=== PATIENT | male | born 1940 | race American Indian/Alaskan Native ===

== ENCOUNTER 2016-04-27 12:15 | Inpatient (IN) | payer MEDICARE ==
[2016-04-27] MEDS ORDERED: MAGNESIUM SULFATE 2GM/50ML 50 ML IV ONE (13:04)
[2016-04-27] MEDS ORDERED: LASIX IV ONE (13:07)
[2016-04-27] MEDS ORDERED: DUONEB 0.5 MG-3 MG/3 ML SOLN IH ONE (13:08)
--- NOTE | 2016-04-27 13:10 | Emergency Department Report ---
HPI - General Chief Complaint: Dyspnea/Respdistress Time Seen by Provider: 04/27/16 12:49 - HPI HPI: The patient is a 72-year-old male with a significant history of COPD and lung cancer, presents for evaluation of dyspnea. The patient reports dyspnea for greater than the past one day, constant, severe, exacerbated with physical activity, worsening this morning. The patient reports associated wheezing as well. The patient denies fever, chest pain, cough, syncope, hemoptysis, unilateral leg swelling, back pain, abdominal pain, vomiting. ED Past Medical Hx - Past Medical History Hx Hypertension: Yes Hx Diabetes: Yes Hx GERD: Yes Hx Arthritis: Yes Hx Psychiatric Treatment: Yes (personality disorder, insomnia, restlessness & agitation) Hx Asthma: Yes Hx COPD: Yes Additional medical history: a-fib, cataract - Surgical History Hx Open Heart Surgery: Yes Additional Surgical History: JONAH - Social History Smoking Status: Former Smoker Substance Use Type: None - Medications Home Medications: Home Medications Medication Instructions Recorded Confirmed Last Taken Type Albuterol Sulfate [Proair 90 mcg IH Q12HR PRN 03/23/16 04/27/16 1 Day Ago History Respiclick] Amiodarone [Cordarone 200 MG TAB] 200 mg PO BID 03/23/16 04/27/16 1 Day Ago History Aspirin [Aspirin BABY CHEW TAB] 81 mg PO QDAY 03/23/16 04/27/16 1 Day Ago History Atorvastatin Calcium [Lipitor] 80 mg PO QHS 03/23/16 04/27/16 1 Day Ago History Bimatoprost [Lumigan 0.01%] 1 drop OP QPM 03/23/16 04/27/16 1 Day Ago History Carvedilol [Coreg] 6.25 mg PO BID 03/23/16 04/27/16 1 Day Ago History Clopidogrel [Plavix] 75 mg PO QDAY 03/23/16 04/27/16 1 Day Ago History Famotidine [Pepcid] 10 mg PO BID 03/23/16 04/27/16 1 Day Ago History Glimepiride [Amaryl] 1 mg PO QAM 03/23/16 04/27/16 1 Day Ago History Insulin Regular, Human [HumuLIN R] See Protocol SQ ACHS 03/23/16 04/27/16 1 Day Ago History Ipratropium/Albuterol Sulfate 1 ampul IH Q4HR 03/23/16 04/27/16 1 Day Ago History [Duoneb 0.5 mg-3 mg/3 ml Soln] Latanoprost 0.005% [Xalatan 0.005%] 1 drop OP QPM 03/23/16 04/27/16 1 Day Ago History Lisinopril [Zestril TAB] 40 mg PO QDAY 03/23/16 04/27/16 1 Day Ago History Metformin HCl [Glucophage Xr] 500 mg PO BID 03/23/16 04/27/16 1 Day Ago History Mirtazapine 7.5 mg PO QHS 03/23/16 04/27/16 1 Day Ago History Montelukast [Singulair] 10 mg PO QPM 03/23/16 04/27/16 1 Day Ago History Risperidone Microspheres 25 mg IM QMONTH 03/23/16 04/27/16 1 Day Ago History [RisperDAL Consta] Zolpidem [Ambien] 5 mg PO QHS PRN 03/23/16 04/27/16 1 Day Ago History traMADol [Ultram 50 MG tab] 50 mg PO Q4HR PRN 03/23/16 04/27/16 1 Day Ago History Diltiazem Cd [Cardizem CD] 240 mg PO QDAY #30 capsule 03/27/16 04/27/16 Unknown Rx LORazepam [Ativan] 1 mg PO TID PRN 04/27/16 04/27/16 Unknown History Nitroglycerin [Nitrostat] 0.4 mg SL Q5M PRN 04/27/16 04/27/16 Unknown History ED Review of Systems ROS: Stated complaint: MELIZA Other details as noted in HPI Constitutional: denies: fever ENT: denies: throat or neck pain Respiratory: reports shortness of breath Cardiovascular: denies: chest pain Endocrine: denies unexplained weight loss or gain Gastrointestinal: denies: abdominal pain, nausea Genitourinary: denies: dysuria Musculoskeletal: denies: leg swelling Skin: denies: rash Neurological: denies: headache Hematological/Lymphatic: denies: easy bleeding or easy bruising Psych: denies sadness or hopelessness Physical Exam - Physical Exam Vital Signs: Vital Signs 04/27/16 12:38 O2 Sat by Pulse 90 Oximetry Physical Exam: General: well-nourished, well-developed, no acute distress Head: Normocephalic, atraumatic Eyes: normal sclera ENT: Mucous membranes are pale and dry Neck: trachea midline, neck supple, No neck stiffness, no cervical adenopathy Respiratory: Significantly diminished breath sounds and wheezing present throughout lung jalloh bilaterally, positive costal retractions, patient in respiratory distress Cardio: S1 and S2 present, no murmurs, rubs, gallops, capillary refill is delayed Abdomen: Normoactive bowel sounds, soft abdomen, no rigidity, no guarding or rebound tenderness Chest WALL/Back: No tenderness to palpation of the chest wall, no CVA tenderness with percussion Musc: No pitting edema Skin: No rash Neuro: no facial drooping, normal speech Psych: Normal affect ED Course Vital Signs 04/27/16 12:38 O2 Sat by Pulse 90 Oximetry ED Medical Decision Making - Lab Data Result diagrams: 04/27/16 13:06 04/27/16 13:06 - Medical Decision Making The patient was seen and examined by myself. The patient is placed on a satellite project site monitor and continuous pulse ox. On initial evaluation, the patient was found to be in no distress. Evaluation orders were placed. The patient is given a DuoNeb breathing treatment. The patient is given IV site of a jaw and IV magnesium for treatment of acute COPD exacerbation. On reassessment the patient remains in respiratory distress and is placed on BiPAP. Chest x-ray demonstrates interstitial infiltrate. Bedside assessments were performed to evaluate patient responsiveness to positive ventilation. Lab results reveal elevated potassium of 6.5, elevated PCO2 of 75, low pH 7.15, and leukocytosis, WBC 14. The patient is given a by mouth, insulin, sodium bicarbonate, Kayexalate for treatment of hyperkalemia. The on-call hospitalist service was contacted. They agreed to admit the patient for further treatment and close monitoring. The ED admit order was placed. The patient was admitted in guarded condition. Critical Care Time: Yes Critical care time in (mins) excluding proc time.: 35 Critical care attestation.: Due to the critical nature of this patients presentation, which necessitated multiple bedside assessments, manipulation and supportive measures to prevent further life threatening deterioration, I would like to bill for a total of 35 minutes of critical care time. This was exclusive of any separately billable procedures. Critical Care Time: 35 ED Disposition Clinical Impression: COPD exacerbation, Acute hyperkalemia, Acute respiratory failure with hypoxia and hypercapnia, Acute respiratory acidosis Disposition: OP ADMITTED IP TO THIS HOSP Is pt being admited?: Yes Does the pt Need Aspirin: Yes Condition: Critical Instructions: Chronic Obstructive Pulmonary Disease (ED) Referrals: TATIANA AGUILAR DO [Primary Care Provider] - 3-5 Days Time of Disposition: 13:10
[2016-04-27] MEDS ORDERED: BABY ASPIRIN PO ONE (13:11)
[2016-04-27] MEDS ORDERED: ATIVAN ONE (13:19)
[2016-04-27] MEDS ORDERED: ATIVAN IV ONE (13:21)
--- NOTE | 2016-04-27 13:25 | XRay Report ---
AP CHEST : 04/27/16 12:15:00 CLINICAL: Chest pain. COMPARISON:03/22/16 FINDINGS: The chin obscures the upper mid chest. Normal heart and pulmonary vessels. Chronic bilateral interstitial opacities unchanged since the previous exam. IMPRESSION: No acute cardiopulmonary process.
[2016-04-27 13:39] LABS: Alanine Aminotransferase 14 units/L (7-56); Albumin 3.6 g/dL (3.9-5); Albumin/Globulin Ratio 0.9 %; Alkaline Phosphatase 134 units/L (35-129); Anion Gap 18 mmol/L; BUN/Creatinine Ratio 13.07; Bilirubin,Total 0.7 mg/dL (0.1-1.2); Blood Urea Nitrogen 17 mg/dL (9-20); Calcium 9.2 mg/dL (8.4-10.2); Carbon Dioxide 23 mmol/L (22-30); Chloride 102.2 mmol/L (98-107); Glucose 197 mg/dL (75-100); Sodium 137 mmol/L (137-145); Total Protein 7.5 g/dL (6.3-8.2)
[2016-04-27 13:39] LABS: ISTAT Base Excess -2; ISTAT HCO3 26.6; ISTAT PCO2 75.2 (35-45); ISTAT PH 7.157 (7.35-7.45); ISTAT PO2 172 (80-105); ISTAT SO2 99; ISTAT TCO2 29
[2016-04-27 13:47] LABS: Basophils % (Auto) 1.1 % (0.0-1.8); Eosinophils % (Auto) 3.4 % (0.0-4.3); Mean Corpuscular HGB Conc 29 % (32-34); Mean Corpuscular Volume 74 fl (84-94); Platelet Count 561 K/mm3 (140-440); Red Blood Count 4.37 M/mm3 (3.65-5.03); White Blood Count 14.6 K/mm3 (4.5-11.0)
[2016-04-27 13:49] LABS: Hematocrit 32.5 % (35.5-45.6); Hemoglobin 9.5 gm/dl (11.8-15.2)
[2016-04-27 13:50] LABS: Mean Corpuscular Hemoglobin 22 pg (28-32)
[2016-04-27 13:51] LABS: Potassium 6.5 mmol/L (3.6-5.0)
[2016-04-27] MEDS ORDERED: PROVENTIL IH ONE (14:07)
[2016-04-27] MEDS ORDERED: SODIUM BICARBONATE IV ONE ×2 (14:07→15:00)
[2016-04-27] MEDS ORDERED: KAYEXALATE PO ONE (14:08)
[2016-04-27] MEDS ORDERED: D50W (25GM) IV ONE (14:13)
[2016-04-27] MEDS: D50W (25GM) IV ONE (14:27)
[2016-04-27 14:43] LABS: Bacteria,Urine 1+ /HPF (Negative); Bilirubin,Urine NEG (Negative); Blood,Urine NEG (Negative); Ketones,Urine NEG (Negative); Leukocyte Esterase,Urine NEG (Negative); Mucus,Urine FEW /HPF; Nitrite,Urine NEG (Negative); Urobilinogen,Urine < 2.0 mg/dL (<2.0)
[2016-04-27 15:11] LABS: ISTAT Base Excess 0; ISTAT PCO2 58.9 (35-45); ISTAT PO2 104 (80-105); ISTAT SO2 97; ISTAT TCO2 29
--- NOTE | 2016-04-27 15:35 | Event Note ---
Date: 04/27/16 See H/p in reports Acute resp failure [facility]
[2016-04-27] MEDS ORDERED: AMBIEN PO PRN (16:28)
[2016-04-27] MEDS ORDERED: RISPERIDONE MICROSPHERES 25 MG IM SCH (16:30)
[2016-04-27] MEDS ORDERED: ALUM-MAG HYDROX-SIMETH 200-200-20MG/5ML PO PRN (16:44)
[2016-04-27] MEDS ORDERED: DULCOLAX PR PRN (16:44)
[2016-04-27] MEDS ORDERED: MILK OF MAGNESIA PO PRN (16:44)
[2016-04-27] MEDS ORDERED: DILAUDID IV PRN (16:44)
[2016-04-27] MEDS ORDERED: DUONEB 0.5 MG-3 MG/3 ML SOLN IH PRN (16:55)
[2016-04-27] MEDS ORDERED: NON-FORMULARY (Bimatoprost [Lumigan 0.01%] 1 DROP) OP SCH (18:00)
[2016-04-27] MEDS ORDERED: LEVAQUIN 750MG/150ML 150 ML IV SCH (18:00)
--- NOTE | 2016-04-27 18:36 | History and Physical Report ---
CHIEF COMPLAINT: Worsening shortness of breath for past one day. HISTORY OF PRESENT ILLNESS: A 75-year-old -[place] male with multiple medical problems, end-stage lung disease with hypertension, COPD, diabetes, gastroesophageal reflux disease, arthritis, and personality disorder, who comes in for increasing shortness of breath and worsening shortness of breath since yesterday. The patient reports dyspnea for greater than 1 day and unable to do even minimal exertion. Wheezing heavily. No fever, no chills. No hemoptysis. No leg swelling. PAST MEDICAL HISTORY: Significant for end-stage lung disease, hypertension, diabetes, COPD, gastroesophageal reflux disease, arthritis, personality disorder, insomnia, restlessness and agitation, asthma, atrial fibrillation, and cataracts. PAST SURGICAL HISTORY: Open heart surgery. SOCIAL HISTORY: Heavy smoker, stopped smoking recently. FAMILY HISTORY: Significant for hypertension. CURRENT MEDICATIONS: Amiodarone 200 mg twice a day, aspirin 81 mg p.o. daily, Lipitor 80 mg p.o. at bedtime, Lumigan 0.01% one drop at night time, Coreg 6.25 twice a day, and clopidogrel, Plavix 75 mg p.o. daily. Pepcid 10 mg p.o. b.i.d. Glimepiride, Amaryl 1 mg p.o. daily. Regular insulin a.c. and at bedtime, dose unknown. Lisinopril 40 mg p.o. daily, metformin 500 mg twice a day, Singulair 10 mg p.o. daily, Risperdal 25 mg IM q. monthly, zolpidem 5 mg p.o. at bedtime, tramadol 50 mg p.o. q. 4 hours, diltiazem 240 mg p.o. daily, lorazepam 1 mg p.o. t.i.d., and nitroglycerin 0.4 mg sublingual q. 5 minutes p.r.n. REVIEW OF SYSTEMS: Significant for both severe shortness of breath and wheezing and is unable to do even a small amount of physical activity. Otherwise, review of systems is essentially negative. PHYSICAL EXAMINATION: GENERAL: Elderly male, cooperative during examination, in severe respiratory distress, on BiPAP. VITAL SIGNS: Blood pressure is 99/62 and pulse is 102. Sats were initially low but on BiPAP near 99%. Respiratory rate is 25. HEENT: Unremarkable. Pupils are equal and reactive. NECK: Supple, no lymphadenopathy, no thyromegaly. LUNGS: Clear to auscultation and percussion. Very poor air entry. Bilateral wheezing and rhonchi, inspiratory and expiratory present. Severely decreased air entry. CARDIOVASCULAR: S1, S2 heard. No gallop, no murmur, no rub. Apical impulse in left fifth intercostal space and midclavicular line. ABDOMEN: Soft and benign. No hepatosplenomegaly. No guarding, no rigidity. Hernial orifices are normal. EXTREMITIES: Good pedal pulses. No pedal edema. CENTRAL NERVOUS SYSTEM: Decreased sensorium secondary to hypoxia. LABORATORY DATA: Chest x-ray shows severe emphysema. No acute cardiopulmonary process. Has chronic bilateral interstitial opacities, unchanged since the previous exam. Labs significant for white count of 14,600, H and H of 9.5 and 32.5, and platelet count of 561,000. Potassium is 6.5, sodium is 137, BUN and creatinine are 17 and 1.3, alkaline phosphatase is 134. Urine shows protein 100, otherwise no signs of infection. ABG: PCO2 of 75, pH of 7.15. Repeated ABG shows pH of 7.27, pCO2 of 58.9, and pO2 of 104. ASSESSMENT AND PLAN: 1. Acute respiratory failure with hypoxia and hypercapnia, aggressive nebulizer treatments, IV Levaquin and IV Solu-Medrol at 125 q. 8 hours. Tempering Kiln Tender consult requested. Intubation if necessary. 2. Arrhythmias and atrial fibrillation, amiodarone 200 mg twice a day to be continued. 3. Hyperlipidemia. Continue Lipitor 80 mg daily. 4. Hypertension. Continue Coreg 6.25 b.i.d. and lisinopril 40 mg p.o. daily and diltiazem 240 mg p.o. daily. 5. Insulin-dependent diabetes, insulin a.c. and at bedtime and coverage. Check A1c. 6. Personality disorder and agitation. Continue Risperdal 25 mg IM q. monthly. 7. Generalized anxiety disorder. Continue lorazepam 1 mg t.i.d. 8. Coronary artery disease. Continue Plavix. 9. Deep venous thrombosis prophylaxis, Lovenox 40 mg subcutaneous daily. PROGNOSIS: Guarded. CRITICAL CARE STATEMENT: The high probability of a clinically significant sudden or life-threatening deterioration of the cardiorespiratory system required my full and direct attention, intervention, and person management. Aggregate critical care time was 40 minutes. The time is in addition to the time spent performing the reported procedures but includes the followin. Data review and interpretation. 2. The patient assessment and monitoring of vital signs. 3. Documentation. 4. Medication orders and management. JOB# [id number] JERRICA/NTS
[2016-04-27] MEDS ORDERED: KAYEXALATE ONE (21:28)
[2016-04-27] MEDS ORDERED: PEPCID PO SCH (22:00)
[2016-04-27] MEDS ORDERED: NON-FORMULARY (Mirtazapine [Mirtazapine] 7.5 MG) PO SCH (22:00)
[2016-04-27] MEDS: CORDARONE PO SCH (22:01)
[2016-04-27] MEDS: BABY ASPIRIN PO SCH (22:01)
[2016-04-27] MEDS: CARDIZEM CD PO SCH (22:01)
[2016-04-27] MEDS: ZESTRIL PO SCH (22:03)
[2016-04-27] MEDS: XALATAN 0.005% OU SCH (22:03)
[2016-04-27] MEDS: PLAVIX PO SCH (22:03)
[2016-04-27] MEDS: COREG PO SCH (22:13)
[2016-04-27] MEDS: REMERON PO SCH (22:13)
[2016-04-27] MEDS: PEPCID PO SCH (22:13)
[2016-04-27] MEDS: GLUCOPHAGE XR PO SCH (22:13)
[2016-04-27] MEDS: SINGULAIR PO SCH (22:14)
[2016-04-27] MEDS ORDERED: KAYEXALATE PR ONE ×2 (22:16→22:22)
[2016-04-28] MEDS: ATIVAN PO PRN ×2 (00:22→10:30)
[2016-04-28] MEDS: DUONEB 0.5 MG-3 MG/3 ML SOLN IH SCH ×5 (01:26→20:38)
[2016-04-28 07:07] LABS: Alanine Aminotransferase 11 units/L (7-56); Albumin 3.3 g/dL (3.9-5); Albumin/Globulin Ratio 0.9 %; Alkaline Phosphatase 102 units/L (35-129); Anion Gap 22 mmol/L; Bilirubin,Total 0.9 mg/dL (0.1-1.2); Blood Urea Nitrogen 26 mg/dL (9-20); Calcium 9.1 mg/dL (8.4-10.2); Carbon Dioxide 25 mmol/L (22-30); Chloride 102.7 mmol/L (98-107); Glucose 130 mg/dL (75-100); Potassium 5.3 mmol/L (3.6-5.0); Sodium 144 mmol/L (137-145)
[2016-04-28 07:12] LABS: Hematocrit 29.5 % (35.5-45.6); Hemoglobin 8.9 gm/dl (11.8-15.2); Mean Corpuscular HGB Conc 30 % (32-34); Mean Corpuscular Hemoglobin 22 pg (28-32); Mean Corpuscular Volume 74 fl (84-94); Platelet Count 449 K/mm3 (140-440); Red Blood Count 4.01 M/mm3 (3.65-5.03); Red Cell Distribution Width 20.3 % (13.2-15.2); White Blood Count 9.3 K/mm3 (4.5-11.0)
[2016-04-28 07:13] LABS: Basophils % (Auto) 0.3 % (0.0-1.8)
[2016-04-28] MEDS: AMARYL PO SCH (08:23)
[2016-04-28] MEDS ORDERED: NON-FORMULARY (Glimepiride [Amaryl] 1 MG) PO SCH (10:00)
--- NOTE | 2016-04-28 10:01 | Progress Note ---
Assessment and Plan Assessment and plan: 1. Acute hypoxic/hypercapnic respiratory failure. Continue BiPAP as needed. Pulmonary consultation. 2. Acute COPD exacerbation. Continue aggressive nebulizer treatment, IV antibiotics and IV Solu-Medrol. 3. Atrial fibrillation. Continue amiodarone. 4. Hypertension. Continue Coreg, diltiazem and lisinopril. 5. Hyperlipidemia. Continue Lipitor. 6. Personality disorder. Continuing Risperdal and Ativan. The high probability of a clinically significant, sudden or life threatening deterioration of the [respiratory] system(s) required my full and direct attention, intervention and personal management. The aggregate critical care time was [31] minutes. This time is in addition to time spent performing reported procedures but includes the following: [x] Data Review and interpretation [x] Patient assessment and monitoring of vital signs [x] Documentation [x] Medication orders and management History Interval history: 75-year-old -[place]og[place] male with multiple medical problems including end- stage lung disease, afib, hypertension, COPD, diabetes mellitus type 2, GERD, osteoarthritis and personality disorder who presented to the emergency department with complaints of dyspnea. Patient currently with BiPAP at 35%. Hospitalist Physical - Constitutional Vitals: Temp Pulse Resp BP Pulse Ox 63 24 116/56 99 04/28/16 08:23 04/28/16 08:23 04/28/16 08:07 04/28/16 08:07 General appearance: Present: no acute distress, well-nourished - EENT Eyes: Present: PERRL, EOM intact ENT: hearing intact, clear oral mucosa, dentition normal - Neck Neck: Present: supple, normal ROM - Respiratory Respiratory effort: normal Respiratory: bilateral: diminished, rhonchi - Cardiovascular Rhythm: regular Heart Sounds: Present: S1 & S2. Absent: gallop, rub - Extremities Extremities: no ischemia, No edema, Full ROM - Abdominal General gastrointestinal: soft, non-tender, non-distended, normal bowel sounds - Integumentary Integumentary: Present: clear, warm, dry - Neurologic Neurologic: CNII-XII intact, moves all extremities Results - Labs CBC & Chem 7: 04/28/16 06:26 04/28/16 06:26 Labs: Laboratory Last Values WBC 9.3 K/mm3 (4.5-11.0) 04/28/16 06:26 RBC 4.01 M/mm3 (3.65-5.03) 04/28/16 06:26 Hgb 8.9 gm/dl (11.8-15.2) L 04/28/16 06:26 Hct 29.5 % (35.5-45.6) L 04/28/16 06:26 MCV 74 fl (84-94) L 04/28/16 06:26 MCH 22 pg (28-32) L 04/28/16 06:26 MCHC 30 % (32-34) L 04/28/16 06:26 RDW 20.3 % (13.2-15.2) H 04/28/16 06:26 Plt Count 449 K/mm3 (140-440) H 04/28/16 06:26 Lymph % (Auto) 11.0 % (13.4-35.0) L 04/28/16 06:26 [place] % (Auto) 1.7 % (0.0-7.3) 04/28/16 06:26 Eos % (Auto) 0.0 % (0.0-4.3) 04/28/16 06:26 Baso % (Auto) 0.3 % (0.0-1.8) 04/28/16 06:26 Lymph # 1.0 K/mm3 (1.2-5.4) L 04/28/16 06:26 [place] # 0.2 K/mm3 (0.0-0.8) 04/28/16 06:26 Eos # 0.0 K/mm3 (0.0-0.4) 04/28/16 06:26 Baso # 0.0 K/mm3 (0.0-0.1) 04/28/16 06:26 Seg Neutrophils % 87.0 % (40.0-70.0) H 04/28/16 06:26 Seg Neutrophils # 8.1 K/mm3 (1.8-7.7) H 04/28/16 06:26 POC ABG pH 7.270 (7.35-7.45) L 04/27/16 15:03 POC ABG pCO2 58.9 (35-45) H 04/27/16 15:03 POC ABG pO2 104 (80-105) 04/27/16 15:03 POC ABG HCO3 27.0 04/27/16 15:03 POC ABG Total CO2 29 04/27/16 15:03 POC ABG O2 Sat 97 04/27/16 15:03 POC ABG Base Excess 0 04/27/16 15:03 FiO2 45 % 04/27/16 15:03 Sodium 144 mmol/L (137-145) D 04/28/16 06:26 Potassium 5.3 mmol/L (3.6-5.0) H 04/28/16 06:26 Chloride 102.7 mmol/L (98-107) 04/28/16 06:26 Carbon Dioxide 25 mmol/L (22-30) 04/28/16 06:26 Anion Gap 22 mmol/L 04/28/16 06:26 BUN 26 mg/dL (9-20) H 04/28/16 06:26 Creatinine 1.3 mg/dL (0.8-1.5) 04/28/16 06:26 Estimated GFR > 60 ml/min 04/28/16 06:26 BUN/Creatinine Ratio 20.00 % 04/28/16 06:26 Glucose 130 mg/dL (75-100) H 04/28/16 06:26 Lactic Acid 0.8 mmol/L (0.7-2.0) 04/27/16 13:06 Calcium 9.1 mg/dL (8.4-10.2) 04/28/16 06:26 Total Bilirubin 0.9 mg/dL (0.1-1.2) 04/28/16 06:26 AST 16 units/L (5-40) 04/28/16 06:26 ALT 11 units/L (7-56) 04/28/16 06:26 Alkaline Phosphatase 102 units/L (35-129) 04/28/16 06:26 Troponin T 0.026 ng/mL (0.00-0.029) 04/27/16 13:06 NT-Pro-B Natriuret Pep 818.3 pg/mL (0-900) 04/27/16 13:06 Total Protein 7.0 g/dL (6.3-8.2) 04/28/16 06:26 Albumin 3.3 g/dL (3.9-5) L 04/28/16 06:26 Albumin/Globulin Ratio 0.9 % 04/28/16 06:26 Urine Color Yellow (Yellow) 04/27/16 14:00 Urine Turbidity Slightly-cloudy (Clear) 04/27/16 14:00 Urine pH 5.0 (5.0-7.0) 04/27/16 14:00 Ur Specific [place] 1.019 (1.003-1.030) 04/27/16 14:00 Urine Protein 100 mg/dl mg/dL (Negative) 04/27/16 14:00 Urine Glucose (UA) Neg mg/dL (Negative) 04/27/16 14:00 Urine Ketones Neg mg/dL (Negative) 04/27/16 14:00 Urine Blood Neg (Negative) 04/27/16 14:00 Urine Nitrite Neg (Negative) 04/27/16 14:00 Urine Bilirubin Neg (Negative) 04/27/16 14:00 Urine Urobilinogen < 2.0 mg/dL (<2.0) 04/27/16 14:00 Ur Leukocyte Esterase Neg (Negative) 04/27/16 14:00 Urine WBC (Auto) 1.0 /HPF (0.0-6.0) 04/27/16 14:00 Urine RBC (Auto) 1.0 /HPF (0.0-6.0) 04/27/16 14:00 Urine Bacteria (Auto) 1+ /HPF (Negative) 04/27/16 14:00 Hyaline Casts 1 /LPF 04/27/16 14:00 Urine Mucus Few /HPF 04/27/16 14:00
[2016-04-28] MEDS: CARDIZEM CD PO SCH (10:22)
[2016-04-28] MEDS: BABY ASPIRIN PO SCH (10:23)
[2016-04-28] MEDS: CORDARONE PO SCH ×2 (10:24→22:06)
[2016-04-28] MEDS: GLUCOPHAGE XR PO SCH ×2 (10:26→22:07)
--- NOTE | 2016-04-28 10:27 | Consultation ---
History of Present Illness Consult date: 04/28/16 Requesting physician: STARLA BUSTAMANTE Reason for consult: other (Acute Hypoxemic Hypercapnic Respiratory Failure) History of present illness: PULMONARY CONSULT NOTE (Full note dictated # [id number]) please see dictated notes for full details Medications and Allergies Allergies Allergy/AdvReac Type Severity Reaction Status Date / Time No Known Allergies Allergy Verified 04/27/16 20:01 Home Medications Medication Instructions Recorded Confirmed Last Taken Type Albuterol Sulfate [Proair 90 mcg IH Q12HR PRN 03/23/16 04/27/16 1 Day Ago History Respiclick] Amiodarone [Cordarone 200 MG TAB] 200 mg PO BID 03/23/16 04/27/16 1 Day Ago History Aspirin [Aspirin BABY CHEW TAB] 81 mg PO QDAY 03/23/16 04/27/16 1 Day Ago History Atorvastatin Calcium [Lipitor] 80 mg PO QHS 03/23/16 04/27/16 1 Day Ago History Bimatoprost [Lumigan 0.01%] 1 drop OP QPM 03/23/16 04/27/16 1 Day Ago History Carvedilol [Coreg] 6.25 mg PO BID 03/23/16 04/27/16 1 Day Ago History Clopidogrel [Plavix] 75 mg PO QDAY 03/23/16 04/27/16 1 Day Ago History Famotidine [Pepcid] 10 mg PO BID 03/23/16 04/27/16 1 Day Ago History Glimepiride [Amaryl] 1 mg PO QAM 03/23/16 04/27/16 1 Day Ago History Insulin Regular, Human [HumuLIN R] See Protocol SQ ACHS 03/23/16 04/27/16 1 Day Ago History Ipratropium/Albuterol Sulfate 1 ampul IH Q4HR 03/23/16 04/27/16 1 Day Ago History [Duoneb 0.5 mg-3 mg/3 ml Soln] Latanoprost 0.005% [Xalatan 0.005%] 1 drop OP QPM 03/23/16 04/27/16 1 Day Ago History Lisinopril [Zestril TAB] 40 mg PO QDAY 03/23/16 04/27/16 1 Day Ago History Metformin HCl [Glucophage Xr] 500 mg PO BID 03/23/16 04/27/16 1 Day Ago History Mirtazapine 7.5 mg PO QHS 03/23/16 04/27/16 1 Day Ago History Montelukast [Singulair] 10 mg PO QPM 03/23/16 04/27/16 1 Day Ago History Risperidone Microspheres 25 mg IM QMONTH 03/23/16 04/27/16 1 Day Ago History [RisperDAL Consta] Zolpidem [Ambien] 5 mg PO QHS PRN 03/23/16 04/27/16 1 Day Ago History traMADol [Ultram 50 MG tab] 50 mg PO Q4HR PRN 03/23/16 04/27/16 1 Day Ago History Diltiazem Cd [Cardizem CD] 240 mg PO QDAY #30 capsule 03/27/16 04/27/16 Unknown Rx LORazepam [Ativan] 1 mg PO TID PRN 04/27/16 04/27/16 Unknown History Nitroglycerin [Nitrostat] 0.4 mg SL Q5M PRN 04/27/16 04/27/16 Unknown History Active Meds: Active Medications Al Hydrox/Mg Hydrox/Simethicone (Alum-Mag Hydrox-Simeth [id number]/5ml) 30 ml PO Q4H PRN PRN Reason: Indigestion Albuterol (Proventil) 2.5 mg IH Q4HRT PRN PRN Reason: Shortness Of Breath Albuterol/Ipratropium (Duoneb 0.5 Mg-3 Mg/3 Ml Soln) 1 ampul IH Q6HRT [facility] Last Admin: 04/28/16 08:10 Dose: 1 ampul Amiodarone HCl (Cordarone) 200 mg PO BID [facility] Last Admin: 04/27/16 22:01 Dose: Not Given Aspirin (Baby Aspirin) 81 mg PO QDAY [facility] Last Admin: 04/27/16 22:01 Dose: Not Given Atorvastatin Calcium (Lipitor) 80 mg PO QHS [facility] Last Admin: 04/27/16 22:13 Dose: Not Given Bisacodyl (Dulcolax) 10 mg [place] QDAY PRN PRN Reason: constipation unrelieved by MOM Carvedilol (Coreg) 6.25 mg PO BID [facility] Last Admin: 04/27/16 22:13 Dose: Not Given Clopidogrel Bisulfate (Plavix) 75 mg PO QDAY [facility] Last Admin: 04/27/16 22:03 Dose: Not Given Diltiazem HCl (Cardizem Cd) 240 mg PO QDAY [facility] Last Admin: 04/27/16 22:01 Dose: Not Given Enoxaparin Sodium (Lovenox) 40 mg SUB-Q QDAY [facility] Famotidine (Pepcid) 10 mg PO BID [facility] Last Admin: 04/27/16 22:13 Dose: Not Given Glimepiride (Amaryl) 1 mg PO QDDIAB [facility] Hydromorphone HCl (Dilaudid) 0.5 mg IV Q3H PRN PRN Reason: Pain , Severe (7-10) Levofloxacin/Dextrose (Levaquin 750mg/150ml) 150 mls @ 100 mls/hr IV Q24H [facility] PRN Reason: Protocol Last Admin: 04/27/16 21:30 Dose: 100 mls/hr Latanoprost (Xalatan 0.005%) 1 drops OU QPM [facility] Last Admin: 04/27/16 22:03 Dose: 1 drops Lisinopril (Zestril) 40 mg PO QDAY [facility] Last Admin: 04/27/16 22:03 Dose: Not Given Lorazepam (Ativan) 1 mg PO TID PRN PRN Reason: Agitation Last Admin: 04/28/16 00:22 Dose: 1 mg Magnesium Hydroxide (Milk Of Magnesia) 30 ml PO Q4H PRN PRN Reason: Constipation Metformin HCl (Glucophage Xr) 500 mg PO BID [facility] Last Admin: 04/27/16 22:13 Dose: Not Given Methylprednisolone Sodium Succinate (Solu-Medrol) 125 mg IV Q8H [facility] Last Admin: 04/28/16 06:29 Dose: 125 mg Mirtazapine (Remeron) 7.5 mg PO QHS [facility] Last Admin: 04/27/16 22:13 Dose: Not Given Miscellaneous Medication (Risperidone Microspheres [Risperdal Consta]) 25 mg IM QMONTH [facility] Montelukast Sodium (Singulair) 10 mg PO QPM [facility] Last Admin: 04/27/16 22:14 Dose: Not Given Zolpidem Tartrate (Ambien) 5 mg PO QHS PRN PRN Reason: Sleep Physical Examination Vital signs: Vital Signs Pulse Ox 90 04/27/16 12:38 Results - Laboratory Findings CBC and BMP: 04/28/16 06:26 04/28/16 06:26 ABG POC ABG pH 7.270 (7.35-7.45) L 04/27/16 15:03 POC ABG pCO2 58.9 (35-45) H 04/27/16 15:03 POC ABG pO2 104 (80-105) 04/27/16 15:03 POC ABG HCO3 27.0 04/27/16 15:03 POC ABG Total CO2 29 04/27/16 15:03 POC ABG O2 Sat 97 04/27/16 15:03 Abnormal lab findings: Abnormal Labs 04/28/16 04/28/16 06:26 06:26 Hgb 8.9 L Hct 29.5 L MCV 74 L MCH 22 L MCHC 30 L RDW 20.3 H Plt Count 449 H Lymph % (Auto) 11.0 L Lymph # 1.0 L Seg Neutrophils % 87.0 H Seg Neutrophils # 8.1 H Potassium 5.3 H BUN 26 H Glucose 130 H Albumin 3.3 L
[2016-04-28] MEDS: ZESTRIL PO SCH (10:30)
[2016-04-28] MEDS: PLAVIX PO SCH (10:32)
[2016-04-28 12:18] LABS: ISTAT Base Excess 4; ISTAT HCO3 28.1; ISTAT PH 7.455 (7.35-7.45); ISTAT PO2 106 (80-105); ISTAT SO2 98; ISTAT TCO2 29
[2016-04-28] MEDS: PEPCID PO SCH ×2 (13:29→22:07)
[2016-04-28] MEDS: LOVENOX SUB-Q SCH (13:30)
--- NOTE | 2016-04-28 15:00 | Admit Criteria Form ---
Admission Criteria Documentation: RESPIRATORY FAILURE GRG Clinical Indications for Admission to Inpatient Care (Place 'X' for any and all applicable criteria): Hospital admission is needed for appropriate care of the patient because of acute respiratory failure or insufficiency as indicated by ANY ONE of the following(1)(2)(3)(4)(5)(6)(7)(8): [X ]I. Mechanical ventilation needed (acute invasive or noninvasive) [X ]II. Severe ventilation deficit as indicated by ANY ONE of the following (9 ) [X ]a) Respiratory acidosis (pH less than 7.32 and partial pressure of carbon dioxide greater than 40 mm Hg (5.3 kPa)) [ X]b) Partial pressure of carbon dioxide greater than 44 mm Hg (5.9 kPa) (new) [ ]c) Airflow measurements less than 25% of predicted (eg, peak expiratory flow rate less than 100 L/minute) [ ]d) Forced vital capacity less than 15 mL/kg of ideal body weight, or 50% decrease in vital capacity from baseline [ ]III. Noncardiac pulmonary edema not resolving with rapid emergency treatment (8) [ ]IV. Severe respiratory distress as indicated by ANY ONE of the following: [ ]a) Severe tachypnea (respiratory rate greater than 30, greater than 45 for 6-month-old, greater than 60 for ) [ ]b) Severe hypoxemia (partial pressure of oxygen less than 50 mm Hg ( 6.7 kPa) on greater than 50% oxygen or partial pressure of oxygen to FIO2 ratio less than 200) [ ]c) Mental status deterioration from respiratory disease [ ]V. Airway obstruction or inadequate protection [A](10)(11) The original [employer] content created by [employer] has been revised. The portions of the content which have been revised are identified through the use of italic text or in bold, and [facility] has neither reviewed nor approved the modified material. All other unmodified content is copyright [employer]. Please see references footnoted in the original [employer] edition 2016 Admission Criteria Met: Yes
[2016-04-28] MEDS: COREG PO SCH ×2 (17:25→22:06)
[2016-04-28] MEDS: LEVAQUIN PO SCH (19:37)
[2016-04-28] MEDS: SINGULAIR PO SCH (19:37)
[2016-04-28] MEDS: DILAUDID IV PRN (19:41)
[2016-04-28] MEDS: XALATAN 0.005% OU SCH (19:43)
[2016-04-28] MEDS: REMERON PO SCH (22:07)
[2016-04-29] MEDS: DUONEB 0.5 MG-3 MG/3 ML SOLN IH SCH ×5 (02:32→20:44)
--- NOTE | 2016-04-29 05:25 | Consultation ---
PULMONARY AND CRITICAL CARE CONSULTATION NOTE CONSULTING PHYSICIAN: Verna Tan MD REASON FOR CONSULTATION: Acute on chronic hypoxemic hypercapnic respiratory failure, acute kidney injury. CHIEF COMPLAINT AND HISTORY OF PRESENT ILLNESS: The patient is a 75-year-old male with past medical history significant in this context both for a diagnosis of chronic obstructive lung disease and a questionable history of lung cancer, I believe he is a shelter resident, who was brought into the Emergency Room late yesterday, complaining of dyspnea. The report it had been going on for about a day. It was constant. He denied any chest pain at that time. On day of presentation, he came in with significant wheezing, was using accessory muscles of respiration. He denied gross or streaky hemoptysis. Arterial blood gases revealed hypercapnia and hypoxemia. He required continuous BiPAP support as a result of this ICU admission was requested. The patient also had some behavioral problems that likely going to necessitate sedation. When I stopped by to see him, he had actually just been started to get some sleep. According to the nursing staff, he was really yelling and screaming earlier on. I do not have any history of nausea, vomiting, or overt aspiration. It is unclear if the patient's history given is actually reliable. He does have a remote 10+ pack-year tobacco smoking history and that really is as much of the history of presentation as I have. PAST MEDICAL HISTORY: Chronic obstructive lung disease, history of lung cancer, history of diabetes, history of gastroesophageal reflux disease, history of arthritis, history of personality disorder, history of atrial fibrillation and he has had a cataract before. PAST SURGICAL HISTORY: He has had open heart surgery in the past. MEDICATIONS: He was on at the time I stopped by to see him, according to the medication administration record included the following: Albuterol p.r.n. 2.5 mg q.4 hours, DuoNeb treatments inhaled q. 6 hours, amiodarone 200 mg p.o. b.i.d, 81 mg of baby aspirin p.o. daily, Lipitor 80 mg p.o. at bedtime, p.r.n. Dulcolax, Coreg 6.25 mg p.o. b.i.d., Plavix 75 mg p.o. daily, Cardizem 240 mg p.o. daily, Lovenox 40 mg subcutaneous daily, Pepcid 10 mg p.o. b.i.d., Amaryl 1 mg p.o. daily, p.r.n. Dilaudid, Xalatan 0.005% eye drops q.p.m. scheduled to affected eyes, Levaquin 750 mg p.o. daily, Zestril 40 mg p.o. daily, p.r.n. Ativan, metformin 500 mg p.o. b.i.d., Solu-Medrol 125 mg IV q.8 hours, Remeron 7.5 mg p.o. at bedtime, Singulair 10 mg p.o. q.p.m. as well as p.r.n. Ambien. ALLERGIES: No known drug allergies. DIET: Well-built gentleman, no significant weight loss or gain preceding few weeks to months by history. FAMILY AND SOCIAL HISTORY: custodial resident. Remote 10+ pack year tobacco smoking history. No current alcohol, tobacco, or illicit drug use or abuse. Family history otherwise unknown. REVIEW OF SYSTEMS: Difficult to obtain secondary to his mental condition since he has been here. No gross hematochezia or melena, no gross hematuria, no hematemesis, no hemoptysis, no seizure activity. PHYSICAL EXAMINATION: At initial presentation in the emergency room reveal, ITAL SIGNS: Showed first temperature I have is from this morning 97.7 at presentation, pulse rate was 119, respiratory rate was 30, short of breath, labored, accessory muscle usage, blood pressure was 195/104. Oxygen sats were 99%, inspired oxygen concentration was not recorded. HEAD, EYES, EARS, NOSE AND THROAT: Pupils were equal, round. He did have a cataract as reported. Extraocular muscle movements appeared intact. NECK: Grossly, there were no palpable lymph nodes in the supraclavicular or submandibular lymph node chains. LUNGS: Auscultation of both lung jalloh revealed significant bilateral breath sounds, prolonged expiratory phase with faint expiratory wheezing. HEART: Heart sounds 1 and 2 are heard at the time of my evaluation, regular rate and rhythm. ABDOMEN: Soft, full, bowel sounds positive, nontender. EXTREMITIES: Without overt digital clubbing, cyanosis, or pedal edema. NEUROLOGIC: He has spontaneous movement to all extremities and no new focal deficit. LABORATORY DATA: From my review are as follows: Admission white cell count 14,600, hemoglobin 9.5, hematocrit 32.5, platelets 561,000. Arterial blood gas showed a pH of 7.27, pCO2 of 59, pO2 of 104,000 and now was on 45% FiO2, BiPAP setting was not recorded. Serum sodium was 137, potassium was 6.5, chloride was 102, bicarbonate 23, BUN 17, creatinine 1.3, glucose 197. Lactic acid level within normal limits. Liver function tests essentially within normal limits. Urinalysis negative for nitrites and leukocyte esterase and appeared . Chest x-ray has been reviewed. I have also reviewed the radiologist's interpretation and I do agree with him while there is no acute process; however, increased interstitial markings, more consistent with chronic lung disease. No gross pneumothorax, no gross bony fracture. ASSESSMENT AND PLAN: We have an elderly gentleman, essentially requiring continuous BiPAP support and also with acute kidney injury and hyperkalemia, tachycardic at that time him with a rapid ventricular response and especially also with his aging consideration, best served with admission to the Intensive Care Unit. He will continuous bilevel positive air pressure ventilation therapy. We will adjust BiPAP settings to increase minute ventilation. Aspiration precautions will be maintained. Bronchodilators will be continued. We will go ahead and add long acting bronchodilators, but also taper the systemic steroid dose to 60 mg IV q.12 hours. Oxygen will be weaned to keep sats greater than or equal to about 90-92% and hopefully, he turns around pretty quickly to wear, he can be liberated from continuous BiPAP and transferred perhaps to telemetry. From a cardiovascular standpoint, the pulse rate has improved as he has begun to tolerate the BiPAP machine better. No acute indication for Cardizem drip or other IV approach. We will continue the amiodarone. Cardiology evaluation will be at the behest of the attending physician. Initial cardiac enzymes are unremarkable. From a GI and nutritional standpoint, aspiration precautions will be repeating modality of choice. Once he is liberated from continuous BiPAP, he may need a swallow evaluation before regular meals are started. He is appropriately on gastrointestinal prophylaxis. From a renal standpoint, he has received necessary intervention, serum potassium repeat is now 5.3. He is nonoliguric. Nephrology evaluation will be at the behest of the attending physician. For now, inputs and outputs will be monitored closely and electrolytes will be corrected as necessary. From an infectious disease standpoint, he has been started on empiric community-acquired pneumonia therapy that is appropriate, if he makes sputum, we will send it for cultures. Otherwise, we will very quickly deescalate anti-infective therapy based on results of clinical and microbiologic data. From a hematologic standpoint, he is on deep venous thrombosis prophylaxis. I have a rather low pretest clinical probability for venous thromboembolic disorder. He is responding to current treatment. We will follow him clinically at this point. Continue the deep venous thrombosis prophylaxis doses. From a RADIOLOGY MANAGER standpoint, the exam is grossly nonfocal. No acute indication for neuro imaging. As hypercapnia improves, he might be a little more coherent. We will follow him clinically again. From a general and hospital healthcare maintenance standpoint, he is appropriately on gastrointestinal and deep venous thrombosis prophylaxis. Flu and pneumonia vaccination will be per protocol. Thank you very much for the consult, Dr. Tan. We will follow along and make further recommendations as picture progresses/becomes clear. At this point, I have spent about 35-40 minutes of critical care time without overlap and excluding any procedural time that may be necessary. He is critically ill, requiring continuous life sustaining therapy in the form of continuous noninvasive ventilation. He is at risk for further deterioration and will be admitted to the Intensive Care Unit. JOB# [id number] OMI/DEJA
[2016-04-29] MEDS: DILAUDID IV PRN (05:50)
[2016-04-29 08:14] LABS: Hematocrit 27.5 % (35.5-45.6); Hemoglobin 8.3 gm/dl (11.8-15.2); Mean Corpuscular HGB Conc 30 % (32-34); Mean Corpuscular Volume 72 fl (84-94); Platelet Count 435 K/mm3 (140-440); Red Cell Distribution Width 19.8 % (13.2-15.2); White Blood Count 13.7 K/mm3 (4.5-11.0)
[2016-04-29 08:16] LABS: Mean Corpuscular Hemoglobin 22 pg (28-32)
[2016-04-29 08:31] LABS: Anion Gap 16 mmol/L; BUN/Creatinine Ratio 26.36; Blood Urea Nitrogen 29 mg/dL (9-20); Calcium 8.7 mg/dL (8.4-10.2); Carbon Dioxide 27 mmol/L (22-30); Chloride 103.4 mmol/L (98-107); Glucose 140 mg/dL (75-100); Potassium 4.4 mmol/L (3.6-5.0); Sodium 142 mmol/L (137-145)
--- NOTE | 2016-04-29 10:52 | Progress Note ---
Assessment and Plan - Patient Problems (1) Acute and chronic respiratory failure with hypoxia Current Visit: Yes Status: Acute Plan to address problem: - improving - taper systemic steroids - continue bronchodilators and pulmonary toilet - continue aspiration precautions - complete empiric AB's course - oxygen therapy to keep O2 Sats > 92% (2) COPD exacerbation Current Visit: Yes Status: Acute Plan to address problem: - as above (3) Atrial fibrillation with rapid ventricular response Current Visit: No Status: Acute Plan to address problem: - rate controlled - per cardiology (4) Diabetes mellitus Current Visit: No Status: Chronic Qualifiers: Diabetes mellitus type: type 2 Plan to address problem: - SSI ....re-evaluate in am & prn Subjective Date of service: 04/29/16 Principal diagnosis: Acute Hypoxemic Respiratory Failure; Acute COPD exacerbation Interval history: Seen and examined at bedside; 24 hour events reviewed; nursing and respiratory care staff consulted; no adverse overnight events reported to me; resting peacefully in bed; feels better; no acute chest pains; No N/V/F/C Objective Vital Signs - 12hr 04/28/16 04/29/16 04/29/16 23:05 03:45 04:00 Temperature 98.1 F Pulse Rate [ 66 70 Anterior Bilateral Throughout] Pulse Rate [ 80 Right] Respiratory 20 Rate Respiratory 20 20 Rate [Anterior Bilateral Throughout] Blood Pressure 132/80 [Right Arm] O2 Sat by Pulse 98 Oximetry 04/29/16 04/29/16 04/29/16 05:00 06:55 08:32 Temperature 97.8 F 97.5 F L Pulse Rate [ 85 Anterior Bilateral Throughout] Pulse Rate [ 81 62 Right] Respiratory 20 16 Rate Respiratory 18 Rate [Anterior Bilateral Throughout] Blood Pressure 129/62 110/60 [Right Arm] O2 Sat by Pulse 99 99 99 Oximetry Constitutional: no acute distress, alert Eyes: non-icteric ENT: oropharynx moist Neck: supple Effort: mildly labored Ascultation: Bilateral: diminished breath sounds, rhonchi (bases) Cardiovascular: regular rate and rhythm Gastrointestinal: normoactive bowel sounds, soft, non-tender, non-distended Integumentary: normal Extremities: no cyanosis, pulses normal, no ischemia or petechiae Neurologic: non-focal exam (grossly), pupils equal and round Psychiatric: other (dementia element) CBC and BMP: 04/29/16 07:18 04/29/16 07:18 ABG, PT/INR, D-dimer: ABG POC ABG pH 7.455 (7.35-7.45) H 04/28/16 11:44 POC ABG pCO2 40.0 (35-45) 04/28/16 11:44 POC ABG pO2 106 (80-105) H 04/28/16 11:44 POC ABG HCO3 28.1 04/28/16 11:44 POC ABG Total CO2 29 04/28/16 11:44 POC ABG O2 Sat 98 04/28/16 11:44 Abnormal lab findings: Abnormal Labs 04/28/16 04/28/16 04/28/16 06:26 06:26 11:44 WBC Hgb 8.9 L Hct 29.5 L MCV 74 L MCH 22 L MCHC 30 L RDW 20.3 H Plt Count 449 H Lymph % (Auto) 11.0 L Lymph # 1.0 L Seg Neutrophils % 87.0 H Seg Neutrophils # 8.1 H POC ABG pH 7.455 H POC ABG pO2 106 H Potassium 5.3 H BUN 26 H Glucose 130 H POC Glucose Albumin 3.3 L 04/28/16 04/29/16 04/29/16 17:47 07:18 07:18 WBC 13.7 H Hgb 8.3 L Hct 27.5 L MCV 72 L MCH 22 L MCHC 30 L RDW 19.8 H Plt Count Lymph % (Auto) Lymph # Seg Neutrophils % Seg Neutrophils # POC ABG pH POC ABG pO2 Potassium BUN 29 H Glucose 140 H POC Glucose 177 H Albumin Chest x-ray: image reviewed
[2016-04-29 11:17] LABS: Basophils % (Manual) 0 % (0.0-1.8); Blastocytes % (Manual) 0 %; Eosinophils % (Manual) 0 % (0.0-4.3)
[2016-04-29 11:18] LABS: Anisocytosis 1+; Diff Status Complete; Poikilocytosis Few
[2016-04-29] MEDS: PEPCID PO SCH ×2 (12:03→23:10)
[2016-04-29] MEDS: GLUCOPHAGE XR PO SCH ×2 (12:03→23:10)
[2016-04-29] MEDS: PLAVIX PO SCH (12:03)
[2016-04-29] MEDS: CARDIZEM CD PO SCH (12:03)
[2016-04-29] MEDS: BABY ASPIRIN PO SCH (12:04)
[2016-04-29] MEDS: CORDARONE PO SCH ×2 (12:04→23:12)
[2016-04-29] MEDS: COREG PO SCH ×2 (12:04→23:26)
[2016-04-29] MEDS: ZESTRIL PO SCH (12:04)
[2016-04-29] MEDS: AMARYL PO SCH (12:04)
[2016-04-29] MEDS: LOVENOX SUB-Q SCH (12:04)
[2016-04-29] MEDS: LEVAQUIN PO SCH (17:35)
[2016-04-29] MEDS: SINGULAIR PO SCH (17:35)
[2016-04-29] MEDS: XALATAN 0.005% OU SCH (17:36)
[2016-04-29] MEDS: REMERON PO SCH (23:11)
[2016-04-30] MEDS: DUONEB 0.5 MG-3 MG/3 ML SOLN IH SCH ×4 (02:52→20:50)
--- NOTE | 2016-04-30 08:10 | Progress Note ---
Assessment and Plan Assessment and plan: Acute hypoxic/hypercapnic respiratory failure. - Continue BiPAP as needed. - Pulmonary consult appreciated Acute COPD exacerbation - Continue aggressive nebulizer treatment, IV antibiotics and IV Solu-Medrol. Atrial fibrillation. - Continue amiodarone. Hypertension. - Continue Coreg, diltiazem and lisinopril. Hyperlipidemia. - Continue Lipitor. Personality disorder. - Continue Risperdal and Ativan. History Interval history: Patient still have mild shortness of breath. Hospitalist Physical - Physical exam Narrative exam: Not in cardiopulmonary distress. The patient appeared well nourished and normally developed. Vital signs as documented. Head exam is unremarkable. No scleral icterus . Neck is without jugular venous distension, thyromegaly, or carotid bruits. Lungs positive for wheezing. Cardiac exam reveals regular rate and Rhythm. First and second heart sounds normal. No murmurs, rubs or gallops. Abdominal exam reveals normal bowel sounds, no masses, no organomegaly and no aortic enlargement. Extremities are nonedematous and both femoral and pedal pulses are normal. EARTH SCIENCE LABORATORY TECHNICIAN: Alert and oriented 3. No focal weakness. - Constitutional Vitals: Temp Pulse Resp BP Pulse Ox 98.6 F 52 L 20 120/58 96 04/30/16 04:00 04/30/16 04:00 04/30/16 04:00 04/30/16 04:00 04/30/16 04:00 General appearance: Present: no acute distress, well-nourished Results - Labs CBC & Chem 7: 04/29/16 07:18 04/29/16 07:18 Labs: Laboratory Last Values WBC 13.7 K/mm3 (4.5-11.0) H 04/29/16 07:18 RBC 3.80 M/mm3 (3.65-5.03) 04/29/16 07:18 Hgb 8.3 gm/dl (11.8-15.2) L 04/29/16 07:18 Hct 27.5 % (35.5-45.6) L 04/29/16 07:18 MCV 72 fl (84-94) L 04/29/16 07:18 MCH 22 pg (28-32) L 04/29/16 07:18 MCHC 30 % (32-34) L 04/29/16 07:18 RDW 19.8 % (13.2-15.2) H 04/29/16 07:18 Plt Count 435 K/mm3 (140-440) 04/29/16 07:18 Lymph % (Auto) 11.0 % (13.4-35.0) L 04/28/16 06:26 [place] % (Auto) 1.7 % (0.0-7.3) 04/28/16 06:26 Eos % (Auto) 0.0 % (0.0-4.3) 04/28/16 06:26 Baso % (Auto) 0.3 % (0.0-1.8) 04/28/16 06:26 Lymph # 1.0 K/mm3 (1.2-5.4) L 04/28/16 06:26 Hancock # 0.2 K/mm3 (0.0-0.8) 04/28/16 06:26 Eos # 0.0 K/mm3 (0.0-0.4) 04/28/16 06:26 Baso # 0.0 K/mm3 (0.0-0.1) 04/28/16 06:26 Add Manual Diff Complete 04/29/16 07:18 Total Counted 100 04/29/16 07:18 Seg Neutrophils % Freelance Programmer/App Developer 04/29/16 07:18 Seg Neuts % (Manual) 92.0 % (40.0-70.0) H 04/29/16 07:18 Band Neutrophils % 3.0 % 04/29/16 07:18 Lymphocytes % (Manual) 4.0 % (13.4-35.0) L 04/29/16 07:18 Reactive Lymphs % (Man) 0 % 04/29/16 07:18 Monocytes % (Manual) 1.0 % (0.0-7.3) 04/29/16 07:18 Eosinophils % (Manual) 0 % (0.0-4.3) 04/29/16 07:18 Basophils % (Manual) 0 % (0.0-1.8) 04/29/16 07:18 Metamyelocytes % 0 % 04/29/16 07:18 Myelocytes % 0 % 04/29/16 07:18 Promyelocytes % 0 % 04/29/16 07:18 Blast Cells % 0 % 04/29/16 07:18 Nucleated RBC % Not Reportable 04/29/16 07:18 Seg Neutrophils # 8.1 K/mm3 (1.8-7.7) H 04/28/16 06:26 Seg Neutrophils # Man 12.6 K/mm3 (1.8-7.7) H 04/29/16 07:18 Band Neutrophils # 0.4 K/mm3 04/29/16 07:18 Lymphocytes # (Manual) 0.5 K/mm3 (1.2-5.4) L 04/29/16 07:18 Abs React Lymphs (Man) 0.0 K/mm3 04/29/16 07:18 Monocytes # (Manual) 0.1 K/mm3 (0.0-0.8) 04/29/16 07:18 Eosinophils # (Manual) 0.0 K/mm3 (0.0-0.4) 04/29/16 07:18 Basophils # (Manual) 0.0 K/mm3 (0.0-0.1) 04/29/16 07:18 Metamyelocytes # 0.0 K/mm3 04/29/16 07:18 Myelocytes # 0.0 K/mm3 04/29/16 07:18 Promyelocytes # 0.0 K/mm3 04/29/16 07:18 Blast Cells # 0.0 K/mm3 04/29/16 07:18 WBC Morphology Not Reportable 04/29/16 07:18 Hypersegmented Neuts Not Reportable 04/29/16 07:18 Hyposegmented Neuts Not Reportable 04/29/16 07:18 Hypogranular Neuts Not Reportable 04/29/16 07:18 Smudge Cells Not Reportable 04/29/16 07:18 Toxic Granulation Not Reportable 04/29/16 07:18 Toxic Vacuolation Not Reportable 04/29/16 07:18 Dohle Bodies Not Reportable 04/29/16 07:18 Pelger-Huet Anomaly Not Reportable 04/29/16 07:18 Jose L Rods Not Reportable 04/29/16 07:18 Platelet Estimate Not Reportable 04/29/16 07:18 Clumped Platelets Not Reportable 04/29/16 07:18 Plt Clumps, EDTA Not Reportable 04/29/16 07:18 Large Platelets Not Reportable 04/29/16 07:18 Giant Platelets Not Reportable 04/29/16 07:18 Platelet Satelliting Not Reportable 04/29/16 07:18 Plt Morphology Comment Not Reportable 04/29/16 07:18 RBC Morphology Not Reportable 04/29/16 07:18 Dimorphic RBCs Not Reportable 04/29/16 07:18 Polychromasia Not Reportable 04/29/16 07:18 Hypochromasia Not Reportable 04/29/16 07:18 Poikilocytosis Few 04/29/16 07:18 Anisocytosis 1+ 04/29/16 07:18 Microcytosis Not Reportable 04/29/16 07:18 Macrocytosis Not Reportable 04/29/16 07:18 Spherocytes Not Reportable 04/29/16 07:18 Pappenheimer Bodies Not Reportable 04/29/16 07:18 Sickle Cells Not Reportable 04/29/16 07:18 Target Cells Not Reportable 04/29/16 07:18 Tear Drop Cells Not Reportable 04/29/16 07:18 Ovalocytes Not Reportable 04/29/16 07:18 Helmet Cells Not Reportable 04/29/16 07:18 Wade-Herrick Bodies Not Reportable 04/29/16 07:18 [place] Rings Not Reportable 04/29/16 07:18 Ball Ground Cells Not Reportable 04/29/16 07:18 Bite Cells Not Reportable 04/29/16 07:18 Crenated Cell Not Reportable 04/29/16 07:18 Elliptocytes Not Reportable 04/29/16 07:18 Acanthocytes (Spur) Not Reportable 04/29/16 07:18 Rouleaux Not Reportable 04/29/16 07:18 Hemoglobin C Crystals Not Reportable 04/29/16 07:18 Schistocytes Not Reportable 04/29/16 07:18 Malaria parasites Not Reportable 04/29/16 07:18 Juan R Bodies Not Reportable 04/29/16 07:18 Hem Pathologist Commnt No 04/29/16 07:18 POC ABG pH 7.455 (7.35-7.45) H 04/28/16 11:44 POC ABG pCO2 40.0 (35-45) 04/28/16 11:44 POC ABG pO2 106 (80-105) H 04/28/16 11:44 POC ABG HCO3 28.1 04/28/16 11:44 POC ABG Total CO2 29 04/28/16 11:44 POC ABG O2 Sat 98 04/28/16 11:44 POC ABG Base Excess 4 04/28/16 11:44 FiO2 35 % 04/28/16 11:44 Sodium 142 mmol/L (137-145) 04/29/16 07:18 Potassium 4.4 mmol/L (3.6-5.0) 04/29/16 07:18 Chloride 103.4 mmol/L (98-107) 04/29/16 07:18 Carbon Dioxide 27 mmol/L (22-30) 04/29/16 07:18 Anion Gap 16 mmol/L 04/29/16 07:18 BUN 29 mg/dL (9-20) H 04/29/16 07:18 Creatinine 1.1 mg/dL (0.8-1.5) 04/29/16 07:18 Estimated GFR > 60 ml/min 04/29/16 07:18 BUN/Creatinine Ratio 26.36 % 04/29/16 07:18 Glucose 140 mg/dL (75-100) H 04/29/16 07:18 POC Glucose 63 (70-105) L 04/30/16 06:37 Lactic Acid 0.8 mmol/L (0.7-2.0) 04/27/16 13:06 Calcium 8.7 mg/dL (8.4-10.2) 04/29/16 07:18 Total Bilirubin 0.9 mg/dL (0.1-1.2) 04/28/16 06:26 AST 16 units/L (5-40) 04/28/16 06:26 ALT 11 units/L (7-56) 04/28/16 06:26 Alkaline Phosphatase 102 units/L (35-129) 04/28/16 06:26 Troponin T 0.026 ng/mL (0.00-0.029) 04/27/16 13:06 NT-Pro-B Natriuret Pep 818.3 pg/mL (0-900) 04/27/16 13:06 Total Protein 7.0 g/dL (6.3-8.2) 04/28/16 06:26 Albumin 3.3 g/dL (3.9-5) L 04/28/16 06:26 Albumin/Globulin Ratio 0.9 % 04/28/16 06:26 Urine Color Yellow (Yellow) 04/27/16 14:00 Urine Turbidity Slightly-cloudy (Clear) 04/27/16 14:00 Urine pH 5.0 (5.0-7.0) 04/27/16 14:00 Ur Specific Justin 1.019 (1.003-1.030) 04/27/16 14:00 Urine Protein 100 mg/dl mg/dL (Negative) 04/27/16 14:00 Urine Glucose (UA) Neg mg/dL (Negative) 04/27/16 14:00 Urine Ketones Neg mg/dL (Negative) 04/27/16 14:00 Urine Blood Neg (Negative) 04/27/16 14:00 Urine Nitrite Neg (Negative) 04/27/16 14:00 Urine Bilirubin Neg (Negative) 04/27/16 14:00 Urine Urobilinogen < 2.0 mg/dL (<2.0) 04/27/16 14:00 Ur Leukocyte Esterase Neg (Negative) 04/27/16 14:00 Urine WBC (Auto) 1.0 /HPF (0.0-6.0) 04/27/16 14:00 Urine RBC (Auto) 1.0 /HPF (0.0-6.0) 04/27/16 14:00 Urine Bacteria (Auto) 1+ /HPF (Negative) 04/27/16 14:00 Hyaline Casts 1 /LPF 04/27/16 14:00 Urine Mucus Few /HPF 04/27/16 14:00
[2016-04-30] MEDS: AMARYL PO SCH (08:18)
[2016-04-30] MEDS: CORDARONE PO SCH ×3 (09:03→21:50)
[2016-04-30] MEDS: BABY ASPIRIN PO SCH (09:04)
[2016-04-30] MEDS: COREG PO SCH ×3 (11:17→21:50)
[2016-04-30] MEDS: CARDIZEM CD PO SCH (11:17)
[2016-04-30] MEDS: GLUCOPHAGE XR PO SCH ×3 (11:17→21:50)
[2016-04-30] MEDS: LOVENOX SUB-Q SCH (11:19)
[2016-04-30] MEDS: PEPCID PO SCH ×3 (11:19→21:50)
[2016-04-30] MEDS: PLAVIX PO SCH (11:20)
[2016-04-30] MEDS: ZESTRIL PO SCH (11:21)
--- NOTE | 2016-04-30 12:56 | Progress Note ---
Assessment and Plan - Patient Problems (1) Acute and chronic respiratory failure with hypoxia Current Visit: Yes Status: Acute Plan to address problem: - improving - tapering systemic steroids - continue bronchodilators and pulmonary toilet - continue aspiration precautions - complete empiric AB's course - oxygen therapy to keep O2 Sats > 92% - prn BIPAP (2) COPD exacerbation Current Visit: Yes Status: Acute Plan to address problem: - as above (3) Atrial fibrillation with rapid ventricular response Current Visit: No Status: Acute Plan to address problem: - rate controlled - per cardiology - on amiodarone (4) Diabetes mellitus Current Visit: No Status: Chronic Qualifiers: Diabetes mellitus type: type 2 Plan to address problem: - SSI ....re-evaluate in am & prn Subjective Date of service: 04/30/16 Principal diagnosis: Acute Hypoxemic Respiratory Failure; Acute COPD exacerbation Interval history: Seen and examined at bedside; 24 hour events reviewed; nursing and respiratory care staff consulted; no adverse overnight events reported to me; restinmg peacefully; doing better; less agitated Objective Vital Signs - 12hr 04/30/16 04/30/16 04/30/16 02:52 04:00 09:26 Temperature 98.6 F Pulse Rate [ 60 55 L Anterior Bilateral Throughout] Pulse Rate [ 52 L Right] Respiratory 20 Rate Respiratory 16 20 Rate [Anterior Bilateral Throughout] Blood Pressure 120/58 [Right Arm] O2 Sat by Pulse 96 Oximetry 04/30/16 04/30/16 09:29 09:43 Temperature Pulse Rate [ 58 L Anterior Bilateral Throughout] Pulse Rate [ Right] Respiratory Rate Respiratory 20 Rate [Anterior Bilateral Throughout] Blood Pressure [Right Arm] O2 Sat by Pulse 95 Oximetry Constitutional: no acute distress, alert Eyes: non-icteric ENT: oropharynx moist Neck: supple Effort: mildly labored Ascultation: Bilateral: diminished breath sounds, rhonchi (bases) Cardiovascular: regular rate and rhythm Gastrointestinal: normoactive bowel sounds, soft, non-tender, non-distended Integumentary: normal Extremities: no cyanosis, pulses normal, no ischemia or petechiae Neurologic: non-focal exam (grossly), pupils equal and round Psychiatric: other (dementia element) CBC and BMP: 05/02/16 07:36 05/03/16 18:40 ABG, PT/INR, D-dimer: ABG POC ABG pH 7.455 (7.35-7.45) H 04/28/16 11:44 POC ABG pCO2 40.0 (35-45) 04/28/16 11:44 POC ABG pO2 106 (80-105) H 04/28/16 11:44 POC ABG HCO3 28.1 04/28/16 11:44 POC ABG Total CO2 29 04/28/16 11:44 POC ABG O2 Sat 98 04/28/16 11:44 Abnormal lab findings: Abnormal Labs 04/28/16 04/28/16 04/28/16 06:26 06:26 11:44 WBC Hgb 8.9 L Hct 29.5 L MCV 74 L MCH 22 L MCHC 30 L RDW 20.3 H Plt Count 449 H Lymph % (Auto) 11.0 L Lymph # 1.0 L Seg Neutrophils % 87.0 H Seg Neuts % (Manual) Lymphocytes % (Manual) Seg Neutrophils # 8.1 H Seg Neutrophils # Man Lymphocytes # (Manual) POC ABG pH 7.455 H POC ABG pO2 106 H Potassium 5.3 H BUN 26 H Glucose 130 H POC Glucose Albumin 3.3 L 04/28/16 04/29/16 04/29/16 17:47 07:18 07:18 WBC 13.7 H Hgb 8.3 L Hct 27.5 L MCV 72 L MCH 22 L MCHC 30 L RDW 19.8 H Plt Count Lymph % (Auto) Lymph # Seg Neutrophils % Seg Neuts % (Manual) 92.0 H Lymphocytes % (Manual) 4.0 L Seg Neutrophils # Seg Neutrophils # Man 12.6 H Lymphocytes # (Manual) 0.5 L POC ABG pH POC ABG pO2 Potassium BUN 29 H Glucose 140 H POC Glucose 177 H Albumin 04/30/16 06:37 WBC Hgb Hct MCV MCH MCHC RDW Plt Count Lymph % (Auto) Lymph # Seg Neutrophils % Seg Neuts % (Manual) Lymphocytes % (Manual) Seg Neutrophils # Seg Neutrophils # Man Lymphocytes # (Manual) POC ABG pH POC ABG pO2 Potassium BUN Glucose POC Glucose 63 L Albumin
[2016-04-30] MEDS ORDERED: ATIVAN IM ONE ×2 (14:30)
--- NOTE | 2016-04-30 16:05 | Fluoroscopy Report ---
MODIFIED BARIUM SWALLOW INDICATION: Coughing with fluids. COMPARISON: None similar. FINDINGS: Fluoroscopy provided by radiologist for speech therapist to assess the swallowing mechanism. Food items of various consistencies given. Penetration noted. Osteopenia, edentulous jaw and slight reversal of usual cervical lordosis also seen. Cervical spine osteophytosis, most prominent about C4 anteriorly. IMPRESSION: Successful modified barium swallow. Please refer to detailed report from speech pathologist. Thank you for the opportunity to participate in this patient's care.
[2016-04-30] MEDS: LEVAQUIN PO SCH (18:48)
[2016-04-30] MEDS: XALATAN 0.005% OU SCH (18:49)
[2016-04-30] MEDS: SINGULAIR PO SCH (18:49)
[2016-04-30] MEDS: ATIVAN PO PRN (20:47)
[2016-04-30] MEDS: REMERON PO SCH ×2 (21:10→21:50)
[2016-05-01] MEDS: DUONEB 0.5 MG-3 MG/3 ML SOLN IH SCH ×4 (01:31→19:57)
[2016-05-01] MEDS ORDERED: ATIVAN IV ONE (04:39)
--- NOTE | 2016-05-01 08:02 | Progress Note ---
Assessment and Plan Assessment and plan: Acute hypoxic/hypercapnic respiratory failure. - Continue BiPAP as needed. - On breathing treatment - Empiric antibiotic treatment - Pulmonary consult appreciated Acute COPD exacerbation - Continue aggressive nebulizer treatment, IV antibiotics and IV Solu-Medrol. Atrial fibrillation. - Continue amiodarone. - Continue beta blockers Hypertension. - Continue Coreg, diltiazem and lisinopril. Hyperlipidemia. - Continue Lipitor. Personality disorder/ agitation - Continue Risperdal and Ativan. Disposition Plan: continue inpatient care History Interval history: Patient was agressive and combative overnight. Refused his medications. Hospitalist Physical - Physical exam Narrative exam: In mild distres The patient appeared well nourished and normally developed. Vital signs as documented. Head exam is unremarkable. No scleral icterus . Neck is without jugular venous distension, thyromegaly, or carotid bruits. Lungs positive for wheezing. Cardiac exam reveals regular rate and Rhythm. First and second heart sounds normal. No murmurs, rubs or gallops. Abdominal exam reveals normal bowel sounds, no masses, no organomegaly and no aortic enlargement. Extremities are nonedematous and both femoral and pedal pulses are normal. REAL ESTATE VALUER: Alert and oriented Psych : Patient is aggressive and combative - Constitutional Vitals: Temp Pulse Resp BP Pulse Ox 97.6 F 72 20 153/67 100 04/30/16 23:22 04/30/16 23:22 04/30/16 23:22 04/30/16 23:22 04/30/16 23:22 General appearance: Present: no acute distress, well-nourished Results - Labs CBC & Chem 7: 04/29/16 07:18 04/29/16 07:18 Labs: Laboratory Last Values WBC 13.7 K/mm3 (4.5-11.0) H 04/29/16 07:18 RBC 3.80 M/mm3 (3.65-5.03) 04/29/16 07:18 Hgb 8.3 gm/dl (11.8-15.2) L 04/29/16 07:18 Hct 27.5 % (35.5-45.6) L 04/29/16 07:18 MCV 72 fl (84-94) L 04/29/16 07:18 MCH 22 pg (28-32) L 04/29/16 07:18 MCHC 30 % (32-34) L 04/29/16 07:18 RDW 19.8 % (13.2-15.2) H 04/29/16 07:18 Plt Count 435 K/mm3 (140-440) 04/29/16 07:18 Lymph % (Auto) 11.0 % (13.4-35.0) L 04/28/16 06:26 [place] % (Auto) 1.7 % (0.0-7.3) 04/28/16 06:26 Eos % (Auto) 0.0 % (0.0-4.3) 04/28/16 06:26 Baso % (Auto) 0.3 % (0.0-1.8) 04/28/16 06:26 Lymph # 1.0 K/mm3 (1.2-5.4) L 04/28/16 06:26 [place] # 0.2 K/mm3 (0.0-0.8) 04/28/16 06:26 Eos # 0.0 K/mm3 (0.0-0.4) 04/28/16 06:26 Baso # 0.0 K/mm3 (0.0-0.1) 04/28/16 06:26 Add Manual Diff Complete 04/29/16 07:18 Total Counted 100 04/29/16 07:18 Seg Neutrophils % Land Survey Technician 04/29/16 07:18 Seg Neuts % (Manual) 92.0 % (40.0-70.0) H 04/29/16 07:18 Band Neutrophils % 3.0 % 04/29/16 07:18 Lymphocytes % (Manual) 4.0 % (13.4-35.0) L 04/29/16 07:18 Reactive Lymphs % (Man) 0 % 04/29/16 07:18 Monocytes % (Manual) 1.0 % (0.0-7.3) 04/29/16 07:18 Eosinophils % (Manual) 0 % (0.0-4.3) 04/29/16 07:18 Basophils % (Manual) 0 % (0.0-1.8) 04/29/16 07:18 Metamyelocytes % 0 % 04/29/16 07:18 Myelocytes % 0 % 04/29/16 07:18 Promyelocytes % 0 % 04/29/16 07:18 Blast Cells % 0 % 04/29/16 07:18 Nucleated RBC % Not Reportable 04/29/16 07:18 Seg Neutrophils # 8.1 K/mm3 (1.8-7.7) H 04/28/16 06:26 Seg Neutrophils # Man 12.6 K/mm3 (1.8-7.7) H 04/29/16 07:18 Band Neutrophils # 0.4 K/mm3 04/29/16 07:18 Lymphocytes # (Manual) 0.5 K/mm3 (1.2-5.4) L 04/29/16 07:18 Abs React Lymphs (Man) 0.0 K/mm3 04/29/16 07:18 Monocytes # (Manual) 0.1 K/mm3 (0.0-0.8) 04/29/16 07:18 Eosinophils # (Manual) 0.0 K/mm3 (0.0-0.4) 04/29/16 07:18 Basophils # (Manual) 0.0 K/mm3 (0.0-0.1) 04/29/16 07:18 Metamyelocytes # 0.0 K/mm3 04/29/16 07:18 Myelocytes # 0.0 K/mm3 04/29/16 07:18 Promyelocytes # 0.0 K/mm3 04/29/16 07:18 Blast Cells # 0.0 K/mm3 04/29/16 07:18 WBC Morphology Not Reportable 04/29/16 07:18 Hypersegmented Neuts Not Reportable 04/29/16 07:18 Hyposegmented Neuts Not Reportable 04/29/16 07:18 Hypogranular Neuts Not Reportable 04/29/16 07:18 Smudge Cells Not Reportable 04/29/16 07:18 Toxic Granulation Not Reportable 04/29/16 07:18 Toxic Vacuolation Not Reportable 04/29/16 07:18 Dohle Bodies Not Reportable 04/29/16 07:18 Pelger-Huet Anomaly Not Reportable 04/29/16 07:18 Jose L Rods Not Reportable 04/29/16 07:18 Platelet Estimate Not Reportable 04/29/16 07:18 Clumped Platelets Not Reportable 04/29/16 07:18 Plt Clumps, EDTA Not Reportable 04/29/16 07:18 Large Platelets Not Reportable 04/29/16 07:18 Giant Platelets Not Reportable 04/29/16 07:18 Platelet Satelliting Not Reportable 04/29/16 07:18 Plt Morphology Comment Not Reportable 04/29/16 07:18 RBC Morphology Not Reportable 04/29/16 07:18 Dimorphic RBCs Not Reportable 04/29/16 07:18 Polychromasia Not Reportable 04/29/16 07:18 Hypochromasia Not Reportable 04/29/16 07:18 Poikilocytosis Few 04/29/16 07:18 Anisocytosis 1+ 04/29/16 07:18 Microcytosis Not Reportable 04/29/16 07:18 Macrocytosis Not Reportable 04/29/16 07:18 Spherocytes Not Reportable 04/29/16 07:18 Pappenheimer Bodies Not Reportable 04/29/16 07:18 Sickle Cells Not Reportable 04/29/16 07:18 Target Cells Not Reportable 04/29/16 07:18 Tear Drop Cells Not Reportable 04/29/16 07:18 Ovalocytes Not Reportable 04/29/16 07:18 Helmet Cells Not Reportable 04/29/16 07:18 Wade-[place]ox Bodies Not Reportable 04/29/16 07:18 Mobile Rings Not Reportable 04/29/16 07:18 Cady Cells Not Reportable 04/29/16 07:18 Bite Cells Not Reportable 04/29/16 07:18 Crenated Cell Not Reportable 04/29/16 07:18 Elliptocytes Not Reportable 04/29/16 07:18 Acanthocytes (Spur) Not Reportable 04/29/16 07:18 Rouleaux Not Reportable 04/29/16 07:18 Hemoglobin C Crystals Not Reportable 04/29/16 07:18 Schistocytes Not Reportable 04/29/16 07:18 Malaria parasites Not Reportable 04/29/16 07:18 Juan R Bodies Not Reportable 04/29/16 07:18 Hem Pathologist Commnt No 04/29/16 07:18 POC ABG pH 7.455 (7.35-7.45) H 04/28/16 11:44 POC ABG pCO2 40.0 (35-45) 04/28/16 11:44 POC ABG pO2 106 (80-105) H 04/28/16 11:44 POC ABG HCO3 28.1 04/28/16 11:44 POC ABG Total CO2 29 04/28/16 11:44 POC ABG O2 Sat 98 04/28/16 11:44 POC ABG Base Excess 4 04/28/16 11:44 FiO2 35 % 04/28/16 11:44 Sodium 142 mmol/L (137-145) 04/29/16 07:18 Potassium 4.4 mmol/L (3.6-5.0) 04/29/16 07:18 Chloride 103.4 mmol/L (98-107) 04/29/16 07:18 Carbon Dioxide 27 mmol/L (22-30) 04/29/16 07:18 Anion Gap 16 mmol/L 04/29/16 07:18 BUN 29 mg/dL (9-20) H 04/29/16 07:18 Creatinine 1.1 mg/dL (0.8-1.5) 04/29/16 07:18 Estimated GFR > 60 ml/min 04/29/16 07:18 BUN/Creatinine Ratio 26.36 % 04/29/16 07:18 Glucose 140 mg/dL (75-100) H 04/29/16 07:18 POC Glucose 86 (70-105) 04/30/16 21:20 Lactic Acid 0.8 mmol/L (0.7-2.0) 04/27/16 13:06 Calcium 8.7 mg/dL (8.4-10.2) 04/29/16 07:18 Total Bilirubin 0.9 mg/dL (0.1-1.2) 04/28/16 06:26 AST 16 units/L (5-40) 04/28/16 06:26 ALT 11 units/L (7-56) 04/28/16 06:26 Alkaline Phosphatase 102 units/L (35-129) 04/28/16 06:26 Troponin T 0.026 ng/mL (0.00-0.029) 04/27/16 13:06 NT-Pro-B Natriuret Pep 818.3 pg/mL (0-900) 04/27/16 13:06 Total Protein 7.0 g/dL (6.3-8.2) 04/28/16 06:26 Albumin 3.3 g/dL (3.9-5) L 04/28/16 06:26 Albumin/Globulin Ratio 0.9 % 04/28/16 06:26 Urine Color Yellow (Yellow) 04/27/16 14:00 Urine Turbidity Slightly-cloudy (Clear) 04/27/16 14:00 Urine pH 5.0 (5.0-7.0) 04/27/16 14:00 Ur Specific [place] 1.019 (1.003-1.030) 04/27/16 14:00 Urine Protein 100 mg/dl mg/dL (Negative) 04/27/16 14:00 Urine Glucose (UA) Neg mg/dL (Negative) 04/27/16 14:00 Urine Ketones Neg mg/dL (Negative) 04/27/16 14:00 Urine Blood Neg (Negative) 04/27/16 14:00 Urine Nitrite Neg (Negative) 04/27/16 14:00 Urine Bilirubin Neg (Negative) 04/27/16 14:00 Urine Urobilinogen < 2.0 mg/dL (<2.0) 04/27/16 14:00 Ur Leukocyte Esterase Neg (Negative) 04/27/16 14:00 Urine WBC (Auto) 1.0 /HPF (0.0-6.0) 04/27/16 14:00 Urine RBC (Auto) 1.0 /HPF (0.0-6.0) 04/27/16 14:00 Urine Bacteria (Auto) 1+ /HPF (Negative) 04/27/16 14:00 Hyaline Casts 1 /LPF 04/27/16 14:00 Urine Mucus Few /HPF 04/27/16 14:00
[2016-05-01] MEDS: AMARYL PO SCH (08:57)
[2016-05-01] MEDS: PEPCID PO SCH ×2 (11:04→21:45)
[2016-05-01] MEDS: PLAVIX PO SCH (11:04)
[2016-05-01] MEDS: GLUCOPHAGE XR PO SCH ×2 (11:05→21:45)
[2016-05-01] MEDS: CARDIZEM CD PO SCH (11:05)
[2016-05-01] MEDS: CORDARONE PO SCH ×2 (11:05→21:45)
[2016-05-01] MEDS: ZESTRIL PO SCH (11:05)
[2016-05-01] MEDS: COREG PO SCH ×2 (11:05→21:45)
[2016-05-01] MEDS: BABY ASPIRIN PO SCH (11:05)
[2016-05-01] MEDS: LOVENOX SUB-Q SCH (11:07)
[2016-05-01 12:43] LABS: Basophils % (Auto) 0.1 % (0.0-1.8); Mean Corpuscular HGB Conc 30 % (32-34); Mean Corpuscular Volume 74 fl (84-94); Platelet Count 437 K/mm3 (140-440); Red Blood Count 4.24 M/mm3 (3.65-5.03); White Blood Count 14.9 K/mm3 (4.5-11.0)
[2016-05-01 13:00] LABS: Anion Gap 16 mmol/L; Blood Urea Nitrogen 33 mg/dL (9-20); Calcium 8.9 mg/dL (8.4-10.2); Carbon Dioxide 26 mmol/L (22-30); Chloride 103.3 mmol/L (98-107); Glucose 70 mg/dL (75-100); Potassium 3.5 mmol/L (3.6-5.0); Sodium 142 mmol/L (137-145)
[2016-05-01 13:02] LABS: Hematocrit 31.2 % (35.5-45.6); Hemoglobin 9.4 gm/dl (11.8-15.2); Mean Corpuscular Hemoglobin 22 pg (28-32); Red Cell Distribution Width 20.8 % (13.2-15.2)
[2016-05-01] MEDS: D5W 1,000 ML IV SCH (13:56)
[2016-05-01] MEDS: SINGULAIR PO SCH (18:09)
[2016-05-01] MEDS: LEVAQUIN PO SCH (18:09)
[2016-05-01] MEDS: XALATAN 0.005% OU SCH (18:43)
--- NOTE | 2016-05-01 20:08 | Progress Note ---
Assessment and Plan Patient sleeping at this time on 3 litres O2. O2 satuaration 94%. Patient weak.No acute respiratory distress. - Patient Problems (1) COPD exacerbation Current Visit: Yes Status: Acute Plan to address problem: O2 supplementation. Albuterol/atrovent aerosol treatments q 6 hours. Continue I?V solumedral. (2) Acute respiratory failure with hypoxia and hypercapnia Current Visit: Yes Status: Acute Plan to address problem: O2 supplementation. Albuterol/atrovent aerosol treatments. Continue I/V solumedral. Continue S/C Lovenox. Continue famotidine. (3) Atrial fibrillation with rapid ventricular response Current Visit: No Status: Acute (4) CAD (coronary artery disease) Current Visit: No Status: Chronic Qualifiers: Coronary Disease-Associated Artery/Lesion type: [place] artery Plan to address problem: Patient S/P CABG. Management as per cardiology. (5) Diabetes mellitus Current Visit: No Status: Chronic Qualifiers: Diabetes mellitus type: type 2 Plan to address problem: Management as per primary care. Subjective Date of service: 05/01/16 Principal diagnosis: Acute Hypoxemic Respiratory Failure; Acute COPD exacerbation Interval history: Patient sleeping at this time on 3 litres O2. O2 satuaration 94%. Patient weak.No acute respiratory distress. Objective Vital Signs - 12hr 05/01/16 05/01/16 05/01/16 10:00 15:50 18:27 Temperature 98.3 F Pulse Rate 91 H Pulse Rate [ 85 Anterior Bilateral Throughout] Pulse Rate [ 77 From Monitor] Respiratory 14 Rate Respiratory 20 Rate [Anterior Bilateral Throughout] Blood Pressure 126/67 [Right Arm] O2 Sat by Pulse 98 94 Oximetry 05/01/16 05/01/16 05/01/16 18:37 19:57 20:01 Temperature Pulse Rate Pulse Rate [ 88 60 Anterior Bilateral Throughout] Pulse Rate [ From Monitor] Respiratory Rate Respiratory 20 20 Rate [Anterior Bilateral Throughout] Blood Pressure [Right Arm] O2 Sat by Pulse 94 Oximetry Constitutional: no acute distress, alert Eyes: non-icteric ENT: oropharynx moist Neck: supple Effort: mildly labored Ascultation: Bilateral: diminished breath sounds, rhonchi (bases) Cardiovascular: regular rate and rhythm Gastrointestinal: normoactive bowel sounds, soft, non-tender, non-distended Integumentary: normal Extremities: no cyanosis, pulses normal, no ischemia or petechiae Neurologic: non-focal exam (grossly), pupils equal and round Psychiatric: other (dementia element) CBC and BMP: 05/01/16 11:44 05/01/16 11:44 ABG, PT/INR, D-dimer: ABG POC ABG pH 7.455 (7.35-7.45) H 04/28/16 11:44 POC ABG pCO2 40.0 (35-45) 04/28/16 11:44 POC ABG pO2 106 (80-105) H 04/28/16 11:44 POC ABG HCO3 28.1 04/28/16 11:44 POC ABG Total CO2 29 04/28/16 11:44 POC ABG O2 Sat 98 04/28/16 11:44 Abnormal lab findings: Abnormal Labs 04/28/16 04/28/16 04/28/16 06:26 06:26 11:44 WBC Hgb 8.9 L Hct 29.5 L MCV 74 L MCH 22 L MCHC 30 L RDW 20.3 H Plt Count 449 H Lymph % (Auto) 11.0 L [place] % (Auto) Lymph # 1.0 L [place] # Seg Neutrophils % 87.0 H Seg Neuts % (Manual) Lymphocytes % (Manual) Seg Neutrophils # 8.1 H Seg Neutrophils # Man Lymphocytes # (Manual) POC ABG pH 7.455 H POC ABG pO2 106 H Potassium 5.3 H BUN 26 H Glucose 130 H POC Glucose Albumin 3.3 L 04/28/16 04/29/16 04/29/16 17:47 07:18 07:18 WBC 13.7 H Hgb 8.3 L Hct 27.5 L MCV 72 L MCH 22 L MCHC 30 L RDW 19.8 H Plt Count Lymph % (Auto) [place] % (Auto) Lymph # [place] # Seg Neutrophils % Seg Neuts % (Manual) 92.0 H Lymphocytes % (Manual) 4.0 L Seg Neutrophils # Seg Neutrophils # Man 12.6 H Lymphocytes # (Manual) 0.5 L POC ABG pH POC ABG pO2 Potassium BUN 29 H Glucose 140 H POC Glucose 177 H Albumin 04/30/16 05/01/16 05/01/16 06:37 11:44 11:44 WBC 14.9 H Hgb 9.4 L Hct 31.2 L MCV 74 L MCH 22 L MCHC 30 L RDW 20.8 H Plt Count Lymph % (Auto) 6.1 L [place] % (Auto) 10.0 H Lymph # 0.9 L [place] # 1.5 H Seg Neutrophils % 83.8 H Seg Neuts % (Manual) Lymphocytes % (Manual) Seg Neutrophils # 12.5 H Seg Neutrophils # Man Lymphocytes # (Manual) POC ABG pH POC ABG pO2 Potassium 3.5 L D BUN 33 H Glucose 70 L POC Glucose 63 L Albumin Chest x-ray: report reviewed (No acute cardiopulmonary process.), image reviewed
[2016-05-01] MEDS: REMERON PO SCH (21:45)
[2016-05-01] MEDS: ATIVAN IV PRN (23:01)
[2016-05-01] MEDS: DILAUDID IV PRN (23:17)
[2016-05-02] MEDS: CARDIZEM FEEDTUBE SCH ×2 (00:50→06:46)
[2016-05-02] MEDS: DUONEB 0.5 MG-3 MG/3 ML SOLN IH SCH ×4 (01:51→20:21)
[2016-05-02] MEDS: D5W 1,000 ML IV SCH (04:40)
[2016-05-02] MEDS: ATIVAN IV PRN ×3 (06:43→17:15)
[2016-05-02 08:28] LABS: Basophils % (Auto) 0.3 % (0.0-1.8); Hematocrit 34.4 % (35.5-45.6); Hemoglobin 10.5 gm/dl (11.8-15.2); Mean Corpuscular HGB Conc 31 % (32-34); Mean Corpuscular Volume 73 fl (84-94); Platelet Count 403 K/mm3 (140-440); Red Blood Count 4.69 M/mm3 (3.65-5.03); Red Cell Distribution Width 19.9 % (13.2-15.2); White Blood Count 8.5 K/mm3 (4.5-11.0)
--- NOTE | 2016-05-02 08:29 | Progress Note ---
Assessment and Plan Assessment and plan: Acute hypoxic/hypercapnic respiratory failure. - Continue BiPAP as needed. - On breathing treatment - Empiric antibiotic treatment - Pulmonary consult appreciated Acute COPD exacerbation - Continue aggressive nebulizer treatment, IV antibiotics and IV Solu-Medrol. Atrial fibrillation. - Continue amiodarone. - Continue beta blockers - Rate is not controlled - Cardiology consulted - He had nonsustained V. tach Hypertension. - Continue Coreg, diltiazem and lisinopril. Hyperlipidemia. - Continue Lipitor. Personality disorder/ agitation - Mental health consult placed, i called and still no recommendation. - Continue Risperdal and Ativan. I have called GI for PEG tube placement and he told me he told the nurse to put Dobhoff tube but the patient refused. He is now on adivan and haldol. Disposition Plan: continued inpatient care. History Interval history: Patient was agressive and combative overnight. Refused his medications. Hospitalist Physical - Physical exam Narrative exam: In mild distres The patient appeared well nourished and normally developed. Vital signs as documented. Head exam is unremarkable. No scleral icterus . Neck is without jugular venous distension, thyromegaly, or carotid bruits. Lungs positive for wheezing. Cardiac exam reveals tachycardia. Abdominal exam reveals normal bowel sounds, no masses, no organomegaly and no aortic enlargement. Extremities are nonedematous and both femoral and pedal pulses are normal. BUSINESS DATA ANALYST: Alert and oriented Psych : Patient is aggressive and combative - Constitutional Vitals: Temp Pulse Resp BP Pulse Ox 98.3 F 67 18 168/89 95 05/02/16 00:00 05/02/16 08:00 05/02/16 08:00 05/02/16 06:46 05/02/16 08:21 General appearance: Present: no acute distress, well-nourished Results - Labs CBC & Chem 7: 05/02/16 07:36 05/02/16 07:36 Labs: Laboratory Last Values WBC 14.9 K/mm3 (4.5-11.0) H 05/01/16 11:44 RBC 4.24 M/mm3 (3.65-5.03) 05/01/16 11:44 Hgb 9.4 gm/dl (11.8-15.2) L 05/01/16 11:44 Hct 31.2 % (35.5-45.6) L 05/01/16 11:44 MCV 74 fl (84-94) L 05/01/16 11:44 MCH 22 pg (28-32) L 05/01/16 11:44 MCHC 30 % (32-34) L 05/01/16 11:44 RDW 20.8 % (13.2-15.2) H 05/01/16 11:44 Plt Count 437 K/mm3 (140-440) 05/01/16 11:44 Lymph % (Auto) 6.1 % (13.4-35.0) L 05/01/16 11:44 Emanuel % (Auto) 10.0 % (0.0-7.3) H 05/01/16 11:44 Eos % (Auto) 0.0 % (0.0-4.3) 05/01/16 11:44 Baso % (Auto) 0.1 % (0.0-1.8) 05/01/16 11:44 Lymph # 0.9 K/mm3 (1.2-5.4) L 05/01/16 11:44 Emanuel # 1.5 K/mm3 (0.0-0.8) H 05/01/16 11:44 Eos # 0.0 K/mm3 (0.0-0.4) 05/01/16 11:44 Baso # 0.0 K/mm3 (0.0-0.1) 05/01/16 11:44 Add Manual Diff Complete 04/29/16 07:18 Total Counted 100 04/29/16 07:18 Seg Neutrophils % 83.8 % (40.0-70.0) H 05/01/16 11:44 Seg Neuts % (Manual) 92.0 % (40.0-70.0) H 04/29/16 07:18 Band Neutrophils % 3.0 % 04/29/16 07:18 Lymphocytes % (Manual) 4.0 % (13.4-35.0) L 04/29/16 07:18 Reactive Lymphs % (Man) 0 % 04/29/16 07:18 Monocytes % (Manual) 1.0 % (0.0-7.3) 04/29/16 07:18 Eosinophils % (Manual) 0 % (0.0-4.3) 04/29/16 07:18 Basophils % (Manual) 0 % (0.0-1.8) 04/29/16 07:18 Metamyelocytes % 0 % 04/29/16 07:18 Myelocytes % 0 % 04/29/16 07:18 Promyelocytes % 0 % 04/29/16 07:18 Blast Cells % 0 % 04/29/16 07:18 Nucleated RBC % Not Reportable 04/29/16 07:18 Seg Neutrophils # 12.5 K/mm3 (1.8-7.7) H 05/01/16 11:44 Seg Neutrophils # Man 12.6 K/mm3 (1.8-7.7) H 04/29/16 07:18 Band Neutrophils # 0.4 K/mm3 04/29/16 07:18 Lymphocytes # (Manual) 0.5 K/mm3 (1.2-5.4) L 04/29/16 07:18 Abs React Lymphs (Man) 0.0 K/mm3 04/29/16 07:18 Monocytes # (Manual) 0.1 K/mm3 (0.0-0.8) 04/29/16 07:18 Eosinophils # (Manual) 0.0 K/mm3 (0.0-0.4) 04/29/16 07:18 Basophils # (Manual) 0.0 K/mm3 (0.0-0.1) 04/29/16 07:18 Metamyelocytes # 0.0 K/mm3 04/29/16 07:18 Myelocytes # 0.0 K/mm3 04/29/16 07:18 Promyelocytes # 0.0 K/mm3 04/29/16 07:18 Blast Cells # 0.0 K/mm3 04/29/16 07:18 WBC Morphology Not Reportable 04/29/16 07:18 Hypersegmented Neuts Not Reportable 04/29/16 07:18 Hyposegmented Neuts Not Reportable 04/29/16 07:18 Hypogranular Neuts Not Reportable 04/29/16 07:18 Smudge Cells Not Reportable 04/29/16 07:18 Toxic Granulation Not Reportable 04/29/16 07:18 Toxic Vacuolation Not Reportable 04/29/16 07:18 Dohle Bodies Not Reportable 04/29/16 07:18 Pelger-Huet Anomaly Not Reportable 04/29/16 07:18 Jose L Rods Not Reportable 04/29/16 07:18 Platelet Estimate Not Reportable 04/29/16 07:18 Clumped Platelets Not Reportable 04/29/16 07:18 Plt Clumps, EDTA Not Reportable 04/29/16 07:18 Large Platelets Not Reportable 04/29/16 07:18 Giant Platelets Not Reportable 04/29/16 07:18 Platelet Satelliting Not Reportable 04/29/16 07:18 Plt Morphology Comment Not Reportable 04/29/16 07:18 RBC Morphology Not Reportable 04/29/16 07:18 Dimorphic RBCs Not Reportable 04/29/16 07:18 Polychromasia Not Reportable 04/29/16 07:18 Hypochromasia Not Reportable 04/29/16 07:18 Poikilocytosis Few 04/29/16 07:18 Anisocytosis 1+ 04/29/16 07:18 Microcytosis Not Reportable 04/29/16 07:18 Macrocytosis Not Reportable 04/29/16 07:18 Spherocytes Not Reportable 04/29/16 07:18 Pappenheimer Bodies Not Reportable 04/29/16 07:18 Sickle Cells Not Reportable 04/29/16 07:18 Target Cells Not Reportable 04/29/16 07:18 Tear Drop Cells Not Reportable 04/29/16 07:18 Ovalocytes Not Reportable 04/29/16 07:18 Helmet Cells Not Reportable 04/29/16 07:18 [place] Bodies Not Reportable 04/29/16 07:18 [place] Rings Not Reportable 04/29/16 07:18 Cady Cells Not Reportable 04/29/16 07:18 Bite Cells Not Reportable 04/29/16 07:18 Crenated Cell Not Reportable 04/29/16 07:18 Elliptocytes Not Reportable 04/29/16 07:18 Acanthocytes (Spur) Not Reportable 04/29/16 07:18 Rouleaux Not Reportable 04/29/16 07:18 Hemoglobin C Crystals Not Reportable 04/29/16 07:18 Schistocytes Not Reportable 04/29/16 07:18 Malaria parasites Not Reportable 04/29/16 07:18 Juan R Bodies Not Reportable 04/29/16 07:18 Hem Pathologist Commnt No 04/29/16 07:18 POC ABG pH 7.455 (7.35-7.45) H 04/28/16 11:44 POC ABG pCO2 40.0 (35-45) 04/28/16 11:44 POC ABG pO2 106 (80-105) H 04/28/16 11:44 POC ABG HCO3 28.1 04/28/16 11:44 POC ABG Total CO2 29 04/28/16 11:44 POC ABG O2 Sat 98 04/28/16 11:44 POC ABG Base Excess 4 04/28/16 11:44 FiO2 35 % 04/28/16 11:44 Sodium 142 mmol/L (137-145) 05/01/16 11:44 Potassium 3.5 mmol/L (3.6-5.0) L D 05/01/16 11:44 Chloride 103.3 mmol/L (98-107) 05/01/16 11:44 Carbon Dioxide 26 mmol/L (22-30) 05/01/16 11:44 Anion Gap 16 mmol/L 05/01/16 11:44 BUN 33 mg/dL (9-20) H 05/01/16 11:44 Creatinine 1.1 mg/dL (0.8-1.5) 05/01/16 11:44 Estimated GFR > 60 ml/min 05/01/16 11:44 BUN/Creatinine Ratio 30.00 % 05/01/16 11:44 Glucose 70 mg/dL (75-100) L 05/01/16 11:44 POC Glucose 175 (70-105) H 05/02/16 05:44 Lactic Acid 0.8 mmol/L (0.7-2.0) 04/27/16 13:06 Calcium 8.9 mg/dL (8.4-10.2) 05/01/16 11:44 Total Bilirubin 0.9 mg/dL (0.1-1.2) 04/28/16 06:26 AST 16 units/L (5-40) 04/28/16 06:26 ALT 11 units/L (7-56) 04/28/16 06:26 Alkaline Phosphatase 102 units/L (35-129) 04/28/16 06:26 Troponin T 0.026 ng/mL (0.00-0.029) 04/27/16 13:06 NT-Pro-B Natriuret Pep 818.3 pg/mL (0-900) 04/27/16 13:06 Total Protein 7.0 g/dL (6.3-8.2) 04/28/16 06:26 Albumin 3.3 g/dL (3.9-5) L 04/28/16 06:26 Albumin/Globulin Ratio 0.9 % 04/28/16 06:26 Urine Color Yellow (Yellow) 04/27/16 14:00 Urine Turbidity Slightly-cloudy (Clear) 04/27/16 14:00 Urine pH 5.0 (5.0-7.0) 04/27/16 14:00 Ur Specific [place] 1.019 (1.003-1.030) 04/27/16 14:00 Urine Protein 100 mg/dl mg/dL (Negative) 04/27/16 14:00 Urine Glucose (UA) Neg mg/dL (Negative) 04/27/16 14:00 Urine Ketones Neg mg/dL (Negative) 04/27/16 14:00 Urine Blood Neg (Negative) 04/27/16 14:00 Urine Nitrite Neg (Negative) 04/27/16 14:00 Urine Bilirubin Neg (Negative) 04/27/16 14:00 Urine Urobilinogen < 2.0 mg/dL (<2.0) 04/27/16 14:00 Ur Leukocyte Esterase Neg (Negative) 04/27/16 14:00 Urine WBC (Auto) 1.0 /HPF (0.0-6.0) 04/27/16 14:00 Urine RBC (Auto) 1.0 /HPF (0.0-6.0) 04/27/16 14:00 Urine Bacteria (Auto) 1+ /HPF (Negative) 04/27/16 14:00 Hyaline Casts 1 /LPF 04/27/16 14:00 Urine Mucus Few /HPF 04/27/16 14:00
[2016-05-02 08:31] LABS: Mean Corpuscular Hemoglobin 22 pg (28-32)
[2016-05-02 09:30] LABS: Anion Gap 16 mmol/L; BUN/Creatinine Ratio 31.11; Blood Urea Nitrogen 28 mg/dL (9-20); Calcium 8.8 mg/dL (8.4-10.2); Carbon Dioxide 26 mmol/L (22-30); Chloride 99.8 mmol/L (98-107); Glucose 180 mg/dL (75-100); Potassium 4.2 mmol/L (3.6-5.0); Sodium 138 mmol/L (137-145)
--- NOTE | 2016-05-02 11:10 | Progress Note ---
Assessment and Plan - Patient Problems (1) Acute and chronic respiratory failure with hypoxia Current Visit: Yes Status: Acute Plan to address problem: - improving - tapering systemic steroids - continue bronchodilators and pulmonary toilet - continue aspiration precautions - complete empiric AB's course - oxygen therapy to keep O2 Sats > 92% - prn BIPAP (2) COPD exacerbation Current Visit: Yes Status: Acute Plan to address problem: - as above (3) Atrial fibrillation with rapid ventricular response Current Visit: No Status: Acute Plan to address problem: - rate controlled - per cardiology - on amiodarone (4) Diabetes mellitus Current Visit: No Status: Chronic Qualifiers: Diabetes mellitus type: type 2 Plan to address problem: - SSI ....re-evaluate in am & prn ....d/c planning ongoing ......may need PEG Subjective Date of service: 05/02/16 Principal diagnosis: Acute Hypoxemic Respiratory Failure; Acute COPD exacerbation Interval history: Seen and examined at bedside; 24 hour events reviewed; nursing and respiratory care staff consulted; no adverse overnight events reported to me; remains with AMS; breathing easier; no emesis or overt aspiration Objective Vital Signs - 12hr 05/02/16 05/02/16 05/02/16 00:00 01:51 02:05 Temperature 98.3 F Pulse Rate Pulse Rate [ 92 H 87 Anterior Bilateral Throughout] Pulse Rate [ Right Radial] Pulse Rate [ 98 H Right] Respiratory 20 Rate Respiratory 20 20 Rate [Anterior Bilateral Throughout] Blood Pressure Blood Pressure 138/70 [Right Arm] O2 Sat by Pulse Oximetry 05/02/16 05/02/16 05/02/16 06:46 08:00 08:21 Temperature Pulse Rate 106 H Pulse Rate [ 67 Anterior Bilateral Throughout] Pulse Rate [ Right Radial] Pulse Rate [ Right] Respiratory Rate Respiratory 18 Rate [Anterior Bilateral Throughout] Blood Pressure 168/89 Blood Pressure [Right Arm] O2 Sat by Pulse 95 Oximetry 05/02/16 08:35 Temperature 97.6 F Pulse Rate Pulse Rate [ Anterior Bilateral Throughout] Pulse Rate [ 88 Right Radial] Pulse Rate [ Right] Respiratory 24 Rate Respiratory Rate [Anterior Bilateral Throughout] Blood Pressure Blood Pressure 152/71 [Right Arm] O2 Sat by Pulse 100 Oximetry Constitutional: no acute distress, alert Eyes: non-icteric ENT: oropharynx moist Neck: supple Effort: mildly labored Ascultation: Bilateral: diminished breath sounds, rhonchi (bases) Cardiovascular: regular rate and rhythm Gastrointestinal: normoactive bowel sounds, soft, non-tender, non-distended Integumentary: normal Extremities: no cyanosis, pulses normal, no ischemia or petechiae Neurologic: non-focal exam (grossly), pupils equal and round Psychiatric: other (dementia element) CBC and BMP: 05/02/16 07:36 05/03/16 18:40 ABG, PT/INR, D-dimer: ABG POC ABG pH 7.455 (7.35-7.45) H 04/28/16 11:44 POC ABG pCO2 40.0 (35-45) 04/28/16 11:44 POC ABG pO2 106 (80-105) H 04/28/16 11:44 POC ABG HCO3 28.1 04/28/16 11:44 POC ABG Total CO2 29 04/28/16 11:44 POC ABG O2 Sat 98 04/28/16 11:44 Abnormal lab findings: Abnormal Labs 04/28/16 04/28/16 04/28/16 06:26 06:26 11:44 WBC Hgb 8.9 L Hct 29.5 L MCV 74 L MCH 22 L MCHC 30 L RDW 20.3 H Plt Count 449 H Lymph % (Auto) 11.0 L [place] % (Auto) Lymph # 1.0 L [place] # Seg Neutrophils % 87.0 H Seg Neuts % (Manual) Lymphocytes % (Manual) Seg Neutrophils # 8.1 H Seg Neutrophils # Man Lymphocytes # (Manual) POC ABG pH 7.455 H POC ABG pO2 106 H Potassium 5.3 H BUN 26 H Glucose 130 H POC Glucose Albumin 3.3 L 04/28/16 04/29/16 04/29/16 17:47 07:18 07:18 WBC 13.7 H Hgb 8.3 L Hct 27.5 L MCV 72 L MCH 22 L MCHC 30 L RDW 19.8 H Plt Count Lymph % (Auto) [place] % (Auto) Lymph # [place] # Seg Neutrophils % Seg Neuts % (Manual) 92.0 H Lymphocytes % (Manual) 4.0 L Seg Neutrophils # Seg Neutrophils # Man 12.6 H Lymphocytes # (Manual) 0.5 L POC ABG pH POC ABG pO2 Potassium BUN 29 H Glucose 140 H POC Glucose 177 H Albumin 12/29/16 12/30/16 12/30/16 06:37 11:44 11:44 WBC 14.9 H Hgb 9.4 L Hct 31.2 L MCV 74 L MCH 22 L MCHC 30 L RDW 20.8 H Plt Count Lymph % (Auto) 6.1 L [place] % (Auto) 10.0 H Lymph # 0.9 L [place] # 1.5 H Seg Neutrophils % 83.8 H Seg Neuts % (Manual) Lymphocytes % (Manual) Seg Neutrophils # 12.5 H Seg Neutrophils # Man Lymphocytes # (Manual) POC ABG pH POC ABG pO2 Potassium 3.5 L D BUN 33 H Glucose 70 L POC Glucose 63 L Albumin 05/02/16 05/02/16 05/02/16 05:44 07:36 07:36 WBC Hgb 10.5 L Hct 34.4 L MCV 73 L MCH 22 L MCHC 31 L RDW 19.9 H Plt Count Lymph % (Auto) 4.8 L [place] % (Auto) Lymph # 0.4 L [place] # Seg Neutrophils % 87.7 H Seg Neuts % (Manual) Lymphocytes % (Manual) Seg Neutrophils # Seg Neutrophils # Man Lymphocytes # (Manual) POC ABG pH POC ABG pO2 Potassium BUN 28 H Glucose 180 H POC Glucose 175 H Albumin
[2016-05-02] MEDS ORDERED: COREG PO SCH (11:28)
--- NOTE | 2016-05-02 11:28 | Consultation ---
History of Present Illness Consult date: 05/02/16 Requesting physician: COSNUELO STACK Consult reason: atrial fibrillation History of present illness: This is a 75-year-old [place] male from the assisted who was here last month for atrial flutter and anemia patient was placed on amiodarone and calcium channel blockers patient presented back for shortness of breath and COPD exaggeration placed on BiPAP patient has been having runs of nonsustained V. tach. Patient also has delirium and has been refusing all medications and is restrained. History is limited from the patient but is sitting up and denying any chest pain or shortness of breath is able lie down flat. Patient's echocardiogram done today shows severe LV dysfunction with mild aortic regurgitation and moderate left atrial enlargement patient also has been had a switch evaluation and patient is a high risk for aspiration. On review of chart there is no history of melana at this time Past History Past Medical History: atrial fib (parasymaol), COPD, hypertension, other Past Surgical History: Other (unknown) Social history: other (assisted) Family history: other (unknown) Medications and Allergies Allergies Allergy/AdvReac Type Severity Reaction Status Date / Time No Known Allergies Allergy Verified 04/27/16 20:01 Home Medications Medication Instructions Recorded Confirmed Last Taken Type Albuterol Sulfate [Proair 90 mcg IH Q12HR PRN 03/23/16 04/27/16 1 Day Ago History Respiclick] Amiodarone [Cordarone 200 MG TAB] 200 mg PO BID 03/23/16 04/27/16 1 Day Ago History Aspirin [Aspirin BABY CHEW TAB] 81 mg PO QDAY 03/23/16 04/27/16 1 Day Ago History Atorvastatin Calcium [Lipitor] 80 mg PO QHS 03/23/16 04/27/16 1 Day Ago History Bimatoprost [Lumigan 0.01%] 1 drop OP QPM 03/23/16 04/27/16 1 Day Ago History Carvedilol [Coreg] 6.25 mg PO BID 03/23/16 04/27/16 1 Day Ago History Clopidogrel [Plavix] 75 mg PO QDAY 03/23/16 04/27/16 1 Day Ago History Famotidine [Pepcid] 10 mg PO BID 03/23/16 04/27/16 1 Day Ago History Glimepiride [Amaryl] 1 mg PO QAM 03/23/16 04/27/16 1 Day Ago History Insulin Regular, Human [HumuLIN R] See Protocol SQ ACHS 03/23/16 04/27/16 1 Day Ago History Ipratropium/Albuterol Sulfate 1 ampul IH Q4HR 03/23/16 04/27/16 1 Day Ago History [Duoneb 0.5 mg-3 mg/3 ml Soln] Latanoprost 0.005% [Xalatan 0.005%] 1 drop OP QPM 03/23/16 04/27/16 1 Day Ago History Lisinopril [Zestril TAB] 40 mg PO QDAY 03/23/16 04/27/16 1 Day Ago History Metformin HCl [Glucophage Xr] 500 mg PO BID 03/23/16 04/27/16 1 Day Ago History Mirtazapine 7.5 mg PO QHS 03/23/16 04/27/16 1 Day Ago History Montelukast [Singulair] 10 mg PO QPM 03/23/16 04/27/16 1 Day Ago History Risperidone Microspheres 25 mg IM QMONTH 03/23/16 04/27/16 1 Day Ago History [RisperDAL Consta] Zolpidem [Ambien] 5 mg PO QHS PRN 03/23/16 04/27/16 1 Day Ago History traMADol [Ultram 50 MG tab] 50 mg PO Q4HR PRN 03/23/16 04/27/16 1 Day Ago History Diltiazem Cd [Cardizem CD] 240 mg PO QDAY #30 capsule 03/27/16 04/27/16 Unknown Rx LORazepam [Ativan] 1 mg PO TID PRN 04/27/16 04/27/16 Unknown History Nitroglycerin [Nitrostat] 0.4 mg SL Q5M PRN 04/27/16 04/27/16 Unknown History Active Meds: Active Medications Al Hydrox/Mg Hydrox/Simethicone (Alum-Mag Hydrox-Simeth [id number]/5ml) 30 ml PO Q4H PRN PRN Reason: Indigestion Albuterol (Proventil) 2.5 mg IH Q4HRT PRN PRN Reason: Shortness Of Breath Albuterol/Ipratropium (Duoneb 0.5 Mg-3 Mg/3 Ml Soln) 1 ampul IH Q6HRT [facility] Last Admin: 05/02/16 08:20 Dose: 1 ampul Amiodarone HCl (Cordarone) 200 mg PO BID [facility] Last Admin: 05/01/16 21:45 Dose: Not Given Aspirin (Baby Aspirin) 81 mg PO QDAY [facility] Last Admin: 05/01/16 11:05 Dose: Not Given Atorvastatin Calcium (Lipitor) 80 mg PO QHS [facility] Last Admin: 05/01/16 21:45 Dose: Not Given Bisacodyl (Dulcolax) 10 mg [place] QDAY PRN PRN Reason: constipation unrelieved by MOM Carvedilol (Coreg) 6.25 mg PO BID [facility] Last Admin: 05/01/16 21:45 Dose: Not Given Clopidogrel Bisulfate (Plavix) 75 mg PO QDAY [facility] Last Admin: 05/01/16 11:04 Dose: Not Given Diltiazem HCl (Cardizem Cd) 240 mg PO QDAY [facility] Last Admin: 05/01/16 11:05 Dose: Not Given Diltiazem HCl (Cardizem) 30 mg FEEDTUBE Q6HR [facility] Last Admin: 05/02/16 06:46 Dose: Not Given Enoxaparin Sodium (Lovenox) 40 mg SUB-Q QDAY [facility] Last Admin: 05/01/16 11:07 Dose: 40 mg Famotidine (Pepcid) 10 mg PO BID [facility] Last Admin: 05/01/16 21:45 Dose: Not Given Glimepiride (Amaryl) 1 mg PO QDDIAB [facility] Last Admin: 05/01/16 08:57 Dose: Not Given Hydromorphone HCl (Dilaudid) 0.5 mg IV Q3H PRN PRN Reason: Pain , Severe (7-10) Last Admin: 05/01/16 23:17 Dose: 0.5 mg Dextrose (D5w) 1,000 mls @ 75 mls/hr IV DIRECT [facility] Last Admin: 05/02/16 04:40 Dose: 75 mls/hr Latanoprost (Xalatan 0.005%) 1 drops OU QPM [facility] Last Admin: 05/01/16 18:43 Dose: 1 drops Lisinopril (Zestril) 40 mg PO QDAY [facility] Last Admin: 05/01/16 11:05 Dose: Not Given Lorazepam (Ativan) 1 mg PO TID PRN PRN Reason: Agitation Last Admin: 04/30/16 20:47 Dose: 1 mg Lorazepam (Ativan) 1 mg IV Q2H PRN PRN Reason: AGITATION Last Admin: 05/02/16 06:43 Dose: 1 mg Magnesium Hydroxide (Milk Of Magnesia) 30 ml PO Q4H PRN PRN Reason: Constipation Metformin HCl (Glucophage Xr) 500 mg PO BID [facility] Last Admin: 05/01/16 21:45 Dose: Not Given Methylprednisolone Sodium Succinate (Solu-Medrol) 40 mg IV BID [facility] Last Admin: 05/01/16 21:45 Dose: Not Given Mirtazapine (Remeron) 7.5 mg PO QHS [facility] Last Admin: 05/01/16 21:45 Dose: Not Given Montelukast Sodium (Singulair) 10 mg PO QPM [facility] Last Admin: 05/01/16 18:09 Dose: Not Given Zolpidem Tartrate (Ambien) 5 mg PO QHS PRN PRN Reason: Sleep Review of Systems All systems: negative (poor historian) Physical Examination Vital Signs Pulse Ox 90 04/27/16 12:38 General appearance: no acute distress, well-nourished HEENT: Positive: PERRL, Mucus Membranes Moist Neck: Positive: neck supple, trachea midline Cardiac: Positive: Reg Rate and Rhythm, S1/S2. Negative: Audible Murmur Lungs: Positive: clear to auscultation, Normal Breath Sounds Neuro: Positive: Other (deliria) Abdomen: Positive: Soft, Active Bowel Sounds. Negative: Tender, Distended Male genitourinary: Positive: normal Skin: Positive: Clear Incision: Cardiac Cath Site Musculoskeletal: No Pain, Normal Range of Motion Extremities: Present: normal. Absent: edema Results 05/02/16 07:36 05/02/16 07:36 CBC 05/01/16 05/02/16 Range/Units 11:44 07:36 WBC 14.9 H 8.5 (4.5-11.0) K/mm3 RBC 4.24 4.69 (3.65-5.03) M/mm3 Hgb 9.4 L 10.5 L (11.8-15.2) gm/dl Hct 31.2 L 34.4 L (35.5-45.6) % Plt Count 437 403 (140-440) K/mm3 Lymph # 0.9 L 0.4 L (1.2-5.4) K/mm3 [place] # 1.5 H 0.6 (0.0-0.8) K/mm3 Eos # 0.0 0.0 (0.0-0.4) K/mm3 Baso # 0.0 0.0 (0.0-0.1) K/mm3 Comprehensive Metabolic Panel 05/01/16 05/02/16 Range/Units 11:44 07:36 Sodium 142 138 (137-145) mmol/L Potassium 3.5 L D 4.2 (3.6-5.0) mmol/L Chloride 103.3 99.8 (98-107) mmol/L Carbon Dioxide 26 26 (22-30) mmol/L BUN 33 H 28 H (9-20) mg/dL Creatinine 1.1 0.9 (0.8-1.5) mg/dL Glucose 70 L 180 H (75-100) mg/dL Calcium 8.9 8.8 (8.4-10.2) mg/dL - Imaging and Cardiology Echo: report reviewed (EF 2530% with mild aortic regurgitation) EKG interpretations - Telemetry EKG Rhythm: Sinus Rhythm (sinus rhythm and had 12 non-sustained V. tach) Assessment and Plan Acute respiratory failure on BiPAP Acute systolic heart failure Acute COPD exaggeration Non-STEMI type II Nonsustained V. tach Altered mental status Hypertension Diabetes Hyperlipidemia Possible CVA Recommend: In view of inability to eat properly possible high risk for aspiration suggest Dobbhoff tube placement for heart failure medications as echo Cardizem shows EF 25 to 30 percent as patient has non sustained V. tach beta lemuel therapy along with NICHELLE inhibitors patient is evolumic. Until Dopp office placed IV troponin all check magnesium level and continue workup for delirium
--- NOTE | 2016-05-02 13:17 | Echocardiography Report ---
Transthoracic Echocardiogram Indication: ABNORMAL EKG BP: 168/89 HR: 94 Conclusions *The estimated ejection fraction is 20-25%. *Global left ventricular systolic function is severely decreased. *Mild concentric left ventricular hypertrophy is observed. *The basal inferolateral wall segment is normal. *The basal anterior, basal anterolateral, apical septal, and apical inferior wall segments are hypokinetic. *The mid anterior, mid anterolateral, apical anterior, and apical lateral wall segments are akinetic. *The basal inferior, basal inferoseptal, mid inferior, and mid inferoseptal wall segments are dyskinetic. *The right ventricular chamber size and systolic function are within normal limits. *The right ventricular chamber size and systolic function are within normal limits. *There is mild aortic regurgitation. *There is mild mitral regurgitation. *There is no evidence of tricuspid valve regurgitation. *No pulmonary hypertension is noted. *There is no evidence of pulmonic regurgitation. *No pleural effusion is present. *There is no pericardial effusion. Findings Procedure Info: The study quality is good. The study was technically limited due to the patient's inability to lay in the left lateral decubitus position. Left Ventricle: The left ventricular chamber size is normal. Mild concentric left ventricular hypertrophy is observed. Global left ventricular systolic function is severely decreased. The estimated ejection fraction is 20-25%. The basal inferolateral wall segment is normal. The basal anterior, basal anterolateral, apical septal, and apical inferior wall segments are hypokinetic. The mid anterior, mid anterolateral, apical anterior, and apical lateral wall segments are akinetic. The basal inferior, basal inferoseptal, mid inferior, and mid inferoseptal wall segments are dyskinetic. Left Atrium: The left atrium is mildly dilated. Right Ventricle: The right ventricular chamber size and systolic function are within normal limits. Right Atrium: The right atrial cavity size is normal. No pacemaker wire is visualized in the right atrium. Aortic Valve: The aortic valve is not well visualized. There is mild aortic regurgitation. There is no evidence of aortic stenosis. The aortic valve area, by peak velocities, is calculated at 3.26 cm2. Mitral Valve: The mitral valve leaflets appear normal. There is mild mitral regurgitation. There is no evidence of mitral stenosis. Tricuspid Valve: The tricuspid valve leaflets are normal. There is no evidence of tricuspid valve regurgitation. No pulmonary hypertension is noted. There is no tricuspid stenosis. Pulmonic Valve: The pulmonic valve is not well visualized. There is no evidence of pulmonic regurgitation. There is no pulmonic stenosis. Pericardium: The pericardium appears normal. There is no pericardial effusion. No pleural effusion is present. Aorta: The aortic root is not well visualized. Pulmonary Artery: The main pulmonary artery is not well visualized. Measurements Chambers MM Name Value Normal Range IVSd (MM) 1.11 cm (0.6 - 1.1) LVPWd (MM) 1.05 cm (0.6 - 1.1) IVS:LVPW ratio 1.06 ratio - LVIDd (MM) 6.27 cm (3.7 - 5.6) LVIDs (MM) 5.72 cm (2 - 2.8) LV FS (Teichholz) (MM) 8.77 % - LV FS (cube) (MM) 8.77 % - EF Teichholz (MM) 19.1 % - Ao root diameter (MM) 3.8 cm (2 - 3.7) LA dimension (AP) MM 4 cm (1.9 - 4) LA:Ao ratio (MM) 1.05 ratio - AV cusp separation (MM) 2 cm (1.5 - 2.6) Chambers 2D Name Value Normal Range IVSd (2D) 0.91 cm (0.6 - 1.1) LVPWd 1.2 cm - LVPWd (2D) 1.15 cm (0.6 - 1.1) IVS:LVPW ratio (2D) 0.79 ratio - LVIDd 5 cm - LVIDs 4.6 cm - LVIDd (2D) 5.39 cm (3.7 - 5.6) LVIDs (2D) 4.87 cm (2 - 3.8) LV FS (Teichholz) (2D) 9.65 % - LV FS (cube) (2D) 9.65 % - LV EF (2D) 18 % - EF Teichholz (2D) 21.3 % - LA dimension 4.3 cm - Ao root diameter (2D) 3.6 cm (2 - 3.7) LA dimension (AP) 2D 3.4 cm (1.9 - 4) LA:Ao ratio (2D) 0.94 ratio - Volumes/Mass Name Value Normal Range LA ESV SP 4CH (MOD) 60 ml - LV EDV SP 4CH (MOD) 260 ml - LV ESV SP 4CH (MOD) 186 ml - EF SP 4CH (MOD) 28 % - Diastolic/Systolic Function Name Value Normal Range MV E-wave Vmax 1.11 m/sec - MV deceleration time 130 msec - LV septal e' Vmax 0.04 m/sec - LV lateral e' Vmax 0.06 m/sec - LV E:e' septal ratio 26.5 ratio - LV E:e' lateral ratio 19 ratio - Aortic Valve Name Value Normal Range AV Vmax 0.95 m/sec - AV peak gradient 4 mmHg - LVOT diameter 2.1 cm - LVOT Vmax 0.9 m/sec - LVOT peak gradient 3 mmHg - ANGELINA (continuity Vmax) 3.26 cm2 - Pulmonic Valve/Qp:Qs Name Value Normal Range PV Vmax 0.61 m/sec - PV peak gradient 1 mmHg - PV acceleration time 148 msec - Wallmotion BAS Not Seen BA Hypokinetic BAL Hypokinetic SANTOSH Normal BI Dyskinetic BIS Dyskinetic MAS Not Seen MA Akinetic MAL Akinetic MIL Not Seen MA Dyskinetic MIS Dyskinetic Hypokinetic AA Akinetic AL Akinetic AI Hypokinetic APEX Hypokinetic
[2016-05-02] MEDS: BABY ASPIRIN PO SCH (14:06)
[2016-05-02] MEDS: CARDIZEM CD PO SCH (14:06)
[2016-05-02] MEDS: AMARYL PO SCH (14:06)
[2016-05-02] MEDS: CORDARONE PO SCH (14:07)
[2016-05-02] MEDS: ZESTRIL PO SCH (14:07)
[2016-05-02] MEDS: PEPCID PO SCH (14:07)
[2016-05-02] MEDS: GLUCOPHAGE XR PO SCH (14:07)
[2016-05-02] MEDS: PLAVIX PO SCH (14:07)
[2016-05-02] MEDS: LOVENOX SUB-Q SCH (15:51)
[2016-05-02] MEDS: LOPRESSOR IV SCH (17:14)
[2016-05-02] MEDS ORDERED: HALDOL IM PRN (19:59)
[2016-05-02] MEDS ORDERED: APRESOLINE IV PRN (20:01)
--- NOTE | 2016-05-02 20:08 | Gastroenterology Consultation ---
History of Present Illness - Reason for Consult Consult date: 05/02/16 evaluate for PEG tube placement Requesting physician: CONSUELO STACK - History of Present Illness Mr Bateman is a 75 yo male with multiple medical problems who was admitted for respiratory failure/COPD exacerbation. History is primarily gathered from chart review as patient unable to provide meaningful history at this time. It appears his respiratory status improved with breathing treatments and bipap. He is currently in 4 extremity restraints, and has developed changes in mental status over the last couple days. At the time of exam, he is attempting to get out of bed (reportedly security has been called twice today). He has been unable to perform swallow study due to mental status. He has refused NG tube. When discussing possible PEG placement, he states "I just want to go home". Also of note, he has a h/o CAD and is on plavix, which has been held for 3 days. Past History Past Medical History: atrial fib (parasymaol), COPD, hypertension, other Past Surgical History: Other (unknown) Social history: other (residential) Family history: other (unknown) Medications and Allergies Allergies Allergy/AdvReac Type Severity Reaction Status Date / Time No Known Allergies Allergy Verified 04/27/16 20:01 Home Medications Medication Instructions Recorded Confirmed Last Taken Type Albuterol Sulfate [Proair 90 mcg IH Q12HR PRN 03/23/16 04/27/16 1 Day Ago History Respiclick] Amiodarone [Cordarone 200 MG TAB] 200 mg PO BID 03/23/16 04/27/16 1 Day Ago History Aspirin [Aspirin BABY CHEW TAB] 81 mg PO QDAY 03/23/16 04/27/16 1 Day Ago History Atorvastatin Calcium [Lipitor] 80 mg PO QHS 03/23/16 04/27/16 1 Day Ago History Bimatoprost [Lumigan 0.01%] 1 drop OP QPM 03/23/16 04/27/16 1 Day Ago History Carvedilol [Coreg] 6.25 mg PO BID 03/23/16 04/27/16 1 Day Ago History Clopidogrel [Plavix] 75 mg PO QDAY 03/23/16 04/27/16 1 Day Ago History Famotidine [Pepcid] 10 mg PO BID 03/23/16 04/27/16 1 Day Ago History Glimepiride [Amaryl] 1 mg PO QAM 03/23/16 04/27/16 1 Day Ago History Insulin Regular, Human [HumuLIN R] See Protocol SQ ACHS 03/23/16 04/27/16 1 Day Ago History Ipratropium/Albuterol Sulfate 1 ampul IH Q4HR 03/23/16 04/27/16 1 Day Ago History [Duoneb 0.5 mg-3 mg/3 ml Soln] Latanoprost 0.005% [Xalatan 0.005%] 1 drop OP QPM 03/23/16 04/27/16 1 Day Ago History Lisinopril [Zestril TAB] 40 mg PO QDAY 03/23/16 04/27/16 1 Day Ago History Metformin HCl [Glucophage Xr] 500 mg PO BID 03/23/16 04/27/16 1 Day Ago History Mirtazapine 7.5 mg PO QHS 03/23/16 04/27/16 1 Day Ago History Montelukast [Singulair] 10 mg PO QPM 03/23/16 04/27/16 1 Day Ago History Risperidone Microspheres 25 mg IM QMONTH 03/23/16 04/27/16 1 Day Ago History [RisperDAL Consta] Zolpidem [Ambien] 5 mg PO QHS PRN 03/23/16 04/27/16 1 Day Ago History traMADol [Ultram 50 MG tab] 50 mg PO Q4HR PRN 03/23/16 04/27/16 1 Day Ago History Diltiazem Cd [Cardizem CD] 240 mg PO QDAY #30 capsule 03/27/16 04/27/16 Unknown Rx LORazepam [Ativan] 1 mg PO TID PRN 04/27/16 04/27/16 Unknown History Nitroglycerin [Nitrostat] 0.4 mg SL Q5M PRN 04/27/16 04/27/16 Unknown History Active Meds: Active Medications Al Hydrox/Mg Hydrox/Simethicone (Alum-Mag Hydrox-Simeth 768-106-30bn/5ml) 30 ml PO Q4H PRN PRN Reason: Indigestion Albuterol (Proventil) 2.5 mg IH Q4HRT PRN PRN Reason: Shortness Of Breath Albuterol/Ipratropium (Duoneb 0.5 Mg-3 Mg/3 Ml Soln) 1 ampul IH Q6HRT [facility] Last Admin: 05/02/16 14:19 Dose: 1 ampul Amiodarone HCl (Cordarone) 200 mg PO BID [facility] Last Admin: 05/02/16 14:07 Dose: Not Given Aspirin (Baby Aspirin) 81 mg PO QDAY [facility] Last Admin: 05/02/16 14:06 Dose: Not Given Atorvastatin Calcium (Lipitor) 80 mg PO QHS [facility] Last Admin: 05/01/16 21:45 Dose: Not Given Bisacodyl (Dulcolax) 10 mg RI QDAY PRN PRN Reason: constipation unrelieved by MOM Carvedilol (Coreg) 12.5 mg PO BID [facility] Clopidogrel Bisulfate (Plavix) 75 mg PO QDAY [facility] Last Admin: 05/02/16 14:07 Dose: Not Given Diltiazem HCl (Cardizem Cd) 240 mg PO QDAY [facility] Last Admin: 05/02/16 14:06 Dose: Not Given Enoxaparin Sodium (Lovenox) 40 mg SUB-Q QDAY [facility] Last Admin: 05/02/16 15:51 Dose: 40 mg Famotidine (Pepcid) 10 mg PO BID [facility] Last Admin: 05/02/16 14:07 Dose: Not Given Glimepiride (Amaryl) 1 mg PO QDDIAB [facility] Last Admin: 05/02/16 14:06 Dose: Not Given Hydromorphone HCl (Dilaudid) 0.5 mg IV Q3H PRN PRN Reason: Pain , Severe (7-10) Last Admin: 05/01/16 23:17 Dose: 0.5 mg Dextrose (D5w) 1,000 mls @ 75 mls/hr IV DIRECT [facility] Last Admin: 05/02/16 04:40 Dose: 75 mls/hr Latanoprost (Xalatan 0.005%) 1 drops OU QPM [facility] Last Admin: 05/01/16 18:43 Dose: 1 drops Lisinopril (Zestril) 40 mg PO QDAY [facility] Last Admin: 05/02/16 14:07 Dose: Not Given Lorazepam (Ativan) 1 mg PO TID PRN PRN Reason: Agitation Last Admin: 04/30/16 20:47 Dose: 1 mg Lorazepam (Ativan) 1 mg IV Q2H PRN PRN Reason: AGITATION Last Admin: 05/02/16 17:15 Dose: 1 mg Magnesium Hydroxide (Milk Of Magnesia) 30 ml PO Q4H PRN PRN Reason: Constipation Metformin HCl (Glucophage Xr) 500 mg PO BID [facility] Last Admin: 05/02/16 14:07 Dose: Not Given Methylprednisolone Sodium Succinate (Solu-Medrol) 40 mg IV BID [facility] Last Admin: 05/02/16 15:51 Dose: 40 mg Metoprolol Tartrate (Lopressor) 2.5 mg IV Q6HR [facility] Last Admin: 05/02/16 17:14 Dose: Not Given Mirtazapine (Remeron) 7.5 mg PO QHS [facility] Last Admin: 05/01/16 21:45 Dose: Not Given Montelukast Sodium (Singulair) 10 mg PO QPM [facility] Last Admin: 05/01/16 18:09 Dose: Not Given Zolpidem Tartrate (Ambien) 5 mg PO QHS PRN PRN Reason: Sleep Review of Systems - Review of Systems ROS unobtainable: due to mental status Exam - Exam Narrative Exam: Gen: chronically ill appearing male, in 4 pt restraints, attempting to get out of bed Head: nc/at Mouth: poor dentition, dry mucous membranes CV: RRR Lungs: coarse bs bilaterally, non labored Abd: soft, nd, nt, +bs Ext: 4 pt restraints, no edema Neuro: oriented x self Psych: agitated - Constitutional Vital Signs: Temp Pulse Resp BP Pulse Ox 97.9 F 110 H 20 163/95 99 05/02/16 16:00 05/02/16 16:00 05/02/16 18:16 05/02/16 16:00 05/02/16 16:00 - Labs CBC & Chem 7: 05/02/16 07:36 05/02/16 07:36 Lab Results: Laboratory Results - last 24 hr 05/02/16 05/02/16 05/02/16 05:44 07:36 07:36 WBC 8.5 RBC 4.69 Hgb 10.5 L Hct 34.4 L MCV 73 L MCH 22 L MCHC 31 L RDW 19.9 H Plt Count 403 Lymph % (Auto) 4.8 L [place] % (Auto) 7.2 Eos % (Auto) 0.0 Baso % (Auto) 0.3 Lymph # 0.4 L [place] # 0.6 Eos # 0.0 Baso # 0.0 Seg Neutrophils % 87.7 H Seg Neutrophils # 7.5 Sodium 138 Potassium 4.2 Chloride 99.8 Carbon Dioxide 26 Anion Gap 16 BUN 28 H Creatinine 0.9 Estimated GFR > 60 BUN/Creatinine Ratio 31.11 Glucose 180 H POC Glucose 175 H Calcium 8.8 05/02/16 16:08 WBC RBC Hgb Hct MCV MCH MCHC RDW Plt Count Lymph % (Auto) [place] % (Auto) Eos % (Auto) Baso % (Auto) Lymph # [place] # Eos # Baso # Seg Neutrophils % Seg Neutrophils # Sodium Potassium Chloride Carbon Dioxide Anion Gap BUN Creatinine Estimated GFR BUN/Creatinine Ratio Glucose POC Glucose 102 Calcium Assessment and Plan 75 yo male with h/o COPD, afib, CAD, and personality disorder initially presenting with respiratory failure/copd exacerbation with development of AMS during hospitalization. GI consulted for PEG tube placement since he is unable to have swallow evaluation performed due to mental status. I feel with his current new onset of AMS requiring 4 pt restraints, severe agitation, and social situation, it seems that he would be at high risk of pulling PEG tube out or other complications. He should have his swallow study performed once his AMS improves, but if this does not occur, he may need a PEG tube if he is able to have SNF/half-way rehab stay. He has been off of plavix for 3 days ( will need to be off for 5 days to have PEG placed). Will re-evaluate in 2 days and make further recommendations regarding nutrition/peg tube needs at that time. I have asked for pt to have dobhoff placed for tube feedings, but he has apparently refused this per primary physicians note.
[2016-05-02] MEDS: DILAUDID IV PRN (23:58)
[2016-05-03] MEDS: CORDARONE PO SCH ×3 (00:14→22:51)
[2016-05-03] MEDS: COREG PO SCH ×3 (00:15→22:51)
[2016-05-03] MEDS: ATIVAN IV PRN ×3 (00:15→23:07)
[2016-05-03] MEDS: PEPCID PO SCH ×3 (00:16→23:10)
[2016-05-03] MEDS: REMERON PO SCH ×2 (00:16→23:10)
[2016-05-03] MEDS: GLUCOPHAGE XR PO SCH ×3 (00:16→22:52)
[2016-05-03] MEDS: LOPRESSOR IV SCH ×7 (00:45→23:04)
[2016-05-03] MEDS: DUONEB 0.5 MG-3 MG/3 ML SOLN IH SCH ×4 (03:21→20:17)
[2016-05-03] MEDS: D5W 1,000 ML IV SCH ×2 (07:23→23:09)
[2016-05-03] MEDS: AMARYL PO SCH (08:00)
--- NOTE | 2016-05-03 09:12 | Progress Note ---
Assessment and Plan Assessment and plan: Acute hypoxic/hypercapnic respiratory failure. - Continue BiPAP as needed. - On breathing treatment - Empiric antibiotic treatment - Pulmonary consult appreciated - He refused his meds including breathing treatment Acute COPD exacerbation - Continue aggressive nebulizer treatment, IV antibiotics and IV Solu-Medrol. Atrial fibrillation. - Continue amiodarone. - Continue beta blockers - Rate is not controlled - Cardiology consulted - He had nonsustained V. tach Hypertension. - Continue Coreg, diltiazem and lisinopril (NOTTAKING) - Lepressor 5mg iv q 6 hrs Hyperlipidemia. - Continue Lipitor. Personality disorder/ agitation - Mental health consult placed, i called and still no recommendation. - Continue Risperdal and Ativan. - Haldol 5mg IV q 4 hr Nutrition and Meds - will try dobhoff today and restart his medications - GI and rtecommednd no PEG tube this time because of his agitation, said off plavix for the next 2 days and will evalaute in 2 days - Will continue his maintenance fluid History Interval history: Patient was agressive and combative overnight. Patient refused NG tube placement. Hospitalist Physical - Physical exam Narrative exam: In mild distres The patient appeared well nourished and normally developed. Vital signs as documented. Head exam is unremarkable. No scleral icterus . Neck is without jugular venous distension, thyromegaly, or carotid bruits. Lungs positive for wheezing. Cardiac exam reveals tachycardia. Abdominal exam reveals normal bowel sounds, no masses, no organomegaly and no aortic enlargement. Extremities are nonedematous and both femoral and pedal pulses are normal. CONVENTIONAL UNDERWRITER: confused. Psych : Patient is aggressive and combative - Constitutional Vitals: Temp Pulse Resp BP Pulse Ox 98.2 F 96 H 18 136/78 95 05/03/16 07:17 05/03/16 08:23 05/03/16 08:23 05/03/16 07:27 05/03/16 08:24 General appearance: Present: no acute distress, well-nourished Results - Labs CBC & Chem 7: 05/02/16 07:36 05/02/16 07:36 Labs: Laboratory Last Values WBC 8.5 K/mm3 (4.5-11.0) 05/02/16 07:36 RBC 4.69 M/mm3 (3.65-5.03) 05/02/16 07:36 Hgb 10.5 gm/dl (11.8-15.2) L 05/02/16 07:36 Hct 34.4 % (35.5-45.6) L 05/02/16 07:36 MCV 73 fl (84-94) L 05/02/16 07:36 MCH 22 pg (28-32) L 05/02/16 07:36 MCHC 31 % (32-34) L 05/02/16 07:36 RDW 19.9 % (13.2-15.2) H 05/02/16 07:36 Plt Count 403 K/mm3 (140-440) 05/02/16 07:36 Lymph % (Auto) 4.8 % (13.4-35.0) L 05/02/16 07:36 [place] % (Auto) 7.2 % (0.0-7.3) 05/02/16 07:36 Eos % (Auto) 0.0 % (0.0-4.3) 05/02/16 07:36 Baso % (Auto) 0.3 % (0.0-1.8) 05/02/16 07:36 Lymph # 0.4 K/mm3 (1.2-5.4) L 05/02/16 07:36 [place] # 0.6 K/mm3 (0.0-0.8) 05/02/16 07:36 Eos # 0.0 K/mm3 (0.0-0.4) 05/02/16 07:36 Baso # 0.0 K/mm3 (0.0-0.1) 05/02/16 07:36 Add Manual Diff Complete 04/29/16 07:18 Total Counted 100 04/29/16 07:18 Seg Neutrophils % 87.7 % (40.0-70.0) H 05/02/16 07:36 Seg Neuts % (Manual) 92.0 % (40.0-70.0) H 04/29/16 07:18 Band Neutrophils % 3.0 % 04/29/16 07:18 Lymphocytes % (Manual) 4.0 % (13.4-35.0) L 04/29/16 07:18 Reactive Lymphs % (Man) 0 % 04/29/16 07:18 Monocytes % (Manual) 1.0 % (0.0-7.3) 04/29/16 07:18 Eosinophils % (Manual) 0 % (0.0-4.3) 04/29/16 07:18 Basophils % (Manual) 0 % (0.0-1.8) 04/29/16 07:18 Metamyelocytes % 0 % 04/29/16 07:18 Myelocytes % 0 % 04/29/16 07:18 Promyelocytes % 0 % 04/29/16 07:18 Blast Cells % 0 % 04/29/16 07:18 Nucleated RBC % Not Reportable 04/29/16 07:18 Seg Neutrophils # 7.5 K/mm3 (1.8-7.7) 05/02/16 07:36 Seg Neutrophils # Man 12.6 K/mm3 (1.8-7.7) H 04/29/16 07:18 Band Neutrophils # 0.4 K/mm3 04/29/16 07:18 Lymphocytes # (Manual) 0.5 K/mm3 (1.2-5.4) L 04/29/16 07:18 Abs React Lymphs (Man) 0.0 K/mm3 04/29/16 07:18 Monocytes # (Manual) 0.1 K/mm3 (0.0-0.8) 04/29/16 07:18 Eosinophils # (Manual) 0.0 K/mm3 (0.0-0.4) 04/29/16 07:18 Basophils # (Manual) 0.0 K/mm3 (0.0-0.1) 04/29/16 07:18 Metamyelocytes # 0.0 K/mm3 04/29/16 07:18 Myelocytes # 0.0 K/mm3 04/29/16 07:18 Promyelocytes # 0.0 K/mm3 04/29/16 07:18 Blast Cells # 0.0 K/mm3 04/29/16 07:18 WBC Morphology Not Reportable 04/29/16 07:18 Hypersegmented Neuts Not Reportable 04/29/16 07:18 Hyposegmented Neuts Not Reportable 04/29/16 07:18 Hypogranular Neuts Not Reportable 04/29/16 07:18 Smudge Cells Not Reportable 04/29/16 07:18 Toxic Granulation Not Reportable 04/29/16 07:18 Toxic Vacuolation Not Reportable 04/29/16 07:18 Dohle Bodies Not Reportable 04/29/16 07:18 Pelger-Huet Anomaly Not Reportable 04/29/16 07:18 Jose L Rods Not Reportable 04/29/16 07:18 Platelet Estimate Not Reportable 04/29/16 07:18 Clumped Platelets Not Reportable 04/29/16 07:18 Plt Clumps, EDTA Not Reportable 04/29/16 07:18 Large Platelets Not Reportable 04/29/16 07:18 Giant Platelets Not Reportable 04/29/16 07:18 Platelet Satelliting Not Reportable 04/29/16 07:18 Plt Morphology Comment Not Reportable 04/29/16 07:18 RBC Morphology Not Reportable 04/29/16 07:18 Dimorphic RBCs Not Reportable 04/29/16 07:18 Polychromasia Not Reportable 04/29/16 07:18 Hypochromasia Not Reportable 04/29/16 07:18 Poikilocytosis Few 04/29/16 07:18 Anisocytosis 1+ 04/29/16 07:18 Microcytosis Not Reportable 04/29/16 07:18 Macrocytosis Not Reportable 04/29/16 07:18 Spherocytes Not Reportable 04/29/16 07:18 Pappenheimer Bodies Not Reportable 04/29/16 07:18 Sickle Cells Not Reportable 04/29/16 07:18 Target Cells Not Reportable 04/29/16 07:18 Tear Drop Cells Not Reportable 04/29/16 07:18 Ovalocytes Not Reportable 04/29/16 07:18 Helmet Cells Not Reportable 04/29/16 07:18 [place] Bodies Not Reportable 04/29/16 07:18 [place] Rings Not Reportable 04/29/16 07:18 [place] Cells Not Reportable 04/29/16 07:18 Bite Cells Not Reportable 04/29/16 07:18 Crenated Cell Not Reportable 04/29/16 07:18 Elliptocytes Not Reportable 04/29/16 07:18 Acanthocytes (Spur) Not Reportable 04/29/16 07:18 Rouleaux Not Reportable 04/29/16 07:18 Hemoglobin C Crystals Not Reportable 04/29/16 07:18 Schistocytes Not Reportable 04/29/16 07:18 Malaria parasites Not Reportable 04/29/16 07:18 Juan R Bodies Not Reportable 04/29/16 07:18 Hem Pathologist Commnt No 04/29/16 07:18 POC ABG pH 7.455 (7.35-7.45) H 04/28/16 11:44 POC ABG pCO2 40.0 (35-45) 04/28/16 11:44 POC ABG pO2 106 (80-105) H 04/28/16 11:44 POC ABG HCO3 28.1 04/28/16 11:44 POC ABG Total CO2 29 04/28/16 11:44 POC ABG O2 Sat 98 04/28/16 11:44 POC ABG Base Excess 4 04/28/16 11:44 FiO2 35 % 04/28/16 11:44 Sodium 138 mmol/L (137-145) 05/02/16 07:36 Potassium 4.2 mmol/L (3.6-5.0) 05/02/16 07:36 Chloride 99.8 mmol/L (98-107) 05/02/16 07:36 Carbon Dioxide 26 mmol/L (22-30) 05/02/16 07:36 Anion Gap 16 mmol/L 05/02/16 07:36 BUN 28 mg/dL (9-20) H 05/02/16 07:36 Creatinine 0.9 mg/dL (0.8-1.5) 05/02/16 07:36 Estimated GFR > 60 ml/min 05/02/16 07:36 BUN/Creatinine Ratio 31.11 % 05/02/16 07:36 Glucose 180 mg/dL (75-100) H 05/02/16 07:36 POC Glucose 98 (70-105) 05/03/16 06:08 Lactic Acid 0.8 mmol/L (0.7-2.0) 04/27/16 13:06 Calcium 8.8 mg/dL (8.4-10.2) 05/02/16 07:36 Total Bilirubin 0.9 mg/dL (0.1-1.2) 04/28/16 06:26 AST 16 units/L (5-40) 04/28/16 06:26 ALT 11 units/L (7-56) 04/28/16 06:26 Alkaline Phosphatase 102 units/L (35-129) 04/28/16 06:26 Troponin T 0.026 ng/mL (0.00-0.029) 04/27/16 13:06 NT-Pro-B Natriuret Pep 818.3 pg/mL (0-900) 04/27/16 13:06 Total Protein 7.0 g/dL (6.3-8.2) 04/28/16 06:26 Albumin 3.3 g/dL (3.9-5) L 04/28/16 06:26 Albumin/Globulin Ratio 0.9 % 04/28/16 06:26 Urine Color Yellow (Yellow) 04/27/16 14:00 Urine Turbidity Slightly-cloudy (Clear) 04/27/16 14:00 Urine pH 5.0 (5.0-7.0) 04/27/16 14:00 Ur Specific [place] 1.019 (1.003-1.030) 04/27/16 14:00 Urine Protein 100 mg/dl mg/dL (Negative) 04/27/16 14:00 Urine Glucose (UA) Neg mg/dL (Negative) 04/27/16 14:00 Urine Ketones Neg mg/dL (Negative) 04/27/16 14:00 Urine Blood Neg (Negative) 04/27/16 14:00 Urine Nitrite Neg (Negative) 04/27/16 14:00 Urine Bilirubin Neg (Negative) 04/27/16 14:00 Urine Urobilinogen < 2.0 mg/dL (<2.0) 04/27/16 14:00 Ur Leukocyte Esterase Neg (Negative) 04/27/16 14:00 Urine WBC (Auto) 1.0 /HPF (0.0-6.0) 04/27/16 14:00 Urine RBC (Auto) 1.0 /HPF (0.0-6.0) 04/27/16 14:00 Urine Bacteria (Auto) 1+ /HPF (Negative) 04/27/16 14:00 Hyaline Casts 1 /LPF 04/27/16 14:00 Urine Mucus Few /HPF 04/27/16 14:00
[2016-05-03] MEDS: SINGULAIR PO SCH ×2 (10:00→18:00)
[2016-05-03] MEDS: CARDIZEM CD PO SCH (10:00)
[2016-05-03] MEDS: HALDOL IM SCH ×4 (10:00→22:52)
[2016-05-03] MEDS: PLAVIX PO SCH (10:00)
--- NOTE | 2016-05-03 10:59 | Progress Note ---
Assessment and Plan Acute respiratory failure on BiPAP Acute systolic heart failure Acute COPD exaggeration Non-STEMI type II Nonsustained V. tach Altered mental status Hypertension Diabetes Hyperlipidemia Possible CVA Recommend: In view of inability to eat properly possible high risk for aspiration suggest Dobbhoff tube placement for heart failure medications as echo Cardizem shows EF 25 to 30 percent as patient has non sustained V. tach beta lemuel therapy along with NICHELLE inhibitors patient is evolumic. Until Dopp office placed IV troponin all check magnesium level and continue workup for delirium discussed with rn to reduce restraints and retry dobbhoff Subjective Date of service: 05/03/16 Principal diagnosis: Acute Hypoxemic Respiratory Failure; Acute COPD exacerbation Interval history: pt on restraints and no chest pain or sob Objective Vital Signs Temp Pulse Pulse Pulse Resp Resp BP 05/03/16 08:24 05/03/16 08:23 96 H 18 05/03/16 07:27 108 H 136/78 05/03/16 07:17 98.2 F 88 14 05/03/16 00:17 97.6 F 103 H 22 05/02/16 22:00 110 H 22 05/02/16 21:44 05/02/16 21:00 79 20 05/02/16 18:16 20 05/02/16 16:00 97.9 F 110 H 20 05/02/16 14:32 76 18 05/02/16 14:21 74 18 BP Pulse Ox 05/03/16 08:24 95 05/03/16 08:23 05/03/16 07:27 05/03/16 07:17 182/89 98 05/03/16 00:17 131/76 92 05/02/16 22:00 99 05/02/16 21:44 96 05/02/16 21:00 05/02/16 18:16 05/02/16 16:00 163/95 99 05/02/16 14:32 05/02/16 14:21 - Physical Examination General: No Apparent Distress HEENT: Positive: PERRL, Mucus Membranes Moist Neck: Positive: neck supple, trachea midline Cardiac: Positive: Reg Rate and Rhythm, Audible Murmur Lungs: Positive: clear to auscultation Neuro: Positive: Other (deliria) Abdomen: Positive: Soft, Active Bowel Sounds. Negative: Tender, Distended Skin: Positive: Clear Incision: Cardiac Cath Site Musculoskeletal: No Pain, Normal Range of Motion Extremities: Present: normal. Absent: edema - Imaging and Cardiology Echo: report reviewed (EF 25 30% with mild aortic regurgitation)
--- NOTE | 2016-05-03 13:50 | Progress Note ---
Assessment and Plan - Patient Problems (1) Acute and chronic respiratory failure with hypoxia Current Visit: Yes Status: Acute (2) COPD exacerbation Current Visit: Yes Status: Acute (3) Atrial fibrillation with rapid ventricular response Current Visit: No Status: Acute (4) Diabetes mellitus Current Visit: No Status: Chronic Qualifiers: Diabetes mellitus type: type 2 Subjective Date of service: 05/03/16 Principal diagnosis: Acute Hypoxemic Respiratory Failure; Acute COPD exacerbation Interval history: Seen and examined at bedside; 24 hour events reviewed; nursing and respiratory care staff consulted; no adverse overnight events reported to me; Objective Vital Signs - 12hr 05/03/16 05/03/16 05/03/16 07:17 07:27 08:23 Temperature 98.2 F Pulse Rate 108 H Pulse Rate [ 96 H Anterior Bilateral Throughout] Pulse Rate [ 88 Right Radial] Respiratory 14 Rate Respiratory 18 Rate [Anterior Bilateral Throughout] Blood Pressure 136/78 Blood Pressure 182/89 [Right Arm] O2 Sat by Pulse 98 Oximetry 05/03/16 08:24 Temperature Pulse Rate Pulse Rate [ Anterior Bilateral Throughout] Pulse Rate [ Right Radial] Respiratory Rate Respiratory Rate [Anterior Bilateral Throughout] Blood Pressure Blood Pressure [Right Arm] O2 Sat by Pulse 95 Oximetry Constitutional: no acute distress, alert Eyes: non-icteric ENT: oropharynx moist Neck: supple Effort: mildly labored Ascultation: Bilateral: diminished breath sounds, rhonchi (bases) Cardiovascular: regular rate and rhythm Gastrointestinal: normoactive bowel sounds, soft, non-tender, non-distended Integumentary: normal Extremities: no cyanosis, pulses normal, no ischemia or petechiae Neurologic: non-focal exam (grossly), pupils equal and round Psychiatric: other (dementia element) CBC and BMP: 05/02/16 07:36 05/02/16 07:36 ABG, PT/INR, D-dimer: ABG POC ABG pH 7.455 (7.35-7.45) H 04/28/16 11:44 POC ABG pCO2 40.0 (35-45) 04/28/16 11:44 POC ABG pO2 106 (80-105) H 04/28/16 11:44 POC ABG HCO3 28.1 04/28/16 11:44 POC ABG Total CO2 29 04/28/16 11:44 POC ABG O2 Sat 98 04/28/16 11:44 Abnormal lab findings: Abnormal Labs 04/28/16 04/28/16 04/28/16 06:26 06:26 11:44 WBC Hgb 8.9 L Hct 29.5 L MCV 74 L MCH 22 L MCHC 30 L RDW 20.3 H Plt Count 449 H Lymph % (Auto) 11.0 L [place] % (Auto) Lymph # 1.0 L [place] # Seg Neutrophils % 87.0 H Seg Neuts % (Manual) Lymphocytes % (Manual) Seg Neutrophils # 8.1 H Seg Neutrophils # Man Lymphocytes # (Manual) POC ABG pH 7.455 H POC ABG pO2 106 H Potassium 5.3 H BUN 26 H Glucose 130 H POC Glucose Albumin 3.3 L 04/28/16 04/29/16 04/29/16 17:47 07:18 07:18 WBC 13.7 H Hgb 8.3 L Hct 27.5 L MCV 72 L MCH 22 L MCHC 30 L RDW 19.8 H Plt Count Lymph % (Auto) [place] % (Auto) Lymph # [place] # Seg Neutrophils % Seg Neuts % (Manual) 92.0 H Lymphocytes % (Manual) 4.0 L Seg Neutrophils # Seg Neutrophils # Man 12.6 H Lymphocytes # (Manual) 0.5 L POC ABG pH POC ABG pO2 Potassium BUN 29 H Glucose 140 H POC Glucose 177 H Albumin 04/30/16 05/01/16 05/01/16 06:37 11:44 11:44 WBC 14.9 H Hgb 9.4 L Hct 31.2 L MCV 74 L MCH 22 L MCHC 30 L RDW 20.8 H Plt Count Lymph % (Auto) 6.1 L [place] % (Auto) 10.0 H Lymph # 0.9 L [place] # 1.5 H Seg Neutrophils % 83.8 H Seg Neuts % (Manual) Lymphocytes % (Manual) Seg Neutrophils # 12.5 H Seg Neutrophils # Man Lymphocytes # (Manual) POC ABG pH POC ABG pO2 Potassium 3.5 L D BUN 33 H Glucose 70 L POC Glucose 63 L Albumin 05/02/16 05/02/16 05/02/16 05:44 07:36 07:36 WBC Hgb 10.5 L Hct 34.4 L MCV 73 L MCH 22 L MCHC 31 L RDW 19.9 H Plt Count Lymph % (Auto) 4.8 L [place] % (Auto) Lymph # 0.4 L [place] # Seg Neutrophils % 87.7 H Seg Neuts % (Manual) Lymphocytes % (Manual) Seg Neutrophils # Seg Neutrophils # Man Lymphocytes # (Manual) POC ABG pH POC ABG pO2 Potassium BUN 28 H Glucose 180 H POC Glucose 175 H Albumin
[2016-05-03] MEDS: ZESTRIL PO SCH (17:53)
[2016-05-03] MEDS: XALATAN 0.005% OU SCH (18:00)
[2016-05-03] MEDS: BABY ASPIRIN PO SCH (18:44)
[2016-05-03] MEDS: LOVENOX SUB-Q SCH (18:59)
[2016-05-03 19:17] LABS: Alanine Aminotransferase 9 units/L (7-56); Albumin 3.2 g/dL (3.9-5); Alkaline Phosphatase 77 units/L (35-129); BUN/Creatinine Ratio 33.33; Bilirubin,Total 1.6 mg/dL (0.1-1.2); Blood Urea Nitrogen 30 mg/dL (9-20); Calcium 9.2 mg/dL (8.4-10.2); Carbon Dioxide 24 mmol/L (22-30); Glucose 54 mg/dL (75-100); Magnesium 2.1 mg/dL (1.7-2.3); Total Protein 6.4 g/dL (6.3-8.2)
[2016-05-03 19:58] LABS: Anion Gap 21 mmol/L; Chloride 101.4 mmol/L (98-107); Potassium 4.5 mmol/L (3.6-5.0); Sodium 142 mmol/L (137-145)
[2016-05-04] MEDS: DUONEB 0.5 MG-3 MG/3 ML SOLN IH SCH ×4 (02:33→19:59)
[2016-05-04] MEDS: HALDOL IM SCH ×6 (03:56→18:33)
[2016-05-04] MEDS: LOPRESSOR IV SCH ×4 (05:36→17:19)
[2016-05-04] MEDS: AMARYL PO SCH (08:00)
[2016-05-04 08:47] LABS: Basophils % (Auto) 0.2 % (0.0-1.8); Eosinophils % (Auto) 0.1 % (0.0-4.3); Mean Corpuscular HGB Conc 29 % (32-34); Mean Corpuscular Volume 77 fl (84-94); Platelet Count 349 K/mm3 (140-440); Red Blood Count 5.18 M/mm3 (3.65-5.03); White Blood Count 13.6 K/mm3 (4.5-11.0)
[2016-05-04 08:53] LABS: Hematocrit 39.8 % (35.5-45.6); Hemoglobin 11.4 gm/dl (11.8-15.2); Mean Corpuscular Hemoglobin 22 pg (28-32); Red Cell Distribution Width 20.4 % (13.2-15.2)
[2016-05-04 08:58] LABS: Anion Gap 20 mmol/L; BUN/Creatinine Ratio 33.33; Blood Urea Nitrogen 30 mg/dL (9-20); Calcium 8.9 mg/dL (8.4-10.2); Carbon Dioxide 21 mmol/L (22-30); Chloride 101.3 mmol/L (98-107); Glucose 82 mg/dL (75-100); Potassium 4.2 mmol/L (3.6-5.0); Sodium 138 mmol/L (137-145)
--- NOTE | 2016-05-04 09:21 | Progress Note ---
Assessment and Plan Assessment and plan: --Brief episodes of bradycardia Without symptoms of dizziness and diaphoresis Probably secondary to medications, hold beta blockers Cardizem Heart rate is less than 100 --Acute hypoxic/hypercapnic respiratory failure. Oxygen , titrated to O2 sats more than 90% , BiPAP as needed. Nebulizers, IV antibiotics, supportive care, pulmonary following --Acute COPD exacerbation Oxygen nebulizers IV antibiotics and steroids --Atrial fibrillation. Continue beta blockers, amiodarone, Cardizem Cardiology following, adjust medications if bradycardia -- History of nonsustained V. tach Continue amiodarone per cardiology --Hypertension. Well-controlled, new current antihypertensives When necessary hydralazine --Hyperlipidemia. Stable on lipid-lowering medications Personality disorder/ agitation -- Mental health consult placed, i called and still no recommendation. Continue Risperdal and Ativan. Haldol 5mg IV q 4 hr --Moderate protein calorie malnutrition ; Nutrition supplements, supportive care --Dobbhoff feeds and medications/possible PEG placement per GI Off Plavix for the procedure as requested by GI Consults and recommendations noted and appreciated Plan of care discussed with the patient as well as the nurse History Interval history: Since seen and evaluated medical records reviewed No new events reported by the nursing staff Patient feels better, minimally communicative, intermittent mild bradycardia asymptomatic Patient did not receive many of his medications as unable to place Dobbhoff Vitals reviewed, stable Hospitalist Physical - Constitutional Vitals: Temp Pulse Resp BP Pulse Ox 99.2 F 93 H 22 140/75 94 05/04/16 07:40 05/04/16 07:40 05/04/16 07:40 05/04/16 07:40 05/04/16 07:40 General appearance: Present: no acute distress, cachectic, disheveled, other ( chronically ill-looking) - EENT Eyes: Present: PERRL - Neck Neck: Present: normal ROM - Respiratory Respiratory effort: normal Respiratory: bilateral: diminished, rales, negative: rhonchi, wheezing - Cardiovascular Rhythm: regular Heart Sounds: Present: S1 & S2 - Extremities Extremities: no ischemia, No edema - Abdominal General gastrointestinal: soft, non-tender, non-distended, normal bowel sounds - Integumentary Integumentary: Present: clear, warm - Psychiatric Psychiatric: appropriate mood/affect, agitated - Neurologic Neurologic: moves all extremities Results - Labs CBC & Chem 7: 05/04/16 08:38 05/04/16 08:38 Labs: Laboratory Last Values WBC 13.6 K/mm3 (4.5-11.0) H 05/04/16 08:38 RBC 5.18 M/mm3 (3.65-5.03) H 05/04/16 08:38 Hgb 11.4 gm/dl (11.8-15.2) L 05/04/16 08:38 Hct 39.8 % (35.5-45.6) 05/04/16 08:38 MCV 77 fl (84-94) L D 05/04/16 08:38 MCH 22 pg (28-32) L 05/04/16 08:38 MCHC 29 % (32-34) L 05/04/16 08:38 RDW 20.4 % (13.2-15.2) H 05/04/16 08:38 Plt Count 349 K/mm3 (140-440) 05/04/16 08:38 Lymph % (Auto) 10.2 % (13.4-35.0) L 05/04/16 08:38 [place] % (Auto) 14.9 % (0.0-7.3) H 05/04/16 08:38 Eos % (Auto) 0.1 % (0.0-4.3) 05/04/16 08:38 Baso % (Auto) 0.2 % (0.0-1.8) 05/04/16 08:38 Lymph # 1.4 K/mm3 (1.2-5.4) 05/04/16 08:38 [place] # 2.0 K/mm3 (0.0-0.8) H 05/04/16 08:38 Eos # 0.0 K/mm3 (0.0-0.4) 05/04/16 08:38 Baso # 0.0 K/mm3 (0.0-0.1) 05/04/16 08:38 Add Manual Diff Complete 04/29/16 07:18 Total Counted 100 04/29/16 07:18 Seg Neutrophils % 74.6 % (40.0-70.0) H 05/04/16 08:38 Seg Neuts % (Manual) 92.0 % (40.0-70.0) H 04/29/16 07:18 Band Neutrophils % 3.0 % 04/29/16 07:18 Lymphocytes % (Manual) 4.0 % (13.4-35.0) L 04/29/16 07:18 Reactive Lymphs % (Man) 0 % 04/29/16 07:18 Monocytes % (Manual) 1.0 % (0.0-7.3) 04/29/16 07:18 Eosinophils % (Manual) 0 % (0.0-4.3) 04/29/16 07:18 Basophils % (Manual) 0 % (0.0-1.8) 04/29/16 07:18 Metamyelocytes % 0 % 04/29/16 07:18 Myelocytes % 0 % 04/29/16 07:18 Promyelocytes % 0 % 04/29/16 07:18 Blast Cells % 0 % 04/29/16 07:18 Nucleated RBC % Not Reportable 04/29/16 07:18 Seg Neutrophils # 10.2 K/mm3 (1.8-7.7) H 05/04/16 08:38 Seg Neutrophils # Man 12.6 K/mm3 (1.8-7.7) H 04/29/16 07:18 Band Neutrophils # 0.4 K/mm3 04/29/16 07:18 Lymphocytes # (Manual) 0.5 K/mm3 (1.2-5.4) L 04/29/16 07:18 Abs React Lymphs (Man) 0.0 K/mm3 04/29/16 07:18 Monocytes # (Manual) 0.1 K/mm3 (0.0-0.8) 04/29/16 07:18 Eosinophils # (Manual) 0.0 K/mm3 (0.0-0.4) 04/29/16 07:18 Basophils # (Manual) 0.0 K/mm3 (0.0-0.1) 04/29/16 07:18 Metamyelocytes # 0.0 K/mm3 04/29/16 07:18 Myelocytes # 0.0 K/mm3 04/29/16 07:18 Promyelocytes # 0.0 K/mm3 04/29/16 07:18 Blast Cells # 0.0 K/mm3 04/29/16 07:18 WBC Morphology Not Reportable 04/29/16 07:18 Hypersegmented Neuts Not Reportable 04/29/16 07:18 Hyposegmented Neuts Not Reportable 04/29/16 07:18 Hypogranular Neuts Not Reportable 04/29/16 07:18 Smudge Cells Not Reportable 04/29/16 07:18 Toxic Granulation Not Reportable 04/29/16 07:18 Toxic Vacuolation Not Reportable 04/29/16 07:18 Dohle Bodies Not Reportable 04/29/16 07:18 Pelger-Huet Anomaly Not Reportable 04/29/16 07:18 Jose L Rods Not Reportable 04/29/16 07:18 Platelet Estimate Not Reportable 04/29/16 07:18 Clumped Platelets Not Reportable 04/29/16 07:18 Plt Clumps, EDTA Not Reportable 04/29/16 07:18 Large Platelets Not Reportable 04/29/16 07:18 Giant Platelets Not Reportable 04/29/16 07:18 Platelet Satelliting Not Reportable 04/29/16 07:18 Plt Morphology Comment Not Reportable 04/29/16 07:18 RBC Morphology Not Reportable 04/29/16 07:18 Dimorphic RBCs Not Reportable 04/29/16 07:18 Polychromasia Not Reportable 04/29/16 07:18 Hypochromasia Not Reportable 04/29/16 07:18 Poikilocytosis Few 04/29/16 07:18 Anisocytosis 1+ 04/29/16 07:18 Microcytosis Not Reportable 04/29/16 07:18 Macrocytosis Not Reportable 04/29/16 07:18 Spherocytes Not Reportable 04/29/16 07:18 Pappenheimer Bodies Not Reportable 04/29/16 07:18 Sickle Cells Not Reportable 04/29/16 07:18 Target Cells Not Reportable 04/29/16 07:18 Tear Drop Cells Not Reportable 04/29/16 07:18 Ovalocytes Not Reportable 04/29/16 07:18 Helmet Cells Not Reportable 04/29/16 07:18 [place] Bodies Not Reportable 04/29/16 07:18 [place] Rings Not Reportable 04/29/16 07:18 [place] Cells Not Reportable 04/29/16 07:18 Bite Cells Not Reportable 04/29/16 07:18 Crenated Cell Not Reportable 04/29/16 07:18 Elliptocytes Not Reportable 04/29/16 07:18 Acanthocytes (Spur) Not Reportable 04/29/16 07:18 Rouleaux Not Reportable 04/29/16 07:18 Hemoglobin C Crystals Not Reportable 04/29/16 07:18 Schistocytes Not Reportable 04/29/16 07:18 Malaria parasites Not Reportable 04/29/16 07:18 Juan R Bodies Not Reportable 04/29/16 07:18 Hem Pathologist Commnt No 04/29/16 07:18 POC ABG pH 7.455 (7.35-7.45) H 04/28/16 11:44 POC ABG pCO2 40.0 (35-45) 04/28/16 11:44 POC ABG pO2 106 (80-105) H 04/28/16 11:44 POC ABG HCO3 28.1 04/28/16 11:44 POC ABG Total CO2 29 04/28/16 11:44 POC ABG O2 Sat 98 04/28/16 11:44 POC ABG Base Excess 4 04/28/16 11:44 FiO2 35 % 04/28/16 11:44 Sodium 138 mmol/L (137-145) 05/04/16 08:38 Potassium 4.2 mmol/L (3.6-5.0) 05/04/16 08:38 Chloride 101.3 mmol/L (98-107) 05/04/16 08:38 Carbon Dioxide 21 mmol/L (22-30) L 05/04/16 08:38 Anion Gap 20 mmol/L 05/04/16 08:38 BUN 30 mg/dL (9-20) H 05/04/16 08:38 Creatinine 0.9 mg/dL (0.8-1.5) 05/04/16 08:38 Estimated GFR > 60 ml/min 05/04/16 08:38 BUN/Creatinine Ratio 33.33 % 05/04/16 08:38 Glucose 82 mg/dL (75-100) 05/04/16 08:38 POC Glucose 92 (70-105) 05/04/16 06:25 Lactic Acid 0.8 mmol/L (0.7-2.0) 04/27/16 13:06 Calcium 8.9 mg/dL (8.4-10.2) 05/04/16 08:38 Magnesium 2.1 mg/dL (1.7-2.3) 05/03/16 18:40 Total Bilirubin 1.6 mg/dL (0.1-1.2) H 05/03/16 18:40 AST 15 units/L (5-40) 05/03/16 18:40 ALT 9 units/L (7-56) 05/03/16 18:40 Alkaline Phosphatase 77 units/L (35-129) 05/03/16 18:40 Troponin T 0.026 ng/mL (0.00-0.029) 04/27/16 13:06 NT-Pro-B Natriuret Pep 818.3 pg/mL (0-900) 04/27/16 13:06 Total Protein 6.4 g/dL (6.3-8.2) 05/03/16 18:40 Albumin 3.2 g/dL (3.9-5) L 05/03/16 18:40 Albumin/Globulin Ratio 1.0 % 05/03/16 18:40 Urine Color Yellow (Yellow) 04/27/16 14:00 Urine Turbidity Slightly-cloudy (Clear) 04/27/16 14:00 Urine pH 5.0 (5.0-7.0) 04/27/16 14:00 Ur Specific [place] 1.019 (1.003-1.030) 04/27/16 14:00 Urine Protein 100 mg/dl mg/dL (Negative) 04/27/16 14:00 Urine Glucose (UA) Neg mg/dL (Negative) 04/27/16 14:00 Urine Ketones Neg mg/dL (Negative) 04/27/16 14:00 Urine Blood Neg (Negative) 04/27/16 14:00 Urine Nitrite Neg (Negative) 04/27/16 14:00 Urine Bilirubin Neg (Negative) 04/27/16 14:00 Urine Urobilinogen < 2.0 mg/dL (<2.0) 04/27/16 14:00 Ur Leukocyte Esterase Neg (Negative) 04/27/16 14:00 Urine WBC (Auto) 1.0 /HPF (0.0-6.0) 04/27/16 14:00 Urine RBC (Auto) 1.0 /HPF (0.0-6.0) 04/27/16 14:00 Urine Bacteria (Auto) 1+ /HPF (Negative) 04/27/16 14:00 Hyaline Casts 1 /LPF 04/27/16 14:00 Urine Mucus Few /HPF 04/27/16 14:00
[2016-05-04] MEDS: PLAVIX PO SCH (10:00)
[2016-05-04] MEDS: CARDIZEM CD PO SCH (10:00)
[2016-05-04] MEDS: PEPCID PO SCH ×2 (10:00→22:50)
[2016-05-04] MEDS: CORDARONE PO SCH ×2 (10:00→22:50)
[2016-05-04] MEDS: BABY ASPIRIN PO SCH (10:00)
[2016-05-04] MEDS: GLUCOPHAGE XR PO SCH ×2 (10:00→22:50)
[2016-05-04] MEDS: COREG PO SCH ×2 (10:00→22:50)
[2016-05-04] MEDS: ZESTRIL PO SCH (10:00)
--- NOTE | 2016-05-04 11:17 | Progress Note ---
Assessment and Plan Acute respiratory failure on BiPAP Acute systolic heart failure Acute COPD exaggeration Non-STEMI type II Nonsustained V. tach Altered mental status Hypertension Diabetes Hyperlipidemia Possible CVA Recommend: In view of inability to eat properly possible high risk for aspiration suggest Dobbhoff tube placement for heart failure medications as echo Cardizem shows EF 25 to 30 percent as patient has non sustained V. tach beta lemuel therapy along with NICHELLE inhibitors patient is evolumic. Until Dopp office placed IV lopressorl check magnesium level and continue workup for delirium discussed with rn to reduce restraints and retry dobbhoff. -pt has no cardiac contra indications for peg tube Subjective Date of service: 05/04/16 Principal diagnosis: Acute Hypoxemic Respiratory Failure; Acute COPD exacerbation Interval history: pt has no compliants Objective Vital Signs Temp Pulse Pulse Pulse Pulse Resp Resp 05/04/16 09:49 05/04/16 07:40 99.2 F 93 H 22 05/04/16 07:25 87 18 05/04/16 07:17 85 20 05/04/16 06:20 107 H 05/04/16 05:05 98.3 F 107 H 20 05/03/16 23:15 98.1 F 86 20 05/03/16 23:04 84 05/03/16 20:32 91 H 20 05/03/16 20:20 05/03/16 20:17 70 18 05/03/16 20:13 05/03/16 14:58 97.4 F L 102 H 16 05/03/16 14:05 68 18 05/03/16 13:57 62 18 BP BP Pulse Ox 05/04/16 09:49 96 05/04/16 07:40 140/75 94 05/04/16 07:25 05/04/16 07:17 05/04/16 06:20 127/79 05/04/16 05:05 116/79 98 05/03/16 23:15 147/76 97 05/03/16 23:04 133/73 05/03/16 20:32 05/03/16 20:20 93 05/03/16 20:17 05/03/16 20:13 93 05/03/16 14:58 136/84 96 05/03/16 14:05 05/03/16 13:57 - Physical Examination General: No Apparent Distress HEENT: Positive: PERRL, Mucus Membranes Moist Neck: Positive: neck supple, trachea midline Cardiac: Positive: Reg Rate and Rhythm Lungs: Positive: clear to auscultation Neuro: Positive: Other (deliria) Abdomen: Positive: Soft, Active Bowel Sounds. Negative: Tender, Distended Skin: Positive: Clear Incision: Cardiac Cath Site Musculoskeletal: No Pain, Normal Range of Motion Extremities: Present: normal. Absent: edema - Labs and Meds Cardiac Enzymes 05/03/16 Range/Units 18:40 AST 15 (5-40) units/L CBC 05/04/16 Range/Units 08:38 WBC 13.6 H (4.5-11.0) K/mm3 RBC 5.18 H (3.65-5.03) M/mm3 Hgb 11.4 L (11.8-15.2) gm/dl Hct 39.8 (35.5-45.6) % Plt Count 349 (140-440) K/mm3 Lymph # 1.4 (1.2-5.4) K/mm3 [place] # 2.0 H (0.0-0.8) K/mm3 Eos # 0.0 (0.0-0.4) K/mm3 Baso # 0.0 (0.0-0.1) K/mm3 Comprehensive Metabolic Panel 05/03/16 05/04/16 Range/Units 18:40 08:38 Sodium 142 138 (137-145) mmol/L Potassium 4.5 4.2 (3.6-5.0) mmol/L Chloride 101.4 101.3 (98-107) mmol/L Carbon Dioxide 24 21 L (22-30) mmol/L BUN 30 H 30 H (9-20) mg/dL Creatinine 0.9 0.9 (0.8-1.5) mg/dL Glucose 54 L 82 (75-100) mg/dL Calcium 9.2 8.9 (8.4-10.2) mg/dL AST 15 (5-40) units/L ALT 9 (7-56) units/L Alkaline Phosphatase 77 (35-129) units/L Total Protein 6.4 (6.3-8.2) g/dL Albumin 3.2 L (3.9-5) g/dL - Imaging and Cardiology Echo: report reviewed (EF 25 30% with mild aortic regurgitation) - Telemetry EKG Rhythm: Sinus Rhythm (no vtach noted for 48 hours)
[2016-05-04] MEDS: LOVENOX SUB-Q SCH (13:25)
[2016-05-04] MEDS: SINGULAIR PO SCH (17:20)
[2016-05-04] MEDS: XALATAN 0.005% OU SCH (18:30)
[2016-05-04] MEDS: D5W 1,000 ML IV SCH (18:35)
--- NOTE | 2016-05-04 22:03 | Progress Note ---
Assessment and Plan Patient sleeping at this time on 3 litres O2. O2 satuaration 99%.Not responding to the verbal stimuli. Patient weak.No acute respiratory distress. - Patient Problems (1) COPD exacerbation Current Visit: Yes Status: Acute Plan to address problem: O2 supplementation. Albuterol/atrovent aerosol treatments q 6 hours. Continue I?V solumedral. (2) Acute respiratory failure with hypoxia and hypercapnia Current Visit: Yes Status: Acute Plan to address problem: O2 supplementation. Albuterol/atrovent aerosol treatments. Continue I/V solumedral. Continue S/C Lovenox. Continue famotidine. (3) Atrial fibrillation with rapid ventricular response Current Visit: No Status: Acute (4) CAD (coronary artery disease) Current Visit: No Status: Chronic Qualifiers: Coronary Disease-Associated Artery/Lesion type: [place] artery Plan to address problem: Patient S/P CABG. Management as per cardiology. (5) Diabetes mellitus Current Visit: No Status: Chronic Qualifiers: Diabetes mellitus type: type 2 Plan to address problem: Management as per primary care. Subjective Date of service: 05/04/16 Principal diagnosis: Acute Hypoxemic Respiratory Failure; Acute COPD exacerbation Interval history: Patient sleeping at this time on 3 litres O2. O2 satuaration 99%. Not responding to verbal stimuli .Patient weak.No acute respiratory distress. Objective Vital Signs - 12hr 05/04/16 05/04/16 05/04/16 10:00 14:18 14:25 Temperature Pulse Rate 107 H Pulse Rate [ 95 H 91 H Anterior Bilateral Throughout] Pulse Rate [ Right Radial] Respiratory Rate Respiratory 20 20 Rate [Anterior Bilateral Throughout] Blood Pressure 127/79 Blood Pressure [Right Arm] O2 Sat by Pulse Oximetry 05/04/16 05/04/16 05/04/16 15:13 15:30 17:19 Temperature 98.5 F Pulse Rate 103 H Pulse Rate [ Anterior Bilateral Throughout] Pulse Rate [ 80 Right Radial] Respiratory 25 H 20 Rate Respiratory Rate [Anterior Bilateral Throughout] Blood Pressure 84/66 Blood Pressure 84/66 [Right Arm] O2 Sat by Pulse 97 Oximetry 05/04/16 05/04/16 05/04/16 19:59 20:01 20:02 Temperature Pulse Rate Pulse Rate [ 94 H Anterior Bilateral Throughout] Pulse Rate [ Right Radial] Respiratory Rate Respiratory 18 Rate [Anterior Bilateral Throughout] Blood Pressure Blood Pressure [Right Arm] O2 Sat by Pulse 98 98 Oximetry 05/04/16 05/04/16 20:09 20:38 Temperature 97.7 F Pulse Rate Pulse Rate [ 93 H Anterior Bilateral Throughout] Pulse Rate [ 78 Right Radial] Respiratory 20 Rate Respiratory 17 Rate [Anterior Bilateral Throughout] Blood Pressure Blood Pressure 128/81 [Right Arm] O2 Sat by Pulse 99 Oximetry Constitutional: no acute distress, asleep Eyes: non-icteric ENT: oropharynx moist Neck: supple Effort: mildly labored Ascultation: Bilateral: diminished breath sounds, rhonchi (bases) Cardiovascular: regular rate and rhythm Gastrointestinal: normoactive bowel sounds, soft, non-tender, non-distended Integumentary: normal Extremities: no cyanosis, pulses normal, no ischemia or petechiae Neurologic: non-focal exam (grossly), pupils equal and round Psychiatric: other (dementia element) CBC and BMP: 05/04/16 08:38 05/04/16 08:38 ABG, PT/INR, D-dimer: ABG POC ABG pH 7.455 (7.35-7.45) H 04/28/16 11:44 POC ABG pCO2 40.0 (35-45) 04/28/16 11:44 POC ABG pO2 106 (80-105) H 04/28/16 11:44 POC ABG HCO3 28.1 04/28/16 11:44 POC ABG Total CO2 29 04/28/16 11:44 POC ABG O2 Sat 98 04/28/16 11:44 Abnormal lab findings: Abnormal Labs 04/28/16 04/28/16 04/28/16 06:26 06:26 11:44 WBC RBC Hgb 8.9 L Hct 29.5 L MCV 74 L MCH 22 L MCHC 30 L RDW 20.3 H Plt Count 449 H Lymph % (Auto) 11.0 L [place] % (Auto) Lymph # 1.0 L [place] # Seg Neutrophils % 87.0 H Seg Neuts % (Manual) Lymphocytes % (Manual) Seg Neutrophils # 8.1 H Seg Neutrophils # Man Lymphocytes # (Manual) POC ABG pH 7.455 H POC ABG pO2 106 H Potassium 5.3 H Carbon Dioxide BUN 26 H Glucose 130 H POC Glucose Total Bilirubin Albumin 3.3 L 04/28/16 04/29/16 04/29/16 17:47 07:18 07:18 WBC 13.7 H RBC Hgb 8.3 L Hct 27.5 L MCV 72 L MCH 22 L MCHC 30 L RDW 19.8 H Plt Count Lymph % (Auto) [place] % (Auto) Lymph # [place] # Seg Neutrophils % Seg Neuts % (Manual) 92.0 H Lymphocytes % (Manual) 4.0 L Seg Neutrophils # Seg Neutrophils # Man 12.6 H Lymphocytes # (Manual) 0.5 L POC ABG pH POC ABG pO2 Potassium Carbon Dioxide BUN 29 H Glucose 140 H POC Glucose 177 H Total Bilirubin Albumin 04/30/16 05/01/16 05/01/16 06:37 11:44 11:44 WBC 14.9 H RBC Hgb 9.4 L Hct 31.2 L MCV 74 L MCH 22 L MCHC 30 L RDW 20.8 H Plt Count Lymph % (Auto) 6.1 L [place] % (Auto) 10.0 H Lymph # 0.9 L [place] # 1.5 H Seg Neutrophils % 83.8 H Seg Neuts % (Manual) Lymphocytes % (Manual) Seg Neutrophils # 12.5 H Seg Neutrophils # Man Lymphocytes # (Manual) POC ABG pH POC ABG pO2 Potassium 3.5 L D Carbon Dioxide BUN 33 H Glucose 70 L POC Glucose 63 L Total Bilirubin Albumin 05/02/16 05/02/16 05/02/16 05:44 07:36 07:36 WBC RBC Hgb 10.5 L Hct 34.4 L MCV 73 L MCH 22 L MCHC 31 L RDW 19.9 H Plt Count Lymph % (Auto) 4.8 L [place] % (Auto) Lymph # 0.4 L [place] # Seg Neutrophils % 87.7 H Seg Neuts % (Manual) Lymphocytes % (Manual) Seg Neutrophils # Seg Neutrophils # Man Lymphocytes # (Manual) POC ABG pH POC ABG pO2 Potassium Carbon Dioxide BUN 28 H Glucose 180 H POC Glucose 175 H Total Bilirubin Albumin 05/03/16 05/03/16 05/04/16 18:40 22:17 08:38 WBC 13.6 H RBC 5.18 H Hgb 11.4 L Hct MCV 77 L D MCH 22 L MCHC 29 L RDW 20.4 H Plt Count Lymph % (Auto) 10.2 L [place] % (Auto) 14.9 H Lymph # [place] # 2.0 H Seg Neutrophils % 74.6 H Seg Neuts % (Manual) Lymphocytes % (Manual) Seg Neutrophils # 10.2 H Seg Neutrophils # Man Lymphocytes # (Manual) POC ABG pH POC ABG pO2 Potassium Carbon Dioxide BUN 30 H Glucose 54 L POC Glucose 64 L Total Bilirubin 1.6 H Albumin 3.2 L 05/04/16 05/04/16 08:38 16:20 WBC RBC Hgb Hct MCV MCH MCHC RDW Plt Count Lymph % (Auto) [place] % (Auto) Lymph # [place] # Seg Neutrophils % Seg Neuts % (Manual) Lymphocytes % (Manual) Seg Neutrophils # Seg Neutrophils # Man Lymphocytes # (Manual) POC ABG pH POC ABG pO2 Potassium Carbon Dioxide 21 L BUN 30 H Glucose POC Glucose 140 H Total Bilirubin Albumin
[2016-05-04] MEDS: REMERON PO SCH (22:50)
[2016-05-05] MEDS: HALDOL IM SCH ×7 (01:05→18:38)
[2016-05-05] MEDS: DUONEB 0.5 MG-3 MG/3 ML SOLN IH SCH ×5 (02:05→21:09)
[2016-05-05] MEDS: ATIVAN PO PRN (03:05)
[2016-05-05] MEDS: LOPRESSOR IV SCH ×3 (04:20→20:13)
[2016-05-05 08:17] LABS: Anion Gap 16 mmol/L; BUN/Creatinine Ratio 28.88; Blood Urea Nitrogen 26 mg/dL (9-20); Calcium 8.7 mg/dL (8.4-10.2); Carbon Dioxide 26 mmol/L (22-30); Chloride 99.2 mmol/L (98-107); Glucose 143 mg/dL (75-100); Magnesium 1.9 mg/dL (1.7-2.3); Potassium 4.2 mmol/L (3.6-5.0); Sodium 137 mmol/L (137-145)
[2016-05-05] MEDS: AMARYL PO SCH (09:49)
[2016-05-05] MEDS: CORDARONE PO SCH (09:50)
[2016-05-05] MEDS: GLUCOPHAGE XR PO SCH (09:50)
[2016-05-05] MEDS: COREG PO SCH (09:50)
[2016-05-05] MEDS: CARDIZEM CD PO SCH (09:50)
[2016-05-05] MEDS: ZESTRIL PO SCH (09:50)
[2016-05-05] MEDS: BABY ASPIRIN PO SCH (09:50)
[2016-05-05] MEDS: LOVENOX SUB-Q SCH (11:06)
[2016-05-05] MEDS: PEPCID PO SCH (11:14)
--- NOTE | 2016-05-05 11:25 | Progress Note ---
Addendum entered and electronically signed by FREDDIE HADLEY MD 05/05/16 12:08: I have seen and examined the patient and agree with the documentation below. Original Note: Assessment and Plan Continue IV metoprolol until enteral intake is established. - Patient Problems (1) Acute and chronic respiratory failure Current Visit: Yes Status: Acute (2) COPD exacerbation Current Visit: Yes Status: Acute (3) Acute on chronic systolic heart failure Current Visit: Yes Status: Acute (4) Non-sustained ventricular tachycardia Current Visit: Yes Status: Acute (5) Paroxysmal atrial flutter Current Visit: Yes Status: Chronic (6) Ischemic cardiomyopathy Current Visit: Yes Status: Chronic (7) CAD (coronary artery disease) Current Visit: No Status: Chronic Qualifiers: Coronary Disease-Associated Artery/Lesion type: [place] artery (8) Hx of CABG Current Visit: No Status: Chronic (9) Anemia Current Visit: No Status: Chronic (10) Hypertension Current Visit: Yes Status: Chronic Qualifiers: Hypertension type: essential hypertension Qualified Code(s): I10 - Essential (primary) hypertension (11) Diabetes mellitus Current Visit: Yes Status: Chronic Qualifiers: Diabetes mellitus type: type 2 Subjective Date of service: 05/05/16 Principal diagnosis: Acute Hypoxemic Respiratory Failure; Acute COPD exacerbation Interval history: The patient is resting in bed. He appears somewhat restless. Sinus rhythm on the monitor. Objective Last Vital Signs Temp 98.4 F 05/05/16 08:05 Pulse 94 H 05/05/16 08:53 Resp 18 05/05/16 08:53 BP 110/68 05/05/16 08:05 Pulse Ox 97 05/05/16 08:54 - Physical Examination General: No Apparent Distress (restless) HEENT: Positive: PERRL, Mucus Membranes Moist Neck: Positive: neck supple, trachea midline Cardiac: Positive: Reg Rate and Rhythm, S1/S2 Lungs: Positive: clear to auscultation Neuro: Positive: Other (restless) Abdomen: Positive: Soft, Active Bowel Sounds. Negative: Tender, Distended Skin: Positive: Clear Musculoskeletal: No Pain, Normal Range of Motion Extremities: Present: normal. Absent: edema - Labs and Meds Comprehensive Metabolic Panel 05/05/16 Range/Units 07:28 Sodium 137 (137-145) mmol/L Potassium 4.2 (3.6-5.0) mmol/L Chloride 99.2 (98-107) mmol/L Carbon Dioxide 26 (22-30) mmol/L BUN 26 H (9-20) mg/dL Creatinine 0.9 (0.8-1.5) mg/dL Glucose 143 H (75-100) mg/dL Calcium 8.7 (8.4-10.2) mg/dL - Imaging and Cardiology Echo: report reviewed (EF 25 30% with mild aortic regurgitation) - Telemetry EKG Rhythm: Sinus Rhythm
[2016-05-05] MEDS: D5W 1,000 ML IV SCH (11:57)
--- NOTE | 2016-05-05 14:22 | Gastroenterology Progress Note ---
<LEELA GLOVER - Last Filed: 05/05/16 14:15> Assessment and Plan 1. Dysphagia 75 yo male with h/o COPD, afib, CAD, and personality disorder initially presenting with respiratory failure/copd exacerbation with development of AMS during hospitalization. Pateint is in restraints. GI consulted for PEG tube placement. Swallow eval per [employer] revealing that the patient did pass MBS, however speech observed that the patient had excessive coughing after dysphagia diet and he was not able to follow commands with cueing, therefore the recommendation was for fpc alternative nutrition.The patient remains high risk for pulling out the PEG tube resulting in possible complications. We will discuss with daughter risk vs benefits in attempt to obtain consent for PEG placement. Continue to hold Plavix. It was recommended to have Dobhoff placed for tube feedings, but he has apparently refused this per primary physicians note. Subjective Date of service: 05/05/16 Principal diagnosis: Acute Hypoxemic Respiratory Failure; Acute COPD exacerbation Interval history: Patient continues in 4 point restraints. Patient is unable to recall year. Objective - Constitutional Vitals: Temp Pulse Resp BP Pulse Ox 97.8 F 96 H 18 103/67 99 05/05/16 12:01 05/05/16 13:53 05/05/16 13:53 05/05/16 12:01 05/05/16 12:01 General appearance: no acute distress - EENT Eyes: EOM intact ENT: hearing decreased - Neck Neck: supple - Respiratory Respiratory: bilateral: diminished - Cardiovascular Rhythm: regular Heart Sounds: Present: S1 & S2 - Gastrointestinal General gastrointestinal: Present: soft, non-distended - Integumentary Integumentary: Present: warm, dry - Neurologic Neurological: other (Patient is in 4 point restraints. Unable to recall year. Does not follow all commands.) - Labs CBC & Chem 7: 05/04/16 08:38 05/05/16 07:28 Labs: Laboratory Results - last 24 hr 05/04/16 05/04/16 05/05/16 16:20 21:54 05:27 Sodium Potassium Chloride Carbon Dioxide Anion Gap BUN Creatinine Estimated GFR BUN/Creatinine Ratio Glucose POC Glucose 140 H 180 H 157 H Calcium Magnesium 05/05/16 07:28 Sodium 137 Potassium 4.2 Chloride 99.2 Carbon Dioxide 26 Anion Gap 16 BUN 26 H Creatinine 0.9 Estimated GFR > 60 BUN/Creatinine Ratio 28.88 Glucose 143 H POC Glucose Calcium 8.7 Magnesium 1.9 <SUNITA TAVARES R - Last Filed: 05/05/16 17:55> Assessment and Plan Pt s/p Dobhoff placement. Wheezing at times. Otherwise looks comfortable. Rec - will place G-tube if can get appropriate consent, based on Speech Path recommendations. Discussed with Dr. Khan, and notified her of intermittent wheeze. Subjective Date of service: 05/05/16 Objective - Constitutional Vitals: Temp Pulse Resp BP Pulse Ox 98.2 F 99 H 18 137/78 96 05/05/16 15:09 05/05/16 17:44 05/05/16 17:44 05/05/16 17:44 05/05/16 17:44 - Labs CBC & Chem 7: 05/04/16 08:38 05/05/16 07:28 Labs: Laboratory Results - last 24 hr 05/04/16 05/05/16 05/05/16 21:54 05:27 07:28 Sodium 137 Potassium 4.2 Chloride 99.2 Carbon Dioxide 26 Anion Gap 16 BUN 26 H Creatinine 0.9 Estimated GFR > 60 BUN/Creatinine Ratio 28.88 Glucose 143 H POC Glucose 180 H 157 H Calcium 8.7 Magnesium 1.9 05/05/16 05/05/16 11:27 17:09 Sodium Potassium Chloride Carbon Dioxide Anion Gap BUN Creatinine Estimated GFR BUN/Creatinine Ratio Glucose POC Glucose 131 H 196 H Calcium Magnesium
--- NOTE | 2016-05-05 16:26 | Progress Note ---
Assessment and Plan Assessment and plan: --Dysphagia , GI following , possible PEG placement Dobbhoff placement for feeds and medications Off Plavix for the procedure as requested by GI --Brief episodes of bradycardia Heartrate reasonable level Continue current management --Acute hypoxic/hypercapnic respiratory failure. Oxygen , titrate O2 sats more than 90% , BiPAP as needed. Nebulizers, IV antibiotics, supportive care, pulmonary following --Acute COPD exacerbation Oxygen nebulizers IV antibiotics and steroids --Atrial fibrillation. Continue beta blockers, amiodarone, Cardizem Cardiology following, adjust medications if bradycardia -- History of nonsustained V. tach Continue amiodarone per cardiology --Hypertension. Well-controlled, new current antihypertensives When necessary hydralazine --Hyperlipidemia. Stable on lipid-lowering medications Personality disorder/ agitation --Moderate protein calorie malnutrition ; Nutrition supplements, supportive care Consults and recommendations noted and appreciated Plan of care discussed with the patient as well as the nurse History Interval history: Patient seen and evaluated medical records reviewed Patient was very agitated and aggressive today security had to be called No patient is calm and composed Patient has been refusing Dobbhoff placement GI following Planning EGD once patient's restraints removed Hospitalist Physical - Constitutional Vitals: Temp Pulse Resp BP Pulse Ox 98.2 F 90 12 159/76 97 05/05/16 15:09 05/05/16 15:09 05/05/16 15:09 05/05/16 15:09 05/05/16 15:09 General appearance: Present: no acute distress, cachectic, disheveled, other ( chronically ill-looking) - EENT Eyes: Present: PERRL, EOM intact - Neck Neck: Present: supple, normal ROM - Respiratory Respiratory effort: normal Respiratory: bilateral: diminished, negative: rales, rhonchi, wheezing - Cardiovascular Rhythm: regular Heart Sounds: Present: S1 & S2 - Extremities Extremities: no ischemia, pulses intact, pulses symmetrical Peripheral Pulses: within normal limits - Abdominal General gastrointestinal: soft, non-tender, non-distended, normal bowel sounds - Integumentary Integumentary: Present: clear, warm - Psychiatric Psychiatric: appropriate mood/affect, cooperative - Neurologic Neurologic: CNII-XII intact, moves all extremities Results - Labs CBC & Chem 7: 05/04/16 08:38 05/05/16 07:28 Labs: Laboratory Last Values WBC 13.6 K/mm3 (4.5-11.0) H 05/04/16 08:38 RBC 5.18 M/mm3 (3.65-5.03) H 05/04/16 08:38 Hgb 11.4 gm/dl (11.8-15.2) L 05/04/16 08:38 Hct 39.8 % (35.5-45.6) 05/04/16 08:38 MCV 77 fl (84-94) L D 05/04/16 08:38 MCH 22 pg (28-32) L 05/04/16 08:38 MCHC 29 % (32-34) L 05/04/16 08:38 RDW 20.4 % (13.2-15.2) H 05/04/16 08:38 Plt Count 349 K/mm3 (140-440) 05/04/16 08:38 Lymph % (Auto) 10.2 % (13.4-35.0) L 05/04/16 08:38 [place] % (Auto) 14.9 % (0.0-7.3) H 05/04/16 08:38 Eos % (Auto) 0.1 % (0.0-4.3) 05/04/16 08:38 Baso % (Auto) 0.2 % (0.0-1.8) 05/04/16 08:38 Lymph # 1.4 K/mm3 (1.2-5.4) 05/04/16 08:38 [place] # 2.0 K/mm3 (0.0-0.8) H 05/04/16 08:38 Eos # 0.0 K/mm3 (0.0-0.4) 05/04/16 08:38 Baso # 0.0 K/mm3 (0.0-0.1) 05/04/16 08:38 Add Manual Diff Complete 04/29/16 07:18 Total Counted 100 04/29/16 07:18 Seg Neutrophils % 74.6 % (40.0-70.0) H 05/04/16 08:38 Seg Neuts % (Manual) 92.0 % (40.0-70.0) H 04/29/16 07:18 Band Neutrophils % 3.0 % 04/29/16 07:18 Lymphocytes % (Manual) 4.0 % (13.4-35.0) L 04/29/16 07:18 Reactive Lymphs % (Man) 0 % 04/29/16 07:18 Monocytes % (Manual) 1.0 % (0.0-7.3) 04/29/16 07:18 Eosinophils % (Manual) 0 % (0.0-4.3) 04/29/16 07:18 Basophils % (Manual) 0 % (0.0-1.8) 04/29/16 07:18 Metamyelocytes % 0 % 04/29/16 07:18 Myelocytes % 0 % 04/29/16 07:18 Promyelocytes % 0 % 04/29/16 07:18 Blast Cells % 0 % 04/29/16 07:18 Nucleated RBC % Not Reportable 04/29/16 07:18 Seg Neutrophils # 10.2 K/mm3 (1.8-7.7) H 05/04/16 08:38 Seg Neutrophils # Man 12.6 K/mm3 (1.8-7.7) H 04/29/16 07:18 Band Neutrophils # 0.4 K/mm3 04/29/16 07:18 Lymphocytes # (Manual) 0.5 K/mm3 (1.2-5.4) L 04/29/16 07:18 Abs React Lymphs (Man) 0.0 K/mm3 04/29/16 07:18 Monocytes # (Manual) 0.1 K/mm3 (0.0-0.8) 04/29/16 07:18 Eosinophils # (Manual) 0.0 K/mm3 (0.0-0.4) 04/29/16 07:18 Basophils # (Manual) 0.0 K/mm3 (0.0-0.1) 04/29/16 07:18 Metamyelocytes # 0.0 K/mm3 04/29/16 07:18 Myelocytes # 0.0 K/mm3 04/29/16 07:18 Promyelocytes # 0.0 K/mm3 04/29/16 07:18 Blast Cells # 0.0 K/mm3 04/29/16 07:18 WBC Morphology Not Reportable 04/29/16 07:18 Hypersegmented Neuts Not Reportable 04/29/16 07:18 Hyposegmented Neuts Not Reportable 04/29/16 07:18 Hypogranular Neuts Not Reportable 04/29/16 07:18 Smudge Cells Not Reportable 04/29/16 07:18 Toxic Granulation Not Reportable 04/29/16 07:18 Toxic Vacuolation Not Reportable 04/29/16 07:18 Dohle Bodies Not Reportable 04/29/16 07:18 Pelger-Huet Anomaly Not Reportable 04/29/16 07:18 Jose L Rods Not Reportable 04/29/16 07:18 Platelet Estimate Not Reportable 04/29/16 07:18 Clumped Platelets Not Reportable 04/29/16 07:18 Plt Clumps, EDTA Not Reportable 04/29/16 07:18 Large Platelets Not Reportable 04/29/16 07:18 Giant Platelets Not Reportable 04/29/16 07:18 Platelet Satelliting Not Reportable 04/29/16 07:18 Plt Morphology Comment Not Reportable 04/29/16 07:18 RBC Morphology Not Reportable 04/29/16 07:18 Dimorphic RBCs Not Reportable 04/29/16 07:18 Polychromasia Not Reportable 04/29/16 07:18 Hypochromasia Not Reportable 04/29/16 07:18 Poikilocytosis Few 04/29/16 07:18 Anisocytosis 1+ 04/29/16 07:18 Microcytosis Not Reportable 04/29/16 07:18 Macrocytosis Not Reportable 04/29/16 07:18 Spherocytes Not Reportable 04/29/16 07:18 Pappenheimer Bodies Not Reportable 04/29/16 07:18 Sickle Cells Not Reportable 04/29/16 07:18 Target Cells Not Reportable 04/29/16 07:18 Tear Drop Cells Not Reportable 04/29/16 07:18 Ovalocytes Not Reportable 04/29/16 07:18 Helmet Cells Not Reportable 04/29/16 07:18 [place] Bodies Not Reportable 04/29/16 07:18 [place] Rings Not Reportable 04/29/16 07:18 [place] Cells Not Reportable 04/29/16 07:18 Bite Cells Not Reportable 04/29/16 07:18 Crenated Cell Not Reportable 04/29/16 07:18 Elliptocytes Not Reportable 04/29/16 07:18 Acanthocytes (Spur) Not Reportable 04/29/16 07:18 Rouleaux Not Reportable 04/29/16 07:18 Hemoglobin C Crystals Not Reportable 04/29/16 07:18 Schistocytes Not Reportable 04/29/16 07:18 Malaria parasites Not Reportable 04/29/16 07:18 Juan R Bodies Not Reportable 04/29/16 07:18 Hem Pathologist Commnt No 04/29/16 07:18 POC ABG pH 7.455 (7.35-7.45) H 04/28/16 11:44 POC ABG pCO2 40.0 (35-45) 04/28/16 11:44 POC ABG pO2 106 (80-105) H 04/28/16 11:44 POC ABG HCO3 28.1 04/28/16 11:44 POC ABG Total CO2 29 04/28/16 11:44 POC ABG O2 Sat 98 04/28/16 11:44 POC ABG Base Excess 4 04/28/16 11:44 FiO2 35 % 04/28/16 11:44 Sodium 137 mmol/L (137-145) 05/05/16 07:28 Potassium 4.2 mmol/L (3.6-5.0) 05/05/16 07:28 Chloride 99.2 mmol/L (98-107) 05/05/16 07:28 Carbon Dioxide 26 mmol/L (22-30) 05/05/16 07:28 Anion Gap 16 mmol/L 05/05/16 07:28 BUN 26 mg/dL (9-20) H 05/05/16 07:28 Creatinine 0.9 mg/dL (0.8-1.5) 05/05/16 07:28 Estimated GFR > 60 ml/min 05/05/16 07:28 BUN/Creatinine Ratio 28.88 % 05/05/16 07:28 Glucose 143 mg/dL (75-100) H 05/05/16 07:28 POC Glucose 131 (70-105) H 05/05/16 11:27 Lactic Acid 0.8 mmol/L (0.7-2.0) 04/27/16 13:06 Calcium 8.7 mg/dL (8.4-10.2) 05/05/16 07:28 Magnesium 1.9 mg/dL (1.7-2.3) 05/05/16 07:28 Total Bilirubin 1.6 mg/dL (0.1-1.2) H 05/03/16 18:40 AST 15 units/L (5-40) 05/03/16 18:40 ALT 9 units/L (7-56) 05/03/16 18:40 Alkaline Phosphatase 77 units/L (35-129) 05/03/16 18:40 Troponin T 0.026 ng/mL (0.00-0.029) 04/27/16 13:06 NT-Pro-B Natriuret Pep 818.3 pg/mL (0-900) 04/27/16 13:06 Total Protein 6.4 g/dL (6.3-8.2) 05/03/16 18:40 Albumin 3.2 g/dL (3.9-5) L 05/03/16 18:40 Albumin/Globulin Ratio 1.0 % 05/03/16 18:40 Urine Color Yellow (Yellow) 04/27/16 14:00 Urine Turbidity Slightly-cloudy (Clear) 04/27/16 14:00 Urine pH 5.0 (5.0-7.0) 04/27/16 14:00 Ur Specific [place] 1.019 (1.003-1.030) 04/27/16 14:00 Urine Protein 100 mg/dl mg/dL (Negative) 04/27/16 14:00 Urine Glucose (UA) Neg mg/dL (Negative) 04/27/16 14:00 Urine Ketones Neg mg/dL (Negative) 04/27/16 14:00 Urine Blood Neg (Negative) 04/27/16 14:00 Urine Nitrite Neg (Negative) 04/27/16 14:00 Urine Bilirubin Neg (Negative) 04/27/16 14:00 Urine Urobilinogen < 2.0 mg/dL (<2.0) 04/27/16 14:00 Ur Leukocyte Esterase Neg (Negative) 04/27/16 14:00 Urine WBC (Auto) 1.0 /HPF (0.0-6.0) 04/27/16 14:00 Urine RBC (Auto) 1.0 /HPF (0.0-6.0) 04/27/16 14:00 Urine Bacteria (Auto) 1+ /HPF (Negative) 04/27/16 14:00 Hyaline Casts 1 /LPF 04/27/16 14:00 Urine Mucus Few /HPF 04/27/16 14:00
[2016-05-05] MEDS ORDERED: PANCREAZE DR 10,500 UNIT FEEDTUBE PRN (16:51)
[2016-05-05] MEDS ORDERED: SODIUM BICARBONATE FEEDTUBE PRN (16:51)
[2016-05-05] MEDS ORDERED: SIMPLE SYRUP FEEDTUBE PRN ×2 (16:51)
--- NOTE | 2016-05-05 17:54 | XRay Report ---
FINAL REPORT PROCEDURE: XR ABDOMEN 1V AP TECHNIQUE: Abdominal radiograph, single supine AP view. HISTORY: Confirm nasogastric tube placement. COMPARISON: No prior studies are available for comparison. FINDINGS: Bowel gas pattern:Mildly and diffusely air-filled bowel with contrast seen, probably in the colon. Masses or calcifications:None. Bony structures:Osteopenia with degenerative changes of the spine. Age indeterminate compression in the lower thoracic/upper lumbar spine. Healed left lower rib fractures. Post sternotomy change. Other:Enteric tube tip in the proximal stomach. Aortic calcification and tortuosity. Hyperinflation. Subtle interstitial prominence. IMPRESSION: Enteric tube tip in the proximal stomach. Mildly and diffusely air-filled bowel, consider ileus. Consider followup radiographs if there is continued clinical concern. Hyperinflation. Aortic calcification and tortuosity. Consider correlation with chest radiograph.
[2016-05-05] MEDS: SINGULAIR PO SCH (18:39)
[2016-05-05] MEDS: XALATAN 0.005% OU SCH (20:12)
--- NOTE | 2016-05-05 21:49 | Progress Note ---
Assessment and Plan Patient sleeping at this time on 3 litres O2. O2 satuaration 98%.Not responding to the verbal stimuli. Patient weak.No acute respiratory distress. - Patient Problems (1) COPD exacerbation Current Visit: Yes Status: Acute Plan to address problem: O2 supplementation. Albuterol/atrovent aerosol treatments q 6 hours. Continue I?V solumedral. (2) Acute respiratory failure with hypoxia and hypercapnia Current Visit: Yes Status: Acute Plan to address problem: O2 supplementation. Albuterol/atrovent aerosol treatments. Continue I/V solumedral. Continue S/C Lovenox. Continue famotidine. (3) Atrial fibrillation with rapid ventricular response Current Visit: No Status: Acute (4) CAD (coronary artery disease) Current Visit: No Status: Chronic Qualifiers: Coronary Disease-Associated Artery/Lesion type: [place] artery (5) Diabetes mellitus Current Visit: Yes Status: Chronic Qualifiers: Diabetes mellitus type: type 2 Plan to address problem: Management as per primary care. Subjective Date of service: 05/05/16 Principal diagnosis: Acute Hypoxemic Respiratory Failure; Acute COPD exacerbation Interval history: Patient sleeping at this time on 3 litres O2. O2 satuaration 98%. Not responding to verbal stimuli .Patient weak.No acute respiratory distress. Objective Vital Signs - 12hr 05/05/16 05/05/16 05/05/16 12:01 13:53 15:09 Temperature 97.8 F 98.2 F Pulse Rate [ 96 H Anterior Bilateral Throughout] Pulse Rate [ Bilateral] Pulse Rate [ 101 H 90 Right Radial] Pulse Rate [ Right] Respiratory 15 12 Rate Respiratory 18 Rate [Anterior Bilateral Throughout] Respiratory Rate [Bilateral ] Blood Pressure 103/67 159/76 [Right Arm] O2 Sat by Pulse 99 97 Oximetry 05/05/16 05/05/16 05/05/16 17:44 19:57 20:00 Temperature 97.6 F Pulse Rate [ 90 Anterior Bilateral Throughout] Pulse Rate [ 88 Bilateral] Pulse Rate [ 94 H Right Radial] Pulse Rate [ 99 H Right] Respiratory 18 16 Rate Respiratory 22 Rate [Anterior Bilateral Throughout] Respiratory 18 Rate [Bilateral ] Blood Pressure 137/78 109/62 [Right Arm] O2 Sat by Pulse 96 96 Oximetry 05/05/16 21:11 Temperature Pulse Rate [ Anterior Bilateral Throughout] Pulse Rate [ Bilateral] Pulse Rate [ Right Radial] Pulse Rate [ Right] Respiratory Rate Respiratory Rate [Anterior Bilateral Throughout] Respiratory Rate [Bilateral ] Blood Pressure [Right Arm] O2 Sat by Pulse 98 Oximetry Constitutional: no acute distress, asleep Eyes: non-icteric ENT: oropharynx moist Neck: supple Effort: mildly labored Ascultation: Bilateral: diminished breath sounds, rhonchi (bases) Cardiovascular: regular rate and rhythm Gastrointestinal: normoactive bowel sounds, soft, non-tender, non-distended Integumentary: normal Extremities: no cyanosis, pulses normal, no ischemia or petechiae Neurologic: non-focal exam (grossly), pupils equal and round Psychiatric: other (dementia element) CBC and BMP: 05/04/16 08:38 05/05/16 07:28 ABG, PT/INR, D-dimer: ABG POC ABG pH 7.455 (7.35-7.45) H 04/28/16 11:44 POC ABG pCO2 40.0 (35-45) 04/28/16 11:44 POC ABG pO2 106 (80-105) H 04/28/16 11:44 POC ABG HCO3 28.1 04/28/16 11:44 POC ABG Total CO2 29 04/28/16 11:44 POC ABG O2 Sat 98 04/28/16 11:44 Abnormal lab findings: Abnormal Labs 04/28/16 04/28/16 04/28/16 06:26 06:26 11:44 WBC RBC Hgb 8.9 L Hct 29.5 L MCV 74 L MCH 22 L MCHC 30 L RDW 20.3 H Plt Count 449 H Lymph % (Auto) 11.0 L [place] % (Auto) Lymph # 1.0 L [place] # Seg Neutrophils % 87.0 H Seg Neuts % (Manual) Lymphocytes % (Manual) Seg Neutrophils # 8.1 H Seg Neutrophils # Man Lymphocytes # (Manual) POC ABG pH 7.455 H POC ABG pO2 106 H Potassium 5.3 H Carbon Dioxide BUN 26 H Glucose 130 H POC Glucose Total Bilirubin Albumin 3.3 L 04/28/16 04/29/16 04/29/16 17:47 07:18 07:18 WBC 13.7 H RBC Hgb 8.3 L Hct 27.5 L MCV 72 L MCH 22 L MCHC 30 L RDW 19.8 H Plt Count Lymph % (Auto) [place] % (Auto) Lymph # [place] # Seg Neutrophils % Seg Neuts % (Manual) 92.0 H Lymphocytes % (Manual) 4.0 L Seg Neutrophils # Seg Neutrophils # Man 12.6 H Lymphocytes # (Manual) 0.5 L POC ABG pH POC ABG pO2 Potassium Carbon Dioxide BUN 29 H Glucose 140 H POC Glucose 177 H Total Bilirubin Albumin 04/30/16 05/01/16 05/01/16 06:37 11:44 11:44 WBC 14.9 H RBC Hgb 9.4 L Hct 31.2 L MCV 74 L MCH 22 L MCHC 30 L RDW 20.8 H Plt Count Lymph % (Auto) 6.1 L [place] % (Auto) 10.0 H Lymph # 0.9 L [place] # 1.5 H Seg Neutrophils % 83.8 H Seg Neuts % (Manual) Lymphocytes % (Manual) Seg Neutrophils # 12.5 H Seg Neutrophils # Man Lymphocytes # (Manual) POC ABG pH POC ABG pO2 Potassium 3.5 L D Carbon Dioxide BUN 33 H Glucose 70 L POC Glucose 63 L Total Bilirubin Albumin 05/02/16 05/02/16 05/02/16 05:44 07:36 07:36 WBC RBC Hgb 10.5 L Hct 34.4 L MCV 73 L MCH 22 L MCHC 31 L RDW 19.9 H Plt Count Lymph % (Auto) 4.8 L [place] % (Auto) Lymph # 0.4 L [place] # Seg Neutrophils % 87.7 H Seg Neuts % (Manual) Lymphocytes % (Manual) Seg Neutrophils # Seg Neutrophils # Man Lymphocytes # (Manual) POC ABG pH POC ABG pO2 Potassium Carbon Dioxide BUN 28 H Glucose 180 H POC Glucose 175 H Total Bilirubin Albumin 05/03/16 05/03/16 05/04/16 18:40 22:17 08:38 WBC 13.6 H RBC 5.18 H Hgb 11.4 L Hct MCV 77 L D MCH 22 L MCHC 29 L RDW 20.4 H Plt Count Lymph % (Auto) 10.2 L [place] % (Auto) 14.9 H Lymph # [place] # 2.0 H Seg Neutrophils % 74.6 H Seg Neuts % (Manual) Lymphocytes % (Manual) Seg Neutrophils # 10.2 H Seg Neutrophils # Man Lymphocytes # (Manual) POC ABG pH POC ABG pO2 Potassium Carbon Dioxide BUN 30 H Glucose 54 L POC Glucose 64 L Total Bilirubin 1.6 H Albumin 3.2 L 05/04/16 05/04/16 05/04/16 08:38 16:20 21:54 WBC RBC Hgb Hct MCV MCH MCHC RDW Plt Count Lymph % (Auto) [place] % (Auto) Lymph # [place] # Seg Neutrophils % Seg Neuts % (Manual) Lymphocytes % (Manual) Seg Neutrophils # Seg Neutrophils # Man Lymphocytes # (Manual) POC ABG pH POC ABG pO2 Potassium Carbon Dioxide 21 L BUN 30 H Glucose POC Glucose 140 H 180 H Total Bilirubin Albumin 05/05/16 05/05/16 05/05/16 05:27 07:28 11:27 WBC RBC Hgb Hct MCV MCH MCHC RDW Plt Count Lymph % (Auto) [place] % (Auto) Lymph # [place] # Seg Neutrophils % Seg Neuts % (Manual) Lymphocytes % (Manual) Seg Neutrophils # Seg Neutrophils # Man Lymphocytes # (Manual) POC ABG pH POC ABG pO2 Potassium Carbon Dioxide BUN 26 H Glucose 143 H POC Glucose 157 H 131 H Total Bilirubin Albumin 05/05/16 05/05/16 17:09 20:47 WBC RBC Hgb Hct MCV MCH MCHC RDW Plt Count Lymph % (Auto) [place] % (Auto) Lymph # [place] # Seg Neutrophils % Seg Neuts % (Manual) Lymphocytes % (Manual) Seg Neutrophils # Seg Neutrophils # Man Lymphocytes # (Manual) POC ABG pH POC ABG pO2 Potassium Carbon Dioxide BUN Glucose POC Glucose 196 H 184 H Total Bilirubin Albumin
[2016-05-06] MEDS: DUONEB 0.5 MG-3 MG/3 ML SOLN IH SCH ×4 (01:09→19:29)
[2016-05-06] MEDS: CORDARONE PO SCH ×2 (01:57→10:37)
[2016-05-06] MEDS: REMERON PO SCH ×2 (01:58→23:01)
[2016-05-06] MEDS: GLUCOPHAGE XR PO SCH ×3 (01:58→23:00)
[2016-05-06] MEDS: COREG PO SCH ×2 (01:58→10:38)
[2016-05-06] MEDS: PEPCID PO SCH ×3 (01:58→23:01)
[2016-05-06] MEDS: LOPRESSOR IV SCH ×4 (01:59→18:00)
[2016-05-06] MEDS: HALDOL IM SCH ×7 (02:24→18:00)
[2016-05-06] MEDS ORDERED: SODIUM BICARBONATE FEEDTUBE PRN (10:07)
[2016-05-06] MEDS ORDERED: PANCREAZE DR 10,500 UNIT FEEDTUBE PRN (10:07)
[2016-05-06] MEDS ORDERED: SIMPLE SYRUP FEEDTUBE PRN ×2 (10:07)
[2016-05-06] MEDS ORDERED: NACL 0.9% 1000 ML 1,000 ML ONE (10:25)
[2016-05-06] MEDS: CARDIZEM CD PO SCH (10:37)
[2016-05-06] MEDS: BABY ASPIRIN PO SCH (10:37)
[2016-05-06] MEDS: AMARYL PO SCH (10:37)
[2016-05-06] MEDS: LOVENOX SUB-Q SCH (10:38)
[2016-05-06] MEDS: ZESTRIL PO SCH (10:43)
--- NOTE | 2016-05-06 11:05 | Progress Note ---
Addendum entered and electronically signed by FREDDIE HADLEY MD 05/06/16 12:49: I have seen and examined the patient and agree with the documentation below. Original Note: Assessment and Plan Continue IV metoprolol until enteral intake is established. - Patient Problems (1) Acute and chronic respiratory failure Current Visit: Yes Status: Acute (2) COPD exacerbation Current Visit: Yes Status: Acute (3) Acute on chronic systolic heart failure Current Visit: Yes Status: Acute (4) Non-sustained ventricular tachycardia Current Visit: Yes Status: Acute (5) Paroxysmal atrial flutter Current Visit: Yes Status: Chronic (6) Ischemic cardiomyopathy Current Visit: Yes Status: Chronic (7) CAD (coronary artery disease) Current Visit: No Status: Chronic Qualifiers: Coronary Disease-Associated Artery/Lesion type: [place] artery (8) Hx of CABG Current Visit: No Status: Chronic (9) Anemia Current Visit: No Status: Chronic (10) Hypertension Current Visit: Yes Status: Chronic Qualifiers: Hypertension type: essential hypertension Qualified Code(s): I10 - Essential (primary) hypertension (11) Diabetes mellitus Current Visit: Yes Status: Chronic Qualifiers: Diabetes mellitus type: type 2 Subjective Date of service: 05/06/16 Principal diagnosis: Acute Hypoxemic Respiratory Failure; Acute COPD exacerbation Interval history: The patient is resting in bed. No acute distress noted. Sinus rhythm on the monitor. Objective Last Vital Signs Temp 98.0 F 05/06/16 08:29 Pulse 100 H 05/06/16 08:29 Resp 20 05/06/16 08:29 BP 137/74 05/06/16 08:29 Pulse Ox 99 05/06/16 08:29 - Physical Examination General: No Apparent Distress HEENT: Positive: PERRL, Mucus Membranes Moist Neck: Positive: neck supple, trachea midline Cardiac: Positive: Reg Rate and Rhythm, S1/S2 Lungs: Positive: Wheezes Neuro: Positive: Other (appears somewhat confused) Abdomen: Positive: Soft, Active Bowel Sounds. Negative: Tender, Distended Skin: Positive: Clear Incision: Cardiac Cath Site Musculoskeletal: No Pain, Normal Range of Motion Extremities: Present: normal. Absent: edema - Imaging and Cardiology Echo: report reviewed (EF 25 30% with mild aortic regurgitation) - Telemetry EKG Rhythm: Sinus Rhythm
--- NOTE | 2016-05-06 15:14 | Gastroenterology Progress Note ---
Assessment and Plan 1. Dysphagia Patient is now out of restraints. DH in place with tube feeding. Case management speaking with risk management to evaluate situation for consent for possible PEG tube placement. Plavix still on hold. Person to notify per chart , Dona Lombardi, is not related to the patient and the only family is an estranged daughter in [place]. Will follow up regarding consent. Subjective Date of service: 05/06/16 Principal diagnosis: Acute Hypoxemic Respiratory Failure; Acute COPD exacerbation Interval history: Receiving Aerosol breathing treatment. Lethargic. Objective - Constitutional Vitals: Temp Pulse Resp BP Pulse Ox 97.2 F L 76 20 137/62 99 05/06/16 11:43 05/06/16 11:43 05/06/16 11:43 05/06/16 11:43 05/06/16 08:29 General appearance: temporal muscle wasting - EENT Eyes: EOM intact ENT: hearing decreased - Respiratory Respiratory: bilateral: diminished - Cardiovascular Rhythm: regular - Gastrointestinal General gastrointestinal: Present: non-tender, non-distended - Integumentary Integumentary: Present: warm, dry - Psychiatric Psychiatric: cooperative - Labs CBC & Chem 7: 05/04/16 08:38 05/05/16 07:28 Labs: Laboratory Results - last 24 hr 05/05/16 05/05/16 05/05/16 11:27 17:09 20:47 POC Glucose 131 H 196 H 184 H 05/06/16 05/06/16 05:53 11:07 POC Glucose 95 90
--- NOTE | 2016-05-06 16:23 | Progress Note ---
Assessment and Plan Assessment and plan: --Dysphagia , GI following , possible PEG placement [facility] in place, continue tube feeds --Brief episodes of bradycardia, Resolved --Acute hypoxic/hypercapnic respiratory failure/acute exacerbation of COPD Oxygen , titrate O2 sats more than 90% , BiPAP as needed. Nebulizers, IV antibiotics, supportive care, pulmonary following --Atrial fibrillation. Continue beta blockers, amiodarone, Cardizem Cardiology following, -- History of nonsustained V. tach on amiodarone --Hypertension. Well-controlled, stable on medications When necessary hydralazine --Hyperlipidemia. Stable on lipid-lowering medications --Personality disorder/ agitation Today patient is comfortable in no agitation or aggression Follow psych evaluation and recommendations --Moderate protein calorie malnutrition ; Nutrition supplements, supportive care Once PEG is placed patient will be discharged if stable Plan of care discussed with the patient's nurse as well as the case management I discussed extensively with the Dr. Leonard GI History Interval history: Patient seen and evaluated in his room this morning medical records reviewed Receiving tube feeding through [facility] GI evaluation and recommendations noted possible PICC placement once the consent is obtained Patient is minimally communicative not in acute distress No new events reported by the nursing staff Vital signs reviewed stable Hospitalist Physical - Constitutional Vitals: Temp Pulse Resp BP Pulse Ox 97.2 F L 76 20 137/62 99 05/06/16 11:43 05/06/16 11:43 05/06/16 11:43 05/06/16 11:43 05/06/16 08:29 General appearance: Present: no acute distress, cachectic, disheveled, other ( chronically ill-looking) - EENT Eyes: Present: PERRL, EOM intact - Neck Neck: Present: supple, normal ROM - Respiratory Respiratory effort: normal Respiratory: bilateral: diminished, negative: rales, rhonchi, wheezing - Cardiovascular Rhythm: regular Heart Sounds: Present: S1 & S2 - Extremities Extremities: no ischemia, pulses intact, pulses symmetrical Peripheral Pulses: within normal limits - Abdominal General gastrointestinal: soft, non-tender, non-distended, normal bowel sounds - Integumentary Integumentary: Present: clear, warm - Psychiatric Psychiatric: appropriate mood/affect, cooperative - Neurologic Neurologic: CNII-XII intact, moves all extremities Results - Labs CBC & Chem 7: 05/04/16 08:38 05/05/16 07:28 Labs: Laboratory Last Values WBC 13.6 K/mm3 (4.5-11.0) H 05/04/16 08:38 RBC 5.18 M/mm3 (3.65-5.03) H 05/04/16 08:38 Hgb 11.4 gm/dl (11.8-15.2) L 05/04/16 08:38 Hct 39.8 % (35.5-45.6) 05/04/16 08:38 MCV 77 fl (84-94) L D 05/04/16 08:38 MCH 22 pg (28-32) L 05/04/16 08:38 MCHC 29 % (32-34) L 05/04/16 08:38 RDW 20.4 % (13.2-15.2) H 05/04/16 08:38 Plt Count 349 K/mm3 (140-440) 05/04/16 08:38 Lymph % (Auto) 10.2 % (13.4-35.0) L 05/04/16 08:38 [place] % (Auto) 14.9 % (0.0-7.3) H 05/04/16 08:38 Eos % (Auto) 0.1 % (0.0-4.3) 05/04/16 08:38 Baso % (Auto) 0.2 % (0.0-1.8) 05/04/16 08:38 Lymph # 1.4 K/mm3 (1.2-5.4) 05/04/16 08:38 [place] # 2.0 K/mm3 (0.0-0.8) H 05/04/16 08:38 Eos # 0.0 K/mm3 (0.0-0.4) 05/04/16 08:38 Baso # 0.0 K/mm3 (0.0-0.1) 05/04/16 08:38 Add Manual Diff Complete 04/29/16 07:18 Total Counted 100 04/29/16 07:18 Seg Neutrophils % 74.6 % (40.0-70.0) H 05/04/16 08:38 Seg Neuts % (Manual) 92.0 % (40.0-70.0) H 04/29/16 07:18 Band Neutrophils % 3.0 % 04/29/16 07:18 Lymphocytes % (Manual) 4.0 % (13.4-35.0) L 04/29/16 07:18 Reactive Lymphs % (Man) 0 % 04/29/16 07:18 Monocytes % (Manual) 1.0 % (0.0-7.3) 04/29/16 07:18 Eosinophils % (Manual) 0 % (0.0-4.3) 04/29/16 07:18 Basophils % (Manual) 0 % (0.0-1.8) 04/29/16 07:18 Metamyelocytes % 0 % 04/29/16 07:18 Myelocytes % 0 % 04/29/16 07:18 Promyelocytes % 0 % 04/29/16 07:18 Blast Cells % 0 % 04/29/16 07:18 Nucleated RBC % Not Reportable 04/29/16 07:18 Seg Neutrophils # 10.2 K/mm3 (1.8-7.7) H 05/04/16 08:38 Seg Neutrophils # Man 12.6 K/mm3 (1.8-7.7) H 04/29/16 07:18 Band Neutrophils # 0.4 K/mm3 04/29/16 07:18 Lymphocytes # (Manual) 0.5 K/mm3 (1.2-5.4) L 04/29/16 07:18 Abs React Lymphs (Man) 0.0 K/mm3 04/29/16 07:18 Monocytes # (Manual) 0.1 K/mm3 (0.0-0.8) 04/29/16 07:18 Eosinophils # (Manual) 0.0 K/mm3 (0.0-0.4) 04/29/16 07:18 Basophils # (Manual) 0.0 K/mm3 (0.0-0.1) 04/29/16 07:18 Metamyelocytes # 0.0 K/mm3 04/29/16 07:18 Myelocytes # 0.0 K/mm3 04/29/16 07:18 Promyelocytes # 0.0 K/mm3 04/29/16 07:18 Blast Cells # 0.0 K/mm3 04/29/16 07:18 WBC Morphology Not Reportable 04/29/16 07:18 Hypersegmented Neuts Not Reportable 04/29/16 07:18 Hyposegmented Neuts Not Reportable 04/29/16 07:18 Hypogranular Neuts Not Reportable 04/29/16 07:18 Smudge Cells Not Reportable 04/29/16 07:18 Toxic Granulation Not Reportable 04/29/16 07:18 Toxic Vacuolation Not Reportable 04/29/16 07:18 Dohle Bodies Not Reportable 04/29/16 07:18 Pelger-Huet Anomaly Not Reportable 04/29/16 07:18 Jose L Rods Not Reportable 04/29/16 07:18 Platelet Estimate Not Reportable 04/29/16 07:18 Clumped Platelets Not Reportable 04/29/16 07:18 Plt Clumps, EDTA Not Reportable 04/29/16 07:18 Large Platelets Not Reportable 04/29/16 07:18 Giant Platelets Not Reportable 04/29/16 07:18 Platelet Satelliting Not Reportable 04/29/16 07:18 Plt Morphology Comment Not Reportable 04/29/16 07:18 RBC Morphology Not Reportable 04/29/16 07:18 Dimorphic RBCs Not Reportable 04/29/16 07:18 Polychromasia Not Reportable 04/29/16 07:18 Hypochromasia Not Reportable 04/29/16 07:18 Poikilocytosis Few 04/29/16 07:18 Anisocytosis 1+ 04/29/16 07:18 Microcytosis Not Reportable 04/29/16 07:18 Macrocytosis Not Reportable 04/29/16 07:18 Spherocytes Not Reportable 04/29/16 07:18 Pappenheimer Bodies Not Reportable 04/29/16 07:18 Sickle Cells Not Reportable 04/29/16 07:18 Target Cells Not Reportable 04/29/16 07:18 Tear Drop Cells Not Reportable 04/29/16 07:18 Ovalocytes Not Reportable 04/29/16 07:18 Helmet Cells Not Reportable 04/29/16 07:18 [place] Bodies Not Reportable 04/29/16 07:18 [place] Rings Not Reportable 04/29/16 07:18 [place] Cells Not Reportable 04/29/16 07:18 Bite Cells Not Reportable 04/29/16 07:18 Crenated Cell Not Reportable 04/29/16 07:18 Elliptocytes Not Reportable 04/29/16 07:18 Acanthocytes (Spur) Not Reportable 04/29/16 07:18 Rouleaux Not Reportable 04/29/16 07:18 Hemoglobin C Crystals Not Reportable 04/29/16 07:18 Schistocytes Not Reportable 04/29/16 07:18 Malaria parasites Not Reportable 04/29/16 07:18 Juan R Bodies Not Reportable 04/29/16 07:18 Hem Pathologist Commnt No 04/29/16 07:18 POC ABG pH 7.455 (7.35-7.45) H 04/28/16 11:44 POC ABG pCO2 40.0 (35-45) 04/28/16 11:44 POC ABG pO2 106 (80-105) H 04/28/16 11:44 POC ABG HCO3 28.1 04/28/16 11:44 POC ABG Total CO2 29 04/28/16 11:44 POC ABG O2 Sat 98 04/28/16 11:44 POC ABG Base Excess 4 04/28/16 11:44 FiO2 35 % 04/28/16 11:44 Sodium 137 mmol/L (137-145) 05/05/16 07:28 Potassium 4.2 mmol/L (3.6-5.0) 05/05/16 07:28 Chloride 99.2 mmol/L (98-107) 05/05/16 07:28 Carbon Dioxide 26 mmol/L (22-30) 05/05/16 07:28 Anion Gap 16 mmol/L 05/05/16 07:28 BUN 26 mg/dL (9-20) H 05/05/16 07:28 Creatinine 0.9 mg/dL (0.8-1.5) 05/05/16 07:28 Estimated GFR > 60 ml/min 05/05/16 07:28 BUN/Creatinine Ratio 28.88 % 05/05/16 07:28 Glucose 143 mg/dL (75-100) H 05/05/16 07:28 POC Glucose 69 (70-105) L 05/06/16 16:14 Lactic Acid 0.8 mmol/L (0.7-2.0) 04/27/16 13:06 Calcium 8.7 mg/dL (8.4-10.2) 05/05/16 07:28 Magnesium 1.9 mg/dL (1.7-2.3) 05/05/16 07:28 Total Bilirubin 1.6 mg/dL (0.1-1.2) H 05/03/16 18:40 AST 15 units/L (5-40) 05/03/16 18:40 ALT 9 units/L (7-56) 05/03/16 18:40 Alkaline Phosphatase 77 units/L (35-129) 05/03/16 18:40 Troponin T 0.026 ng/mL (0.00-0.029) 04/27/16 13:06 NT-Pro-B Natriuret Pep 818.3 pg/mL (0-900) 04/27/16 13:06 Total Protein 6.4 g/dL (6.3-8.2) 05/03/16 18:40 Albumin 3.2 g/dL (3.9-5) L 05/03/16 18:40 Albumin/Globulin Ratio 1.0 % 05/03/16 18:40 Urine Color Yellow (Yellow) 04/27/16 14:00 Urine Turbidity Slightly-cloudy (Clear) 04/27/16 14:00 Urine pH 5.0 (5.0-7.0) 04/27/16 14:00 Ur Specific [place] 1.019 (1.003-1.030) 04/27/16 14:00 Urine Protein 100 mg/dl mg/dL (Negative) 04/27/16 14:00 Urine Glucose (UA) Neg mg/dL (Negative) 04/27/16 14:00 Urine Ketones Neg mg/dL (Negative) 04/27/16 14:00 Urine Blood Neg (Negative) 04/27/16 14:00 Urine Nitrite Neg (Negative) 04/27/16 14:00 Urine Bilirubin Neg (Negative) 04/27/16 14:00 Urine Urobilinogen < 2.0 mg/dL (<2.0) 04/27/16 14:00 Ur Leukocyte Esterase Neg (Negative) 04/27/16 14:00 Urine WBC (Auto) 1.0 /HPF (0.0-6.0) 04/27/16 14:00 Urine RBC (Auto) 1.0 /HPF (0.0-6.0) 04/27/16 14:00 Urine Bacteria (Auto) 1+ /HPF (Negative) 04/27/16 14:00 Hyaline Casts 1 /LPF 04/27/16 14:00 Urine Mucus Few /HPF 04/27/16 14:00
[2016-05-06] MEDS: XALATAN 0.005% OU SCH (18:00)
--- NOTE | 2016-05-06 18:04 | Progress Note ---
Assessment and Plan Patient sleeping at this time on 3 litres O2. O2 satuaration 99%.Not responding to the verbal stimuli. Patient weak.No acute respiratory distress. - Patient Problems (1) COPD exacerbation Current Visit: Yes Status: Acute Plan to address problem: O2 supplementation. Albuterol/atrovent aerosol treatments q 6 hours. Continue I?V solumedral. (2) Acute respiratory failure with hypoxia and hypercapnia Current Visit: Yes Status: Acute Plan to address problem: O2 supplementation. Albuterol/atrovent aerosol treatments. Continue I/V solumedral. Continue S/C Lovenox. Continue famotidine. (3) Atrial fibrillation with rapid ventricular response Current Visit: No Status: Acute (4) CAD (coronary artery disease) Current Visit: No Status: Chronic Qualifiers: Coronary Disease-Associated Artery/Lesion type: [place] artery Plan to address problem: Patient S/P CABG. Management as per cardiology. (5) Diabetes mellitus Current Visit: Yes Status: Chronic Qualifiers: Diabetes mellitus type: type 2 Plan to address problem: Management as per primary care. Subjective Date of service: 05/06/16 Principal diagnosis: Acute Hypoxemic Respiratory Failure; Acute COPD exacerbation Interval history: Patient sleeping at this time on 3 litres O2. O2 satuaration 99%. Not responding to verbal stimuli .Patient weak.No acute respiratory distress. Objective Vital Signs - 12hr 05/06/16 05/06/16 05/06/16 08:29 11:43 16:32 Temperature 98.0 F 97.2 F L 97.6 F Pulse Rate [ 100 H 76 80 Right Radial] Respiratory 20 20 20 Rate Blood Pressure 137/74 137/62 126/59 [Right Arm] O2 Sat by Pulse 99 Oximetry Constitutional: no acute distress, asleep Eyes: non-icteric ENT: oropharynx moist Neck: supple Effort: mildly labored Ascultation: Bilateral: diminished breath sounds, rhonchi (bases) Cardiovascular: regular rate and rhythm Gastrointestinal: normoactive bowel sounds, soft, non-tender, non-distended Integumentary: normal Extremities: no cyanosis, pulses normal, no ischemia or petechiae Neurologic: non-focal exam (grossly), pupils equal and round Psychiatric: other (dementia element) CBC and BMP: 05/04/16 08:38 01/03/17 07:28 ABG, PT/INR, D-dimer: ABG POC ABG pH 7.455 (7.35-7.45) H 04/28/16 11:44 POC ABG pCO2 40.0 (35-45) 04/28/16 11:44 POC ABG pO2 106 (80-105) H 04/28/16 11:44 POC ABG HCO3 28.1 04/28/16 11:44 POC ABG Total CO2 29 04/28/16 11:44 POC ABG O2 Sat 98 04/28/16 11:44 Abnormal lab findings: Abnormal Labs 04/28/16 04/28/16 04/28/16 06:26 06:26 11:44 WBC RBC Hgb 8.9 L Hct 29.5 L MCV 74 L MCH 22 L MCHC 30 L RDW 20.3 H Plt Count 449 H Lymph % (Auto) 11.0 L [place] % (Auto) Lymph # 1.0 L [place] # Seg Neutrophils % 87.0 H Seg Neuts % (Manual) Lymphocytes % (Manual) Seg Neutrophils # 8.1 H Seg Neutrophils # Man Lymphocytes # (Manual) POC ABG pH 7.455 H POC ABG pO2 106 H Potassium 5.3 H Carbon Dioxide BUN 26 H Glucose 130 H POC Glucose Total Bilirubin Albumin 3.3 L 04/28/16 04/29/16 04/29/16 17:47 07:18 07:18 WBC 13.7 H RBC Hgb 8.3 L Hct 27.5 L MCV 72 L MCH 22 L MCHC 30 L RDW 19.8 H Plt Count Lymph % (Auto) [place] % (Auto) Lymph # [place] # Seg Neutrophils % Seg Neuts % (Manual) 92.0 H Lymphocytes % (Manual) 4.0 L Seg Neutrophils # Seg Neutrophils # Man 12.6 H Lymphocytes # (Manual) 0.5 L POC ABG pH POC ABG pO2 Potassium Carbon Dioxide BUN 29 H Glucose 140 H POC Glucose 177 H Total Bilirubin Albumin 04/30/16 05/01/16 05/01/16 06:37 11:44 11:44 WBC 14.9 H RBC Hgb 9.4 L Hct 31.2 L MCV 74 L MCH 22 L MCHC 30 L RDW 20.8 H Plt Count Lymph % (Auto) 6.1 L [place] % (Auto) 10.0 H Lymph # 0.9 L [place] # 1.5 H Seg Neutrophils % 83.8 H Seg Neuts % (Manual) Lymphocytes % (Manual) Seg Neutrophils # 12.5 H Seg Neutrophils # Man Lymphocytes # (Manual) POC ABG pH POC ABG pO2 Potassium 3.5 L D Carbon Dioxide BUN 33 H Glucose 70 L POC Glucose 63 L Total Bilirubin Albumin 05/02/16 05/02/16 05/02/16 05:44 07:36 07:36 WBC RBC Hgb 10.5 L Hct 34.4 L MCV 73 L MCH 22 L MCHC 31 L RDW 19.9 H Plt Count Lymph % (Auto) 4.8 L [place] % (Auto) Lymph # 0.4 L [place] # Seg Neutrophils % 87.7 H Seg Neuts % (Manual) Lymphocytes % (Manual) Seg Neutrophils # Seg Neutrophils # Man Lymphocytes # (Manual) POC ABG pH POC ABG pO2 Potassium Carbon Dioxide BUN 28 H Glucose 180 H POC Glucose 175 H Total Bilirubin Albumin 05/03/16 05/03/16 05/04/16 18:40 22:17 08:38 WBC 13.6 H RBC 5.18 H Hgb 11.4 L Hct MCV 77 L D MCH 22 L MCHC 29 L RDW 20.4 H Plt Count Lymph % (Auto) 10.2 L [place] % (Auto) 14.9 H Lymph # [place] # 2.0 H Seg Neutrophils % 74.6 H Seg Neuts % (Manual) Lymphocytes % (Manual) Seg Neutrophils # 10.2 H Seg Neutrophils # Man Lymphocytes # (Manual) POC ABG pH POC ABG pO2 Potassium Carbon Dioxide BUN 30 H Glucose 54 L POC Glucose 64 L Total Bilirubin 1.6 H Albumin 3.2 L 05/04/16 05/04/16 05/04/16 08:38 16:20 21:54 WBC RBC Hgb Hct MCV MCH MCHC RDW Plt Count Lymph % (Auto) [place] % (Auto) Lymph # [place] # Seg Neutrophils % Seg Neuts % (Manual) Lymphocytes % (Manual) Seg Neutrophils # Seg Neutrophils # Man Lymphocytes # (Manual) POC ABG pH POC ABG pO2 Potassium Carbon Dioxide 21 L BUN 30 H Glucose POC Glucose 140 H 180 H Total Bilirubin Albumin 05/05/16 05/05/16 05/05/16 05:27 07:28 11:27 WBC RBC Hgb Hct MCV MCH MCHC RDW Plt Count Lymph % (Auto) [place] % (Auto) Lymph # [place] # Seg Neutrophils % Seg Neuts % (Manual) Lymphocytes % (Manual) Seg Neutrophils # Seg Neutrophils # Man Lymphocytes # (Manual) POC ABG pH POC ABG pO2 Potassium Carbon Dioxide BUN 26 H Glucose 143 H POC Glucose 157 H 131 H Total Bilirubin Albumin 05/05/16 05/05/16 05/06/16 17:09 20:47 16:14 WBC RBC Hgb Hct MCV MCH MCHC RDW Plt Count Lymph % (Auto) [place] % (Auto) Lymph # [place] # Seg Neutrophils % Seg Neuts % (Manual) Lymphocytes % (Manual) Seg Neutrophils # Seg Neutrophils # Man Lymphocytes # (Manual) POC ABG pH POC ABG pO2 Potassium Carbon Dioxide BUN Glucose POC Glucose 196 H 184 H 69 L Total Bilirubin Albumin
[2016-05-06] MEDS: SINGULAIR PO SCH (18:24)
[2016-05-06] MEDS: PROVENTIL IH PRN (22:03)
[2016-05-06] MEDS: D5W 1,000 ML IV SCH (23:03)
[2016-05-07] MEDS: DUONEB 0.5 MG-3 MG/3 ML SOLN IH SCH ×4 (02:10→19:32)
[2016-05-07] MEDS: CORDARONE PO SCH ×3 (05:13→22:00)
[2016-05-07] MEDS: COREG PO SCH ×2 (05:14→11:24)
[2016-05-07] MEDS: AMARYL PO SCH (09:04)
[2016-05-07 09:28] LABS: Mean Corpuscular HGB Conc 28 % (32-34); Mean Corpuscular Volume 82 fl (84-94); Platelet Count 130 K/mm3 (140-440)
[2016-05-07 09:29] LABS: Hematocrit 39.4 % (35.5-45.6); Hemoglobin 10.9 gm/dl (11.8-15.2); Mean Corpuscular Hemoglobin 23 pg (28-32); Red Cell Distribution Width 21.2 % (13.2-15.2)
[2016-05-07 09:30] LABS: BUN/Creatinine Ratio 35.55; Blood Urea Nitrogen 32 mg/dL (9-20); Calcium 8.8 mg/dL (8.4-10.2); Carbon Dioxide 24 mmol/L (22-30); Chloride 100.5 mmol/L (98-107); Glucose 111 mg/dL (75-100); Magnesium 2.1 mg/dL (1.7-2.3); Sodium 136 mmol/L (137-145)
[2016-05-07 09:49] LABS: Anion Gap 16 mmol/L; Potassium 4.4 mmol/L (3.6-5.0)
[2016-05-07] MEDS: ZESTRIL PO SCH (10:00)
[2016-05-07] MEDS: BABY ASPIRIN PO SCH (11:24)
[2016-05-07] MEDS: GLUCOPHAGE XR PO SCH ×2 (11:25→22:00)
[2016-05-07] MEDS: LOVENOX SUB-Q SCH (11:25)
[2016-05-07] MEDS: PEPCID PO SCH ×2 (11:25→22:00)
[2016-05-07] MEDS: CARDIZEM CD PO SCH (11:25)
--- NOTE | 2016-05-07 11:26 | Progress Note ---
Addendum entered and electronically signed by FREDDIE HADLEY MD 05/08/16 11:19: I have seen and examined the patient and agree with the documentation below. Original Note: Assessment and Plan Continue PO amiodarone. - Patient Problems (1) Acute and chronic respiratory failure Current Visit: Yes Status: Acute (2) COPD exacerbation Current Visit: Yes Status: Acute (3) Acute on chronic systolic heart failure Current Visit: Yes Status: Acute (4) Non-sustained ventricular tachycardia Current Visit: Yes Status: Acute (5) Paroxysmal atrial flutter Current Visit: Yes Status: Chronic (6) Ischemic cardiomyopathy Current Visit: Yes Status: Chronic (7) CAD (coronary artery disease) Current Visit: No Status: Chronic Qualifiers: Coronary Disease-Associated Artery/Lesion type: [place] artery (8) Hx of CABG Current Visit: No Status: Chronic (9) Anemia Current Visit: No Status: Chronic (10) Hypertension Current Visit: Yes Status: Chronic Qualifiers: Hypertension type: essential hypertension Qualified Code(s): I10 - Essential (primary) hypertension (11) Diabetes mellitus Current Visit: Yes Status: Chronic Qualifiers: Diabetes mellitus type: type 2 Subjective Date of service: 05/07/16 Principal diagnosis: Acute Hypoxemic Respiratory Failure; Acute COPD exacerbation Interval history: The patient is resting in bed. No acute distress. Tube feeding infusing via DHT. Sinus rhythm on the monitor. Objective Last Vital Signs Temp 98 F 05/07/16 05:11 Pulse 89 05/07/16 05:11 Resp 19 05/07/16 05:11 BP 108/62 05/07/16 05:11 Pulse Ox 98 05/07/16 05:11 - Physical Examination General: No Apparent Distress HEENT: Positive: PERRL, Mucus Membranes Moist Neck: Positive: neck supple, trachea midline Cardiac: Positive: Reg Rate and Rhythm, S1/S2 Lungs: Positive: Decreased Breath Sounds Neuro: Positive: Other (appears somewhat confused) Abdomen: Positive: Soft, Active Bowel Sounds. Negative: Tender, Distended Skin: Positive: Clear Incision: Cardiac Cath Site Musculoskeletal: No Pain, Normal Range of Motion Extremities: Present: normal. Absent: edema - Labs and Meds CBC 05/07/16 Range/Units 08:46 WBC 17.0 H (4.5-11.0) K/mm3 RBC 4.80 (3.65-5.03) M/mm3 Hgb 10.9 L (11.8-15.2) gm/dl Hct 39.4 (35.5-45.6) % Plt Count 130 L (140-440) K/mm3 Lymph # Batch Heat Treat Operator [place] # Batch Heat Treat Operator Eos # Batch Heat Treat Operator Baso # Batch Heat Treat Operator Comprehensive Metabolic Panel 05/07/16 Range/Units 08:46 Sodium 136 L (137-145) mmol/L Potassium 4.4 (3.6-5.0) mmol/L Chloride 100.5 (98-107) mmol/L Carbon Dioxide 24 (22-30) mmol/L BUN 32 H (9-20) mg/dL Creatinine 0.9 (0.8-1.5) mg/dL Glucose 111 H (75-100) mg/dL Calcium 8.8 (8.4-10.2) mg/dL - Imaging and Cardiology Echo: report reviewed (EF 25 30% with mild aortic regurgitation) - Telemetry EKG Rhythm: Sinus Rhythm
[2016-05-07 11:32] LABS: ISTAT Base Excess 7; ISTAT DEVICE 0; ISTAT HCO3 30.7; ISTAT PCO2 41.7 (35-45); ISTAT PH 7.475 (7.35-7.45); ISTAT PO2 57 (80-105); ISTAT SO2 91; ISTAT TCO2 32
--- NOTE | 2016-05-07 13:22 | Progress Note ---
Assessment and Plan - Patient Problems (1) Acute and chronic respiratory failure with hypoxia Current Visit: Yes Status: Acute (2) COPD exacerbation Current Visit: Yes Status: Acute (3) Atrial fibrillation with rapid ventricular response Current Visit: No Status: Acute (4) Diabetes mellitus Current Visit: Yes Status: Chronic Qualifiers: Diabetes mellitus type: type 2 Subjective Date of service: 05/07/16 Principal diagnosis: Acute Hypoxemic Respiratory Failure; Acute COPD exacerbation Interval history: Seen and examined at bedside; 24 hour events reviewed; nursing and respiratory care staff consulted; no adverse overnight events reported to me; Objective Vital Signs - 12hr 05/07/16 05/07/16 05/07/16 02:10 02:20 05:11 Temperature 98 F Pulse Rate [ Anterior Bilateral Throughout] Pulse Rate [ 87 84 Bilateral] Pulse Rate [ 89 Right Radial] Respiratory 19 Rate Respiratory Rate [Anterior Bilateral Throughout] Respiratory 20 20 Rate [Bilateral ] Blood Pressure 108/62 [Right Arm] O2 Sat by Pulse 98 Oximetry 05/07/16 05/07/16 05/07/16 08:30 08:40 08:50 Temperature 97.7 F Pulse Rate [ 90 88 Anterior Bilateral Throughout] Pulse Rate [ Bilateral] Pulse Rate [ 92 H Right Radial] Respiratory 20 Rate Respiratory 20 20 Rate [Anterior Bilateral Throughout] Respiratory Rate [Bilateral ] Blood Pressure 154/72 [Right Arm] O2 Sat by Pulse 98 97 Oximetry Constitutional: no acute distress, asleep Eyes: non-icteric ENT: oropharynx moist Neck: supple Effort: mildly labored Ascultation: Bilateral: diminished breath sounds, rhonchi (bases) Cardiovascular: regular rate and rhythm Gastrointestinal: normoactive bowel sounds, soft, non-tender, non-distended Integumentary: normal Extremities: no cyanosis, pulses normal, no ischemia or petechiae Neurologic: non-focal exam (grossly), pupils equal and round Psychiatric: other (dementia element) CBC and BMP: 05/07/16 08:46 05/07/16 08:46 ABG, PT/INR, D-dimer: ABG POC ABG pH 7.475 (7.35-7.45) H 05/07/16 10:38 POC ABG pCO2 41.7 (35-45) 05/07/16 10:38 POC ABG pO2 57 (80-105) L 05/07/16 10:38 POC ABG HCO3 30.7 05/07/16 10:38 POC ABG Total CO2 32 05/07/16 10:38 POC ABG O2 Sat 91 05/07/16 10:38 Abnormal lab findings: Abnormal Labs 04/28/16 04/28/16 04/28/16 06:26 06:26 11:44 WBC RBC Hgb 8.9 L Hct 29.5 L MCV 74 L MCH 22 L MCHC 30 L RDW 20.3 H Plt Count 449 H Lymph % (Auto) 11.0 L [place] % (Auto) Lymph # 1.0 L [place] # Seg Neutrophils % 87.0 H Seg Neuts % (Manual) Lymphocytes % (Manual) Seg Neutrophils # 8.1 H Seg Neutrophils # Man Lymphocytes # (Manual) POC ABG pH 7.455 H POC ABG pO2 106 H Sodium Potassium 5.3 H Carbon Dioxide BUN 26 H Glucose 130 H POC Glucose Total Bilirubin Albumin 3.3 L 04/28/16 04/29/16 04/29/16 17:47 07:18 07:18 WBC 13.7 H RBC Hgb 8.3 L Hct 27.5 L MCV 72 L MCH 22 L MCHC 30 L RDW 19.8 H Plt Count Lymph % (Auto) [place] % (Auto) Lymph # [place] # Seg Neutrophils % Seg Neuts % (Manual) 92.0 H Lymphocytes % (Manual) 4.0 L Seg Neutrophils # Seg Neutrophils # Man 12.6 H Lymphocytes # (Manual) 0.5 L POC ABG pH POC ABG pO2 Sodium Potassium Carbon Dioxide BUN 29 H Glucose 140 H POC Glucose 177 H Total Bilirubin Albumin 04/30/16 05/01/16 05/01/16 06:37 11:44 11:44 WBC 14.9 H RBC Hgb 9.4 L Hct 31.2 L MCV 74 L MCH 22 L MCHC 30 L RDW 20.8 H Plt Count Lymph % (Auto) 6.1 L [place] % (Auto) 10.0 H Lymph # 0.9 L [place] # 1.5 H Seg Neutrophils % 83.8 H Seg Neuts % (Manual) Lymphocytes % (Manual) Seg Neutrophils # 12.5 H Seg Neutrophils # Man Lymphocytes # (Manual) POC ABG pH POC ABG pO2 Sodium Potassium 3.5 L D Carbon Dioxide BUN 33 H Glucose 70 L POC Glucose 63 L Total Bilirubin Albumin 12/05/02/16 05/02/16 05:44 07:36 07:36 WBC RBC Hgb 10.5 L Hct 34.4 L MCV 73 L MCH 22 L MCHC 31 L RDW 19.9 H Plt Count Lymph % (Auto) 4.8 L [place] % (Auto) Lymph # 0.4 L [place] # Seg Neutrophils % 87.7 H Seg Neuts % (Manual) Lymphocytes % (Manual) Seg Neutrophils # Seg Neutrophils # Man Lymphocytes # (Manual) POC ABG pH POC ABG pO2 Sodium Potassium Carbon Dioxide BUN 28 H Glucose 180 H POC Glucose 175 H Total Bilirubin Albumin 05/03/16 05/03/16 05/04/16 18:40 22:17 08:38 WBC 13.6 H RBC 5.18 H Hgb 11.4 L Hct MCV 77 L D MCH 22 L MCHC 29 L RDW 20.4 H Plt Count Lymph % (Auto) 10.2 L [place] % (Auto) 14.9 H Lymph # [place] # 2.0 H Seg Neutrophils % 74.6 H Seg Neuts % (Manual) Lymphocytes % (Manual) Seg Neutrophils # 10.2 H Seg Neutrophils # Man Lymphocytes # (Manual) POC ABG pH POC ABG pO2 Sodium Potassium Carbon Dioxide BUN 30 H Glucose 54 L POC Glucose 64 L Total Bilirubin 1.6 H Albumin 3.2 L 05/04/16 05/04/16 05/04/16 08:38 16:20 21:54 WBC RBC Hgb Hct MCV MCH MCHC RDW Plt Count Lymph % (Auto) [place] % (Auto) Lymph # [place] # Seg Neutrophils % Seg Neuts % (Manual) Lymphocytes % (Manual) Seg Neutrophils # Seg Neutrophils # Man Lymphocytes # (Manual) POC ABG pH POC ABG pO2 Sodium Potassium Carbon Dioxide 21 L BUN 30 H Glucose POC Glucose 140 H 180 H Total Bilirubin Albumin 05/05/16 05/05/16 05/05/16 05:27 07:28 11:27 WBC RBC Hgb Hct MCV MCH MCHC RDW Plt Count Lymph % (Auto) [place] % (Auto) Lymph # [place] # Seg Neutrophils % Seg Neuts % (Manual) Lymphocytes % (Manual) Seg Neutrophils # Seg Neutrophils # Man Lymphocytes # (Manual) POC ABG pH POC ABG pO2 Sodium Potassium Carbon Dioxide BUN 26 H Glucose 143 H POC Glucose 157 H 131 H Total Bilirubin Albumin 05/05/16 05/05/16 05/06/16 17:09 20:47 16:14 WBC RBC Hgb Hct MCV MCH MCHC RDW Plt Count Lymph % (Auto) [place] % (Auto) Lymph # [place] # Seg Neutrophils % Seg Neuts % (Manual) Lymphocytes % (Manual) Seg Neutrophils # Seg Neutrophils # Man Lymphocytes # (Manual) POC ABG pH POC ABG pO2 Sodium Potassium Carbon Dioxide BUN Glucose POC Glucose 196 H 184 H 69 L Total Bilirubin Albumin 05/06/16 05/07/16 05/07/16 21:55 06:45 08:46 WBC 17.0 H RBC Hgb 10.9 L Hct MCV 82 L MCH 23 L MCHC 28 L RDW 21.2 H Plt Count 130 L Lymph % (Auto) [place] % (Auto) Lymph # [place] # Seg Neutrophils % Seg Neuts % (Manual) Lymphocytes % (Manual) Seg Neutrophils # Seg Neutrophils # Man Lymphocytes # (Manual) POC ABG pH POC ABG pO2 Sodium Potassium Carbon Dioxide BUN Glucose POC Glucose 113 H 109 H Total Bilirubin Albumin 05/07/16 05/07/16 08:46 10:38 WBC RBC Hgb Hct MCV MCH MCHC RDW Plt Count Lymph % (Auto) [place] % (Auto) Lymph # [place] # Seg Neutrophils % Seg Neuts % (Manual) Lymphocytes % (Manual) Seg Neutrophils # Seg Neutrophils # Man Lymphocytes # (Manual) POC ABG pH 7.475 H POC ABG pO2 57 L Sodium 136 L Potassium Carbon Dioxide BUN 32 H Glucose 111 H POC Glucose Total Bilirubin Albumin
[2016-05-07] MEDS: HALDOL IM SCH ×3 (13:35→22:00)
--- NOTE | 2016-05-07 13:52 | XRay Report ---
PA and lateral chest: The right lung is hyperinflated. There is mild elevation of the left hemidiaphragm relative to the right however lung appears relatively well inflated on the left. There is mild left basilar atelectasis. The heart is normal in size. There bypass changes. A Dobbhoff catheter is in good position. Impressions: Left basilar scarring/atelectasis. COPD. CABG.
--- NOTE | 2016-05-07 14:35 | Progress Note ---
Assessment and Plan 1. Oropharyngeal dysphagia - pt warrants G-tube. Discussed with Eva Lombardi, pt's friend. I am willing to place PEG if can ensure it is done legally. Subjective Date of service: 05/07/16 Principal diagnosis: Acute Hypoxemic Respiratory Failure; Acute COPD exacerbation Interval history: Pt difficult to understand. Difficult to clearly communicate his wishes. He just pulled out his Dobhoff and IVs. Objective - Constitutional Vitals: Vital Signs - 12hr 05/07/16 05/07/16 05/07/16 05:11 08:30 08:40 Temperature 98 F Pulse Rate [ 90 88 Anterior Bilateral Throughout] Pulse Rate [ 89 Right Radial] Respiratory 19 Rate Respiratory 20 20 Rate [Anterior Bilateral Throughout] Blood Pressure 108/62 [Right Arm] O2 Sat by Pulse 98 98 Oximetry 05/07/16 05/07/16 08:50 13:55 Temperature 97.7 F Pulse Rate [ 87 Anterior Bilateral Throughout] Pulse Rate [ 92 H Right Radial] Respiratory 20 Rate Respiratory 18 Rate [Anterior Bilateral Throughout] Blood Pressure 154/72 [Right Arm] O2 Sat by Pulse 97 Oximetry General appearance: Present: no acute distress - EENT Eyes: PERRL, EOM intact ENT: hearing intact - Gastrointestinal General gastrointestinal: Present: soft, non-tender - Labs CBC & Chem 7: 05/07/16 08:46 05/07/16 08:46 Labs: Abnormal lab results 05/06/16 05/06/16 05/07/16 Range/Units 16:14 21:55 06:45 WBC (4.5-11.0) K/mm3 Hgb (11.8-15.2) gm/dl MCV (84-94) fl MCH (28-32) pg MCHC (32-34) % RDW (13.2-15.2) % Plt Count (140-440) K/mm3 POC ABG pH (7.35-7.45) POC ABG pO2 (80-105) Sodium (137-145) mmol/L BUN (9-20) mg/dL Glucose (75-100) mg/dL POC Glucose 69 L 113 H 109 H (70-105) 05/07/16 05/07/16 05/07/16 Range/Units 08:46 08:46 10:38 WBC 17.0 H (4.5-11.0) K/mm3 Hgb 10.9 L (11.8-15.2) gm/dl MCV 82 L (84-94) fl MCH 23 L (28-32) pg MCHC 28 L (32-34) % RDW 21.2 H (13.2-15.2) % Plt Count 130 L (140-440) K/mm3 POC ABG pH 7.475 H (7.35-7.45) POC ABG pO2 57 L (80-105) Sodium 136 L (137-145) mmol/L BUN 32 H (9-20) mg/dL Glucose 111 H (75-100) mg/dL POC Glucose (70-105)
--- NOTE | 2016-05-07 14:39 | Event Note ---
Date: 05/07/16 Spoke with vice president & general manager [employer] [place], who spoke with Risk management. Consent by adult friend is acceptable. Will place PEG.
[2016-05-07] MEDS: SINGULAIR PO SCH (17:46)
[2016-05-07] MEDS: XALATAN 0.005% OU SCH (18:07)
--- NOTE | 2016-05-07 19:23 | Progress Note ---
History Interval history: [facility] Hospitalist Physical - Constitutional Vitals: Temp Pulse Resp BP Pulse Ox 98.5 F 89 18 103/57 98 05/07/16 11:30 05/07/16 14:05 05/07/16 14:05 05/07/16 11:30 05/07/16 11:30 General appearance: Present: no acute distress Results - Labs CBC & Chem 7: 05/07/16 08:46 05/07/16 08:46 Labs: Laboratory Last Values WBC 17.0 K/mm3 (4.5-11.0) H 05/07/16 08:46 RBC 4.80 M/mm3 (3.65-5.03) 05/07/16 08:46 Hgb 10.9 gm/dl (11.8-15.2) L 05/07/16 08:46 Hct 39.4 % (35.5-45.6) 05/07/16 08:46 MCV 82 fl (84-94) L 05/07/16 08:46 MCH 23 pg (28-32) L 05/07/16 08:46 MCHC 28 % (32-34) L 05/07/16 08:46 RDW 21.2 % (13.2-15.2) H 05/07/16 08:46 Plt Count 130 K/mm3 (140-440) L 05/07/16 08:46 Lymph % (Auto) [employer] 05/07/16 08:46 [place] % (Auto) [employer]or 05/07/16 08:46 Eos % (Auto) [employer]or 05/07/16 08:46 Baso % (Auto) [employer]or 05/07/16 08:46 Lymph # [employer] 05/07/16 08:46 [place] # Coin Collector 05/07/16 08:46 Eos # [employer] Collector 05/07/16 08:46 Baso # [employer] Collector 05/07/16 08:46 Add Manual Diff Complete 04/29/16 07:18 Total Counted 100 04/29/16 07:18 Seg Neutrophils % [employer] 05/07/16 08:46 Seg Neuts % (Manual) 92.0 % (40.0-70.0) H 04/29/16 07:18 Band Neutrophils % 3.0 % 04/29/16 07:18 Lymphocytes % (Manual) 4.0 % (13.4-35.0) L 04/29/16 07:18 Reactive Lymphs % (Man) 0 % 04/29/16 07:18 Monocytes % (Manual) 1.0 % (0.0-7.3) 04/29/16 07:18 Eosinophils % (Manual) 0 % (0.0-4.3) 04/29/16 07:18 Basophils % (Manual) 0 % (0.0-1.8) 04/29/16 07:18 Metamyelocytes % 0 % 04/29/16 07:18 Myelocytes % 0 % 04/29/16 07:18 Promyelocytes % 0 % 04/29/16 07:18 Blast Cells % 0 % 04/29/16 07:18 Nucleated RBC % Not Reportable 04/29/16 07:18 Seg Neutrophils # [employer] 05/07/16 08:46 Seg Neutrophils # Man 12.6 K/mm3 (1.8-7.7) H 04/29/16 07:18 Band Neutrophils # 0.4 K/mm3 04/29/16 07:18 Lymphocytes # (Manual) 0.5 K/mm3 (1.2-5.4) L 04/29/16 07:18 Abs React Lymphs (Man) 0.0 K/mm3 04/29/16 07:18 Monocytes # (Manual) 0.1 K/mm3 (0.0-0.8) 04/29/16 07:18 Eosinophils # (Manual) 0.0 K/mm3 (0.0-0.4) 04/29/16 07:18 Basophils # (Manual) 0.0 K/mm3 (0.0-0.1) 04/29/16 07:18 Metamyelocytes # 0.0 K/mm3 04/29/16 07:18 Myelocytes # 0.0 K/mm3 04/29/16 07:18 Promyelocytes # 0.0 K/mm3 04/29/16 07:18 Blast Cells # 0.0 K/mm3 04/29/16 07:18 WBC Morphology Not Reportable 04/29/16 07:18 Hypersegmented Neuts Not Reportable 04/29/16 07:18 Hyposegmented Neuts Not Reportable 04/29/16 07:18 Hypogranular Neuts Not Reportable 04/29/16 07:18 Smudge Cells Not Reportable 04/29/16 07:18 Toxic Granulation Not Reportable 04/29/16 07:18 Toxic Vacuolation Not Reportable 04/29/16 07:18 Dohle Bodies Not Reportable 04/29/16 07:18 Pelger-Huet Anomaly Not Reportable 04/29/16 07:18 Jose L Rods Not Reportable 04/29/16 07:18 Platelet Estimate Not Reportable 04/29/16 07:18 Clumped Platelets Not Reportable 04/29/16 07:18 Plt Clumps, EDTA Not Reportable 04/29/16 07:18 Large Platelets Not Reportable 04/29/16 07:18 Giant Platelets Not Reportable 04/29/16 07:18 Platelet Satelliting Not Reportable 04/29/16 07:18 Plt Morphology Comment Not Reportable 04/29/16 07:18 RBC Morphology Not Reportable 04/29/16 07:18 Dimorphic RBCs Not Reportable 04/29/16 07:18 Polychromasia Not Reportable 04/29/16 07:18 Hypochromasia Not Reportable 04/29/16 07:18 Poikilocytosis Few 04/29/16 07:18 Anisocytosis 1+ 04/29/16 07:18 Microcytosis Not Reportable 04/29/16 07:18 Macrocytosis Not Reportable 04/29/16 07:18 Spherocytes Not Reportable 04/29/16 07:18 Pappenheimer Bodies Not Reportable 04/29/16 07:18 Sickle Cells Not Reportable 04/29/16 07:18 Target Cells Not Reportable 04/29/16 07:18 Tear Drop Cells Not Reportable 04/29/16 07:18 Ovalocytes Not Reportable 04/29/16 07:18 Helmet Cells Not Reportable 04/29/16 07:18 [place] Bodies Not Reportable 04/29/16 07:18 [place] Rings Not Reportable 04/29/16 07:18 [place]ady Cells Not Reportable 04/29/16 07:18 Bite Cells Not Reportable 04/29/16 07:18 Crenated Cell Not Reportable 04/29/16 07:18 Elliptocytes Not Reportable 04/29/16 07:18 Acanthocytes (Spur) Not Reportable 04/29/16 07:18 Rouleaux Not Reportable 04/29/16 07:18 Hemoglobin C Crystals Not Reportable 04/29/16 07:18 Schistocytes Not Reportable 04/29/16 07:18 Malaria parasites Not Reportable 04/29/16 07:18 Juan R Bodies Not Reportable 04/29/16 07:18 Hem Pathologist Commnt No 04/29/16 07:18 POC ABG pH 7.475 (7.35-7.45) H 05/07/16 10:38 POC ABG pCO2 41.7 (35-45) 05/07/16 10:38 POC ABG pO2 57 (80-105) L 05/07/16 10:38 POC ABG HCO3 30.7 05/07/16 10:38 POC ABG Total CO2 32 05/07/16 10:38 POC ABG O2 Sat 91 05/07/16 10:38 POC ABG Base Excess 7 05/07/16 10:38 FiO2 21 % 05/07/16 10:38 Sodium 136 mmol/L (137-145) L 05/07/16 08:46 Potassium 4.4 mmol/L (3.6-5.0) 05/07/16 08:46 Chloride 100.5 mmol/L (98-107) 05/07/16 08:46 Carbon Dioxide 24 mmol/L (22-30) 05/07/16 08:46 Anion Gap 16 mmol/L 05/07/16 08:46 BUN 32 mg/dL (9-20) H 05/07/16 08:46 Creatinine 0.9 mg/dL (0.8-1.5) 05/07/16 08:46 Estimated GFR > 60 ml/min 05/07/16 08:46 BUN/Creatinine Ratio 35.55 % 05/07/16 08:46 Glucose 111 mg/dL (75-100) H 05/07/16 08:46 POC Glucose 109 (70-105) H 05/07/16 06:45 Lactic Acid 0.8 mmol/L (0.7-2.0) 04/27/16 13:06 Calcium 8.8 mg/dL (8.4-10.2) 05/07/16 08:46 Magnesium 2.1 mg/dL (1.7-2.3) 05/07/16 08:46 Total Bilirubin 1.6 mg/dL (0.1-1.2) H 05/03/16 18:40 AST 15 units/L (5-40) 05/03/16 18:40 ALT 9 units/L (7-56) 05/03/16 18:40 Alkaline Phosphatase 77 units/L (35-129) 05/03/16 18:40 Troponin T 0.026 ng/mL (0.00-0.029) 04/27/16 13:06 NT-Pro-B Natriuret Pep 818.3 pg/mL (0-900) 04/27/16 13:06 Total Protein 6.4 g/dL (6.3-8.2) 05/03/16 18:40 Albumin 3.2 g/dL (3.9-5) L 05/03/16 18:40 Albumin/Globulin Ratio 1.0 % 05/03/16 18:40 Urine Color Yellow (Yellow) 04/27/16 14:00 Urine Turbidity Slightly-cloudy (Clear) 04/27/16 14:00 Urine pH 5.0 (5.0-7.0) 04/27/16 14:00 Ur Specific [place] 1.019 (1.003-1.030) 04/27/16 14:00 Urine Protein 100 mg/dl mg/dL (Negative) 04/27/16 14:00 Urine Glucose (UA) Neg mg/dL (Negative) 04/27/16 14:00 Urine Ketones Neg mg/dL (Negative) 04/27/16 14:00 Urine Blood Neg (Negative) 04/27/16 14:00 Urine Nitrite Neg (Negative) 04/27/16 14:00 Urine Bilirubin Neg (Negative) 04/27/16 14:00 Urine Urobilinogen < 2.0 mg/dL (<2.0) 04/27/16 14:00 Ur Leukocyte Esterase Neg (Negative) 04/27/16 14:00 Urine WBC (Auto) 1.0 /HPF (0.0-6.0) 04/27/16 14:00 Urine RBC (Auto) 1.0 /HPF (0.0-6.0) 04/27/16 14:00 Urine Bacteria (Auto) 1+ /HPF (Negative) 04/27/16 14:00 Hyaline Casts 1 /LPF 04/27/16 14:00 Urine Mucus Few /HPF 04/27/16 14:00
[2016-05-07] MEDS: REMERON PO SCH (22:00)
[2016-05-08] MEDS ORDERED: ceFAZolin 2 GM in NACL 0.9% 100 ML IV ONE (00:01)
[2016-05-08] MEDS: DUONEB 0.5 MG-3 MG/3 ML SOLN IH SCH ×4 (01:55→21:30)
[2016-05-08] MEDS: HALDOL IM SCH ×6 (02:31→22:15)
[2016-05-08] MEDS: D5W 1,000 ML IV SCH (06:57)
[2016-05-08 07:46] LABS: Mean Corpuscular HGB Conc 30 % (32-34); Mean Corpuscular Volume 76 fl (84-94); Platelet Count 319 K/mm3 (140-440); Red Blood Count 5.28 M/mm3 (3.65-5.03)
[2016-05-08 07:47] LABS: Hematocrit 40.1 % (35.5-45.6); Hemoglobin 11.9 gm/dl (11.8-15.2); Mean Corpuscular Hemoglobin 23 pg (28-32); Red Cell Distribution Width 21.2 % (13.2-15.2); White Blood Count 28.3 K/mm3 (4.5-11.0)
[2016-05-08 08:06] LABS: Anion Gap 23 mmol/L; Blood Urea Nitrogen 27 mg/dL (9-20); Carbon Dioxide 22 mmol/L (22-30); Chloride 96.1 mmol/L (98-107); Potassium 4.4 mmol/L (3.6-5.0); Sodium 137 mmol/L (137-145)
[2016-05-08] MEDS: AMARYL PO SCH ×2 (08:10→18:44)
[2016-05-08 08:36] LABS: Glucose 74 mg/dL (75-100)
[2016-05-08] MEDS ORDERED: ZESTRIL PO SCH (08:47)
[2016-05-08 09:24] LABS: Acanthocytes 1+; Anisocytosis 1+; Basophils % (Manual) 0 % (0.0-1.8); Blastocytes % (Manual) 0 %; Elliptocytes 1+; Eosinophils % (Manual) 0 % (0.0-4.3); Ovalocytes 1+; Poikilocytosis 1+; Schistocytes Rare
[2016-05-08] MEDS: CORDARONE PO SCH ×2 (09:24→22:05)
[2016-05-08 09:25] LABS: Diff Status Complete; Helmet Cells Few; Polychromasia Rare
[2016-05-08] MEDS: GLUCOPHAGE XR PO SCH (09:25)
[2016-05-08] MEDS: COREG PO SCH ×3 (09:25→22:07)
[2016-05-08] MEDS ORDERED: WATER FOR IRRIG STERILE IR ONE ×3 (09:55→12:46)
[2016-05-08] MEDS ORDERED: ANCEF/STERILE WATER 2 GM/20 ML 20 ML IV NR (10:00)
[2016-05-08] MEDS: NACL 0.9% 1000 ML 1,000 ML IV SCH ×2 (10:09→14:04)
--- NOTE | 2016-05-08 10:33 | Anesthesia Consultation ---
Anesthesia Consult and Med Hx Date of service: 05/08/16 - Pre-Operative Health Status ASA Pre-Surgery Classification: ASA4 Proposed Anesthetic Plan: MAC - Pre-Anesthesia Comment Pre-Anesthesia Comments: Patient for EGD/PEG d/t aspiration from CVA, acute respiratory failure on BIPAP, CHF EF 25-30%, non-sustained VT phytopathologist consult reports it is OK to proceed with the scheduled procedure. altered MS, DM. Patient on cardizem - Pulmonary Hx Smoking: Yes Hx Asthma: Yes COPD: Yes (on BIPAP) - Cardiovascular System Hx Hypertension: Yes Hx Coronary Artery Disease: Yes Hx Heart Attack/AMI: Yes (non-STEMI type 2) Hx Cardia Arrhythmia: Yes - Central Nervous System CVA: Yes Hx Psychiatric Problems: Yes - Endocrine Hx Non-Insulin Dependent Diabetes: Yes - Other Systems Hx Cancer: Yes (lung cancer)
--- NOTE | 2016-05-08 10:34 | Anesthesia Day of Surgery ---
Anesthesia Day of Surgery - Day of Surgery Patient Examined: Yes Patient H&P Reviewed: Yes Patient is NPO: Yes Cardiac Clearance: Yes
[2016-05-08] MEDS ORDERED: PROVENTIL IH ONE (11:10)
[2016-05-08] MEDS: PROVENTIL IH PRN (11:15)
[2016-05-08] MEDS ORDERED: AMIDATE IV ONE (11:32)
--- NOTE | 2016-05-08 11:42 | Progress Note ---
Assessment and Plan - Patient Problems (1) Acute and chronic respiratory failure with hypoxia Current Visit: Yes Status: Acute (2) COPD exacerbation Current Visit: Yes Status: Acute (3) Atrial fibrillation with rapid ventricular response Current Visit: No Status: Acute (4) Diabetes mellitus Current Visit: Yes Status: Chronic Qualifiers: Diabetes mellitus type: type 2 Subjective Date of service: 05/08/16 Principal diagnosis: Acute Hypoxemic Respiratory Failure; Acute COPD exacerbation Interval history: Seen and examined at bedside; 24 hour events reviewed; nursing and respiratory care staff consulted; no adverse overnight events reported to me; Objective Vital Signs - 12hr 05/07/16 05/08/16 05/08/16 23:59 00:00 01:56 Temperature 98.4 F Pulse Rate Pulse Rate [ Anterior Bilateral Throughout] Pulse Rate [ 89 Bilateral] Pulse Rate [ 98 H From Monitor] Pulse Rate [ Right Radial] Respiratory 20 Rate Respiratory Rate [Anterior Bilateral Throughout] Respiratory 18 Rate [Bilateral ] Respiratory 18 Rate [ Generalized] Blood Pressure Blood Pressure 122/72 [Right Arm] O2 Sat by Pulse 98 Oximetry 05/08/16 05/08/16 05/08/16 02:16 06:46 07:51 Temperature 98.0 F Pulse Rate Pulse Rate [ 105 H Anterior Bilateral Throughout] Pulse Rate [ 92 H Bilateral] Pulse Rate [ From Monitor] Pulse Rate [ 105 H Right Radial] Respiratory 20 Rate Respiratory 20 Rate [Anterior Bilateral Throughout] Respiratory 20 Rate [Bilateral ] Respiratory Rate [ Generalized] Blood Pressure Blood Pressure 152/72 [Right Arm] O2 Sat by Pulse 100 95 Oximetry 05/08/16 05/08/16 05/08/16 08:00 08:02 09:57 Temperature 100.4 F H 98.5 F Pulse Rate 115 H Pulse Rate [ 115 H Anterior Bilateral Throughout] Pulse Rate [ Bilateral] Pulse Rate [ From Monitor] Pulse Rate [ 108 H Right Radial] Respiratory 22 16 Rate Respiratory 20 Rate [Anterior Bilateral Throughout] Respiratory Rate [Bilateral ] Respiratory Rate [ Generalized] Blood Pressure Blood Pressure 148/67 [Right Arm] O2 Sat by Pulse 98 88 Oximetry 05/08/16 10:02 Temperature 98.5 F Pulse Rate 115 H Pulse Rate [ Anterior Bilateral Throughout] Pulse Rate [ Bilateral] Pulse Rate [ From Monitor] Pulse Rate [ Right Radial] Respiratory 16 Rate Respiratory Rate [Anterior Bilateral Throughout] Respiratory Rate [Bilateral ] Respiratory Rate [ Generalized] Blood Pressure 128/81 Blood Pressure [Right Arm] O2 Sat by Pulse 88 Oximetry Constitutional: no acute distress, asleep Eyes: non-icteric ENT: oropharynx moist Neck: supple Effort: mildly labored Ascultation: Bilateral: diminished breath sounds, rhonchi (bases) Cardiovascular: regular rate and rhythm Gastrointestinal: normoactive bowel sounds, soft, non-tender, non-distended Integumentary: normal Extremities: no cyanosis, pulses normal, no ischemia or petechiae Neurologic: non-focal exam (grossly), pupils equal and round Psychiatric: other (dementia element) CBC and BMP: 05/08/16 07:08 05/08/16 07:08 ABG, PT/INR, D-dimer: ABG POC ABG pH 7.475 (7.35-7.45) H 05/07/16 10:38 POC ABG pCO2 41.7 (35-45) 05/07/16 10:38 POC ABG pO2 57 (80-105) L 05/07/16 10:38 POC ABG HCO3 30.7 05/07/16 10:38 POC ABG Total CO2 32 05/07/16 10:38 POC ABG O2 Sat 91 05/07/16 10:38 Abnormal lab findings: Abnormal Labs 04/28/16 04/28/16 04/28/16 06:26 06:26 11:44 WBC RBC Hgb 8.9 L Hct 29.5 L MCV 74 L MCH 22 L MCHC 30 L RDW 20.3 H Plt Count 449 H Lymph % (Auto) 11.0 L [place] % (Auto) Lymph # 1.0 L [place] # Seg Neutrophils % 87.0 H Seg Neuts % (Manual) Lymphocytes % (Manual) Seg Neutrophils # 8.1 H Seg Neutrophils # Man Lymphocytes # (Manual) Monocytes # (Manual) POC ABG pH 7.455 H POC ABG pO2 106 H Sodium Potassium 5.3 H Chloride Carbon Dioxide BUN 26 H Glucose 130 H POC Glucose Total Bilirubin Albumin 3.3 L 04/28/16 04/29/16 04/29/16 17:47 07:18 07:18 WBC 13.7 H RBC Hgb 8.3 L Hct 27.5 L MCV 72 L MCH 22 L MCHC 30 L RDW 19.8 H Plt Count Lymph % (Auto) [place] % (Auto) Lymph # [place] # Seg Neutrophils % Seg Neuts % (Manual) 92.0 H Lymphocytes % (Manual) 4.0 L Seg Neutrophils # Seg Neutrophils # Man 12.6 H Lymphocytes # (Manual) 0.5 L Monocytes # (Manual) POC ABG pH POC ABG pO2 Sodium Potassium Chloride Carbon Dioxide BUN 29 H Glucose 140 H POC Glucose 177 H Total Bilirubin Albumin 04/30/16 05/01/16 05/01/16 06:37 11:44 11:44 WBC 14.9 H RBC Hgb 9.4 L Hct 31.2 L MCV 74 L MCH 22 L MCHC 30 L RDW 20.8 H Plt Count Lymph % (Auto) 6.1 L [place] % (Auto) 10.0 H Lymph # 0.9 L [place] # 1.5 H Seg Neutrophils % 83.8 H Seg Neuts % (Manual) Lymphocytes % (Manual) Seg Neutrophils # 12.5 H Seg Neutrophils # Man Lymphocytes # (Manual) Monocytes # (Manual) POC ABG pH POC ABG pO2 Sodium Potassium 3.5 L D Chloride Carbon Dioxide BUN 33 H Glucose 70 L POC Glucose 63 L Total Bilirubin Albumin 05/02/16 05/02/16 05/02/16 05:44 07:36 07:36 WBC RBC Hgb 10.5 L Hct 34.4 L MCV 73 L MCH 22 L MCHC 31 L RDW 19.9 H Plt Count Lymph % (Auto) 4.8 L [place] % (Auto) Lymph # 0.4 L [place] # Seg Neutrophils % 87.7 H Seg Neuts % (Manual) Lymphocytes % (Manual) Seg Neutrophils # Seg Neutrophils # Man Lymphocytes # (Manual) Monocytes # (Manual) POC ABG pH POC ABG pO2 Sodium Potassium Chloride Carbon Dioxide BUN 28 H Glucose 180 H POC Glucose 175 H Total Bilirubin Albumin 05/03/16 05/03/16 05/04/16 18:40 22:17 08:38 WBC 13.6 H RBC 5.18 H Hgb 11.4 L Hct MCV 77 L D MCH 22 L MCHC 29 L RDW 20.4 H Plt Count Lymph % (Auto) 10.2 L [place] % (Auto) 14.9 H Lymph # [place] # 2.0 H Seg Neutrophils % 74.6 H Seg Neuts % (Manual) Lymphocytes % (Manual) Seg Neutrophils # 10.2 H Seg Neutrophils # Man Lymphocytes # (Manual) Monocytes # (Manual) POC ABG pH POC ABG pO2 Sodium Potassium Chloride Carbon Dioxide BUN 30 H Glucose 54 L POC Glucose 64 L Total Bilirubin 1.6 H Albumin 3.2 L 05/04/16 05/04/16 05/04/16 08:38 16:20 21:54 WBC RBC Hgb Hct MCV MCH MCHC RDW Plt Count Lymph % (Auto) [place] % (Auto) Lymph # [place] # Seg Neutrophils % Seg Neuts % (Manual) Lymphocytes % (Manual) Seg Neutrophils # Seg Neutrophils # Man Lymphocytes # (Manual) Monocytes # (Manual) POC ABG pH POC ABG pO2 Sodium Potassium Chloride Carbon Dioxide 21 L BUN 30 H Glucose POC Glucose 140 H 180 H Total Bilirubin Albumin 05/05/16 05/05/16 05/05/16 05:27 07:28 11:27 WBC RBC Hgb Hct MCV MCH MCHC RDW Plt Count Lymph % (Auto) [place] % (Auto) Lymph # [place] # Seg Neutrophils % Seg Neuts % (Manual) Lymphocytes % (Manual) Seg Neutrophils # Seg Neutrophils # Man Lymphocytes # (Manual) Monocytes # (Manual) POC ABG pH POC ABG pO2 Sodium Potassium Chloride Carbon Dioxide BUN 26 H Glucose 143 H POC Glucose 157 H 131 H Total Bilirubin Albumin 05/05/16 05/05/16 05/06/16 17:09 20:47 16:14 WBC RBC Hgb Hct MCV MCH MCHC RDW Plt Count Lymph % (Auto) [place] % (Auto) Lymph # [place] # Seg Neutrophils % Seg Neuts % (Manual) Lymphocytes % (Manual) Seg Neutrophils # Seg Neutrophils # Man Lymphocytes # (Manual) Monocytes # (Manual) POC ABG pH POC ABG pO2 Sodium Potassium Chloride Carbon Dioxide BUN Glucose POC Glucose 196 H 184 H 69 L Total Bilirubin Albumin 05/06/16 05/07/16 05/07/16 21:55 06:45 08:46 WBC 17.0 H RBC Hgb 10.9 L Hct MCV 82 L MCH 23 L MCHC 28 L RDW 21.2 H Plt Count 130 L Lymph % (Auto) [place] % (Auto) Lymph # [place] # Seg Neutrophils % Seg Neuts % (Manual) Lymphocytes % (Manual) Seg Neutrophils # Seg Neutrophils # Man Lymphocytes # (Manual) Monocytes # (Manual) POC ABG pH POC ABG pO2 Sodium Potassium Chloride Carbon Dioxide BUN Glucose POC Glucose 113 H 109 H Total Bilirubin Albumin 05/07/16 05/07/16 05/08/16 08:46 10:38 07:08 WBC 28.3 H RBC 5.28 H Hgb Hct MCV 76 L D MCH 23 L MCHC 30 L RDW 21.2 H Plt Count Lymph % (Auto) [place] % (Auto) Lymph # [place] # Seg Neutrophils % Seg Neuts % (Manual) 96.0 H Lymphocytes % (Manual) 0 L Seg Neutrophils # Seg Neutrophils # Man 27.2 H Lymphocytes # (Manual) 0.0 L Monocytes # (Manual) 1.1 H POC ABG pH 7.475 H POC ABG pO2 57 L Sodium 136 L Potassium Chloride Carbon Dioxide BUN 32 H Glucose 111 H POC Glucose Total Bilirubin Albumin 05/08/16 07:08 WBC RBC Hgb Hct MCV MCH MCHC RDW Plt Count Lymph % (Auto) [place] % (Auto) Lymph # [place] # Seg Neutrophils % Seg Neuts % (Manual) Lymphocytes % (Manual) Seg Neutrophils # Seg Neutrophils # Man Lymphocytes # (Manual) Monocytes # (Manual) POC ABG pH POC ABG pO2 Sodium Potassium Chloride 96.1 L Carbon Dioxide BUN 27 H Glucose 74 L POC Glucose Total Bilirubin Albumin
[2016-05-08] MEDS ORDERED: VERSED ONE (11:45)
[2016-05-08] MEDS ORDERED: SUBLIMAZE ONE (11:45)
--- NOTE | 2016-05-08 12:40 | Post Operative Note ---
Pre-op diagnosis: Oropharyngeal dysphagia Post-op diagnosis: other (Successful G-tube placement) Findings: 1. Inspissated oral secretions 2. Normal EGD 3. Successful G-tube placement Procedure: EGD/PEG Anesthesia: MAC Surgeon: SUNITA TAVARES Estimated blood loss: minimal Pathology: none Condition: stable Disposition: floor
[2016-05-08] MEDS ORDERED: SIMPLE SYRUP FEEDTUBE PRN ×2 (13:01)
[2016-05-08] MEDS ORDERED: SODIUM BICARBONATE FEEDTUBE PRN (13:01)
[2016-05-08] MEDS ORDERED: PANCREAZE DR 10,500 UNIT FEEDTUBE PRN (13:01)
--- NOTE | 2016-05-08 13:01 | Post Anesthesia Evaluation ---
- Post Anesthesia Evaluation Patient Participated: No Airway Patent: Yes Stable Respiratory Function: Yes Temp > 96.8F: Yes Pain Manageable: Yes Adequeate Hydration: Yes Anesthesia Complications: No Block Receding Appropriately: Not Applicable
--- NOTE | 2016-05-08 13:27 | Operative Report ---
PROCEDURE: Upper endoscopy with G-tube placement. PREOPERATIVE DIAGNOSIS: Oropharyngeal dysphagia. POSTOPERATIVE DIAGNOSES: Successful G-tube placement and normal upper endoscopy. SEDATION: MAC by Anesthesia. HISTORY: The patient is a 75-year-old man who has oropharyngeal dysphagia. Indications, risks, and benefits were explained and consent was obtained from the patient's friend, Eva Lombardi who is his caregiver. DESCRIPTION OF PROCEDURE: The patient was placed on back on exam table and sedated. [facility] [employer] video upper scope was passed through the mouth and oropharynx into the descending duodenum. Scope was then gradually withdrawn with close inspection of the mucosa into the gastric lumen. An appropriate location was transilluminated on the abdominal surface and confirmed with 1:1 ballottement. This was prepped and draped in a sterile fashion. Three mL of 1% Xylocaine were infiltrated into the skin and in a safe track method. Trocar was placed percutaneously into the gastric lumen and the guidewire was passed through this. A guidewire was grasped with a snare and pulled out the mouth. A 20-[place] G-tube was attached to the wire at the mouth and pulled through the mouth and oropharynx into the gastric lumen and out the skin. External bumper was fixed at 4 cm. Placement was confirmed by repeat upper endoscopy. FINDINGS: 1. Normal upper endoscopy. 2. Successful 20-[place] G-tube placement. The patient tolerated the procedure well without immediate complication. ESTIMATED BLOOD LOSS: Minimal. IMPRESSION: 1. Normal upper endoscopy. 2. Successful G-tube placement. PLAN: Initiate tube feedings as per dietary. JOB# [id number] HRC/NTS
--- NOTE | 2016-05-08 14:18 | Progress Note ---
Addendum entered and electronically signed by FREDDIE HADLEY MD 05/08/16 14:39: I have seen and examined the patient and agree with the documentation below. Original Note: Assessment and Plan Will initiate low dose coreg. Continue PO amiodarone. - Patient Problems (1) Acute and chronic respiratory failure Current Visit: Yes Status: Acute (2) COPD exacerbation Current Visit: Yes Status: Acute (3) Acute on chronic systolic heart failure Current Visit: Yes Status: Acute (4) Non-sustained ventricular tachycardia Current Visit: Yes Status: Acute (5) Paroxysmal atrial flutter Current Visit: Yes Status: Chronic (6) Ischemic cardiomyopathy Current Visit: Yes Status: Chronic (7) CAD (coronary artery disease) Current Visit: No Status: Chronic Qualifiers: Coronary Disease-Associated Artery/Lesion type: [place] artery (8) Hx of CABG Current Visit: No Status: Chronic (9) Anemia Current Visit: No Status: Chronic (10) Hypertension Current Visit: Yes Status: Chronic Qualifiers: Hypertension type: essential hypertension Qualified Code(s): I10 - Essential (primary) hypertension (11) Diabetes mellitus Current Visit: Yes Status: Chronic Qualifiers: Diabetes mellitus type: type 2 Subjective Date of service: 05/08/16 Principal diagnosis: Acute Hypoxemic Respiratory Failure; Acute COPD exacerbation Interval history: The patient is resting in bed s/p PEG tube placement this morning. Sinus rhythm on the monitor. Objective Last Vital Signs Temp 99.7 F H 05/08/16 12:34 Pulse 124 H 05/08/16 13:30 Resp 158 H 05/08/16 13:30 BP 138/78 05/08/16 13:30 Pulse Ox 9 L 05/08/16 13:30 - Physical Examination General: No Apparent Distress HEENT: Positive: PERRL, Mucus Membranes Moist Neck: Positive: neck supple, trachea midline Cardiac: Positive: Reg Rate and Rhythm, S1/S2 Lungs: Positive: clear to auscultation Neuro: Positive: Other (appears somewhat confused) Abdomen: Positive: Soft, Active Bowel Sounds. Negative: Tender, Distended Skin: Positive: Clear Incision: Cardiac Cath Site Musculoskeletal: No Pain, Normal Range of Motion Extremities: Present: normal. Absent: edema - Labs and Meds CBC 05/08/16 Range/Units 07:08 WBC 28.3 H (4.5-11.0) K/mm3 RBC 5.28 H (3.65-5.03) M/mm3 Hgb 11.9 (11.8-15.2) gm/dl Hct 40.1 (35.5-45.6) % Plt Count 319 D (140-440) K/mm3 Comprehensive Metabolic Panel 05/08/16 Range/Units 07:08 Sodium 137 (137-145) mmol/L Potassium 4.4 (3.6-5.0) mmol/L Chloride 96.1 L (98-107) mmol/L Carbon Dioxide 22 (22-30) mmol/L BUN 27 H (9-20) mg/dL Creatinine 0.9 (0.8-1.5) mg/dL Glucose 74 L (75-100) mg/dL Calcium 9.0 (8.4-10.2) mg/dL - Imaging and Cardiology Echo: report reviewed (EF 25 30% with mild aortic regurgitation) - Telemetry EKG Rhythm: Sinus Rhythm
[2016-05-08] MEDS: PEPCID PO SCH ×2 (16:58→22:06)
[2016-05-08] MEDS: SINGULAIR PO SCH (18:41)
[2016-05-08] MEDS: XALATAN 0.005% OU SCH (18:47)
--- NOTE | 2016-05-08 18:52 | Progress Note ---
Hospitalist Physical - Constitutional Vitals: Temp Pulse Resp BP Pulse Ox 97.2 F L 102 H 20 121/74 98 05/08/16 16:30 05/08/16 18:43 05/08/16 16:30 05/08/16 18:43 05/08/16 16:30 General appearance: Present: no acute distress Results - Labs CBC & Chem 7: 05/08/16 07:08 05/08/16 07:08 Labs: Laboratory Last Values WBC 28.3 K/mm3 (4.5-11.0) H 05/08/16 07:08 RBC 5.28 M/mm3 (3.65-5.03) H 05/08/16 07:08 Hgb 11.9 gm/dl (11.8-15.2) 05/08/16 07:08 Hct 40.1 % (35.5-45.6) 05/08/16 07:08 MCV 76 fl (84-94) L D 05/08/16 07:08 MCH 23 pg (28-32) L 05/08/16 07:08 MCHC 30 % (32-34) L 05/08/16 07:08 RDW 21.2 % (13.2-15.2) H 05/08/16 07:08 Plt Count 319 K/mm3 (140-440) D 05/08/16 07:08 Lymph % (Auto) Diffusion Furnace Operator 05/07/16 08:46 [place] % (Auto) Diffusion Furnace Operator 05/07/16 08:46 Eos % (Auto) Diffusion Furnace Operator 05/07/16 08:46 Baso % (Auto) Diffusion Furnace Operator 05/07/16 08:46 Lymph # Diffusion Furnace Operator 05/07/16 08:46 [place] # Diffusion Furnace Operator 05/07/16 08:46 Eos # Diffusion Furnace Operator 05/07/16 08:46 Baso # Diffusion Furnace Operator 05/07/16 08:46 Add Manual Diff Complete 05/08/16 07:08 Total Counted 100 05/08/16 07:08 Seg Neutrophils % Diffusion Furnace Operator 05/08/16 07:08 Seg Neuts % (Manual) 96.0 % (40.0-70.0) H 05/08/16 07:08 Band Neutrophils % 0 % 05/08/16 07:08 Lymphocytes % (Manual) 0 % (13.4-35.0) L 05/08/16 07:08 Reactive Lymphs % (Man) 0 % 05/08/16 07:08 Monocytes % (Manual) 4.0 % (0.0-7.3) 05/08/16 07:08 Eosinophils % (Manual) 0 % (0.0-4.3) 05/08/16 07:08 Basophils % (Manual) 0 % (0.0-1.8) 05/08/16 07:08 Metamyelocytes % 0 % 05/08/16 07:08 Myelocytes % 0 % 05/08/16 07:08 Promyelocytes % 0 % 05/08/16 07:08 Blast Cells % 0 % 05/08/16 07:08 Nucleated RBC % Not Reportable 05/08/16 07:08 Seg Neutrophils # Diffusion Furnace Operator 05/07/16 08:46 Seg Neutrophils # Man 27.2 K/mm3 (1.8-7.7) H 05/08/16 07:08 Band Neutrophils # 0.0 K/mm3 05/08/16 07:08 Lymphocytes # (Manual) 0.0 K/mm3 (1.2-5.4) L 05/08/16 07:08 Abs React Lymphs (Man) 0.0 K/mm3 05/08/16 07:08 Monocytes # (Manual) 1.1 K/mm3 (0.0-0.8) H 05/08/16 07:08 Eosinophils # (Manual) 0.0 K/mm3 (0.0-0.4) 05/08/16 07:08 Basophils # (Manual) 0.0 K/mm3 (0.0-0.1) 05/08/16 07:08 Metamyelocytes # 0.0 K/mm3 05/08/16 07:08 Myelocytes # 0.0 K/mm3 05/08/16 07:08 Promyelocytes # 0.0 K/mm3 05/08/16 07:08 Blast Cells # 0.0 K/mm3 05/08/16 07:08 WBC Morphology Not Reportable 05/08/16 07:08 Hypersegmented Neuts Not Reportable 05/08/16 07:08 Hyposegmented Neuts Not Reportable 05/08/16 07:08 Hypogranular Neuts Not Reportable 05/08/16 07:08 Smudge Cells Not Reportable 05/08/16 07:08 Toxic Granulation Not Reportable 05/08/16 07:08 Toxic Vacuolation Not Reportable 05/08/16 07:08 Dohle Bodies Not Reportable 05/08/16 07:08 [place]-Huet Anomaly Not Reportable 05/08/16 07:08 Jose L Rods Not Reportable 05/08/16 07:08 Platelet Estimate Appears normal 05/08/16 07:08 Clumped Platelets Not Reportable 05/08/16 07:08 Plt Clumps, EDTA Not Reportable 05/08/16 07:08 Large Platelets Not Reportable 05/08/16 07:08 Giant Platelets Not Reportable 05/08/16 07:08 Platelet Satelliting Not Reportable 05/08/16 07:08 Plt Morphology Comment Not Reportable 05/08/16 07:08 RBC Morphology Not Reportable 05/08/16 07:08 Dimorphic RBCs Not Reportable 05/08/16 07:08 Polychromasia Rare 05/08/16 07:08 Hypochromasia Not Reportable 05/08/16 07:08 Poikilocytosis 1+ 05/08/16 07:08 Anisocytosis 1+ 05/08/16 07:08 Microcytosis Not Reportable 05/08/16 07:08 Macrocytosis Not Reportable 05/08/16 07:08 Spherocytes Not Reportable 05/08/16 07:08 Pappenheimer Bodies Not Reportable 05/08/16 07:08 Sickle Cells Not Reportable 05/08/16 07:08 Target Cells Not Reportable 05/08/16 07:08 Tear Drop Cells Not Reportable 05/08/16 07:08 Ovalocytes 1+ 05/08/16 07:08 Helmet Cells Few 05/08/16 07:08 [place] Bodies Not Reportable 05/08/16 07:08 [place] Rings Not Reportable 05/08/16 07:08 [place] Cells Not Reportable 05/08/16 07:08 Bite Cells Not Reportable 05/08/16 07:08 Crenated Cell Not Reportable 05/08/16 07:08 Elliptocytes 1+ 05/08/16 07:08 Acanthocytes (Spur) 1+ 05/08/16 07:08 Rouleaux Not Reportable 05/08/16 07:08 Hemoglobin C Crystals Not Reportable 05/08/16 07:08 Schistocytes Rare 05/08/16 07:08 Malaria parasites Not Reportable 05/08/16 07:08 Juan R Bodies Not Reportable 05/08/16 07:08 Hem Pathologist Commnt No 05/08/16 07:08 POC ABG pH 7.475 (7.35-7.45) H 05/07/16 10:38 POC ABG pCO2 41.7 (35-45) 05/07/16 10:38 POC ABG pO2 57 (80-105) L 05/07/16 10:38 POC ABG HCO3 30.7 05/07/16 10:38 POC ABG Total CO2 32 05/07/16 10:38 POC ABG O2 Sat 91 05/07/16 10:38 POC ABG Base Excess 7 05/07/16 10:38 FiO2 21 % 05/07/16 10:38 Sodium 137 mmol/L (137-145) 05/08/16 07:08 Potassium 4.4 mmol/L (3.6-5.0) 05/08/16 07:08 Chloride 96.1 mmol/L (98-107) L 05/08/16 07:08 Carbon Dioxide 22 mmol/L (22-30) 05/08/16 07:08 Anion Gap 23 mmol/L 05/08/16 07:08 BUN 27 mg/dL (9-20) H 05/08/16 07:08 Creatinine 0.9 mg/dL (0.8-1.5) 05/08/16 07:08 Estimated GFR > 60 ml/min 05/08/16 07:08 BUN/Creatinine Ratio 30.00 % 05/08/16 07:08 Glucose 74 mg/dL (75-100) L 05/08/16 07:08 POC Glucose 199 (70-105) H 05/08/16 16:42 Lactic Acid 0.8 mmol/L (0.7-2.0) 04/27/16 13:06 Calcium 9.0 mg/dL (8.4-10.2) 05/08/16 07:08 Magnesium 2.1 mg/dL (1.7-2.3) 05/07/16 08:46 Total Bilirubin 1.6 mg/dL (0.1-1.2) H 05/03/16 18:40 AST 15 units/L (5-40) 05/03/16 18:40 ALT 9 units/L (7-56) 05/03/16 18:40 Alkaline Phosphatase 77 units/L (35-129) 05/03/16 18:40 Troponin T 0.026 ng/mL (0.00-0.029) 04/27/16 13:06 NT-Pro-B Natriuret Pep 818.3 pg/mL (0-900) 04/27/16 13:06 Total Protein 6.4 g/dL (6.3-8.2) 05/03/16 18:40 Albumin 3.2 g/dL (3.9-5) L 05/03/16 18:40 Albumin/Globulin Ratio 1.0 % 05/03/16 18:40 Urine Color Yellow (Yellow) 04/27/16 14:00 Urine Turbidity Slightly-cloudy (Clear) 04/27/16 14:00 Urine pH 5.0 (5.0-7.0) 04/27/16 14:00 Ur Specific [place] 1.019 (1.003-1.030) 04/27/16 14:00 Urine Protein 100 mg/dl mg/dL (Negative) 04/27/16 14:00 Urine Glucose (UA) Neg mg/dL (Negative) 04/27/16 14:00 Urine Ketones Neg mg/dL (Negative) 04/27/16 14:00 Urine Blood Neg (Negative) 04/27/16 14:00 Urine Nitrite Neg (Negative) 04/27/16 14:00 Urine Bilirubin Neg (Negative) 04/27/16 14:00 Urine Urobilinogen < 2.0 mg/dL (<2.0) 04/27/16 14:00 Ur Leukocyte Esterase Neg (Negative) 04/27/16 14:00 Urine WBC (Auto) 1.0 /HPF (0.0-6.0) 04/27/16 14:00 Urine RBC (Auto) 1.0 /HPF (0.0-6.0) 04/27/16 14:00 Urine Bacteria (Auto) 1+ /HPF (Negative) 04/27/16 14:00 Hyaline Casts 1 /LPF 04/27/16 14:00 Urine Mucus Few /HPF 04/27/16 14:00
[2016-05-08] MEDS: REMERON PO SCH (22:05)
[2016-05-09] MEDS: NACL 0.9% 1000 ML 1,000 ML IV SCH (00:08)
[2016-05-09] MEDS: HALDOL IM SCH ×4 (02:43→10:06)
[2016-05-09] MEDS: DUONEB 0.5 MG-3 MG/3 ML SOLN IH SCH ×3 (03:45→14:07)
[2016-05-09] MEDS ORDERED: GLUCOPHAGE FEEDTUBE SCH (08:00)
[2016-05-09] MEDS: AMARYL PO SCH (09:57)
[2016-05-09] MEDS: PEPCID PO SCH (09:58)
[2016-05-09] MEDS: CORDARONE PO SCH (09:59)
[2016-05-09] MEDS: COREG PO SCH (10:22)
--- NOTE | 2016-05-09 11:24 | Progress Note ---
Assessment and Plan - Patient Problems (1) Acute and chronic respiratory failure with hypoxia Current Visit: Yes Status: Acute (2) COPD exacerbation Current Visit: Yes Status: Acute (3) Atrial fibrillation with rapid ventricular response Current Visit: No Status: Acute (4) Diabetes mellitus Current Visit: Yes Status: Chronic Qualifiers: Diabetes mellitus type: type 2 Subjective Date of service: 05/09/16 Principal diagnosis: Acute Hypoxemic Respiratory Failure; Acute COPD exacerbation Interval history: seen and examined at bedside; 24hour events reviewed; nursing and respiratory care staff consulted; no adverse overnight events reported to me; Objective Vital Signs - 12hr 05/08/16 05/09/16 05/09/16 23:55 03:40 03:48 Temperature 97.8 F Pulse Rate [ 94 H Anterior Bilateral Throughout] Pulse Rate [ 90 Bilateral] Pulse Rate [ 92 H Right Radial] Respiratory 16 Rate Respiratory 20 Rate [Anterior Bilateral Throughout] Respiratory 20 Rate [Bilateral ] Blood Pressure Blood Pressure 126/58 [Right Arm] O2 Sat by Pulse 96 Oximetry 05/09/16 05/09/16 05/09/16 06:25 08:00 10:00 Temperature 97.9 F 98.5 F Pulse Rate [ Anterior Bilateral Throughout] Pulse Rate [ Bilateral] Pulse Rate [ 71 76 Right Radial] Respiratory 18 20 Rate Respiratory Rate [Anterior Bilateral Throughout] Respiratory Rate [Bilateral ] Blood Pressure Blood Pressure 141/64 144/67 [Right Arm] O2 Sat by Pulse 93 94 96 Oximetry 05/09/16 05/09/16 10:22 10:58 Temperature Pulse Rate [ Anterior Bilateral Throughout] Pulse Rate [ 94 H Bilateral] Pulse Rate [ Right Radial] Respiratory Rate Respiratory Rate [Anterior Bilateral Throughout] Respiratory 18 Rate [Bilateral ] Blood Pressure 144/77 Blood Pressure [Right Arm] O2 Sat by Pulse Oximetry Constitutional: no acute distress, asleep Eyes: non-icteric ENT: oropharynx moist Neck: supple Effort: mildly labored Ascultation: Bilateral: diminished breath sounds, rhonchi (bases) Cardiovascular: regular rate and rhythm Gastrointestinal: normoactive bowel sounds, soft, non-tender, non-distended Integumentary: normal Extremities: no cyanosis, pulses normal, no ischemia or petechiae Neurologic: non-focal exam (grossly), pupils equal and round Psychiatric: other (dementia element) CBC and BMP: 05/08/16 07:08 05/08/16 07:08 ABG, PT/INR, D-dimer: ABG POC ABG pH 7.475 (7.35-7.45) H 05/07/16 10:38 POC ABG pCO2 41.7 (35-45) 05/07/16 10:38 POC ABG pO2 57 (80-105) L 05/07/16 10:38 POC ABG HCO3 30.7 05/07/16 10:38 POC ABG Total CO2 32 05/07/16 10:38 POC ABG O2 Sat 91 05/07/16 10:38 Abnormal lab findings: Abnormal Labs 04/28/16 04/28/16 04/28/16 06:26 06:26 11:44 WBC RBC Hgb 8.9 L Hct 29.5 L MCV 74 L MCH 22 L MCHC 30 L RDW 20.3 H Plt Count 449 H Lymph % (Auto) 11.0 L [place] % (Auto) Lymph # 1.0 L [place] # Seg Neutrophils % 87.0 H Seg Neuts % (Manual) Lymphocytes % (Manual) Seg Neutrophils # 8.1 H Seg Neutrophils # Man Lymphocytes # (Manual) Monocytes # (Manual) POC ABG pH 7.455 H POC ABG pO2 106 H Sodium Potassium 5.3 H Chloride Carbon Dioxide BUN 26 H Glucose 130 H POC Glucose Total Bilirubin Albumin 3.3 L 04/28/16 04/29/16 04/29/16 17:47 07:18 07:18 WBC 13.7 H RBC Hgb 8.3 L Hct 27.5 L MCV 72 L MCH 22 L MCHC 30 L RDW 19.8 H Plt Count Lymph % (Auto) [place] % (Auto) Lymph # [place] # Seg Neutrophils % Seg Neuts % (Manual) 92.0 H Lymphocytes % (Manual) 4.0 L Seg Neutrophils # Seg Neutrophils # Man 12.6 H Lymphocytes # (Manual) 0.5 L Monocytes # (Manual) POC ABG pH POC ABG pO2 Sodium Potassium Chloride Carbon Dioxide BUN 29 H Glucose 140 H POC Glucose 177 H Total Bilirubin Albumin 04/30/16 05/01/16 05/01/16 06:37 11:44 11:44 WBC 14.9 H RBC Hgb 9.4 L Hct 31.2 L MCV 74 L MCH 22 L MCHC 30 L RDW 20.8 H Plt Count Lymph % (Auto) 6.1 L [place] % (Auto) 10.0 H Lymph # 0.9 L [place] # 1.5 H Seg Neutrophils % 83.8 H Seg Neuts % (Manual) Lymphocytes % (Manual) Seg Neutrophils # 12.5 H Seg Neutrophils # Man Lymphocytes # (Manual) Monocytes # (Manual) POC ABG pH POC ABG pO2 Sodium Potassium 3.5 L D Chloride Carbon Dioxide BUN 33 H Glucose 70 L POC Glucose 63 L Total Bilirubin Albumin 05/02/16 05/02/16 05/02/16 05:44 07:36 07:36 WBC RBC Hgb 10.5 L Hct 34.4 L MCV 73 L MCH 22 L MCHC 31 L RDW 19.9 H Plt Count Lymph % (Auto) 4.8 L [place] % (Auto) Lymph # 0.4 L [place] # Seg Neutrophils % 87.7 H Seg Neuts % (Manual) Lymphocytes % (Manual) Seg Neutrophils # Seg Neutrophils # Man Lymphocytes # (Manual) Monocytes # (Manual) POC ABG pH POC ABG pO2 Sodium Potassium Chloride Carbon Dioxide BUN 28 H Glucose 180 H POC Glucose 175 H Total Bilirubin Albumin 05/03/16 05/03/16 05/04/16 18:40 22:17 08:38 WBC 13.6 H RBC 5.18 H Hgb 11.4 L Hct MCV 77 L D MCH 22 L MCHC 29 L RDW 20.4 H Plt Count Lymph % (Auto) 10.2 L [place] % (Auto) 14.9 H Lymph # [place] # 2.0 H Seg Neutrophils % 74.6 H Seg Neuts % (Manual) Lymphocytes % (Manual) Seg Neutrophils # 10.2 H Seg Neutrophils # Man Lymphocytes # (Manual) Monocytes # (Manual) POC ABG pH POC ABG pO2 Sodium Potassium Chloride Carbon Dioxide BUN 30 H Glucose 54 L POC Glucose 64 L Total Bilirubin 1.6 H Albumin 3.2 L 05/04/16 05/04/16 05/04/16 08:38 16:20 21:54 WBC RBC Hgb Hct MCV MCH MCHC RDW Plt Count Lymph % (Auto) [place] % (Auto) Lymph # [place] # Seg Neutrophils % Seg Neuts % (Manual) Lymphocytes % (Manual) Seg Neutrophils # Seg Neutrophils # Man Lymphocytes # (Manual) Monocytes # (Manual) POC ABG pH POC ABG pO2 Sodium Potassium Chloride Carbon Dioxide 21 L BUN 30 H Glucose POC Glucose 140 H 180 H Total Bilirubin Albumin 05/05/16 05/05/16 05/05/16 05:27 07:28 11:27 WBC RBC Hgb Hct MCV MCH MCHC RDW Plt Count Lymph % (Auto) [place] % (Auto) Lymph # [place] # Seg Neutrophils % Seg Neuts % (Manual) Lymphocytes % (Manual) Seg Neutrophils # Seg Neutrophils # Man Lymphocytes # (Manual) Monocytes # (Manual) POC ABG pH POC ABG pO2 Sodium Potassium Chloride Carbon Dioxide BUN 26 H Glucose 143 H POC Glucose 157 H 131 H Total Bilirubin Albumin 05/05/16 05/05/16 05/06/16 17:09 20:47 16:14 WBC RBC Hgb Hct MCV MCH MCHC RDW Plt Count Lymph % (Auto) [place] % (Auto) Lymph # [place] # Seg Neutrophils % Seg Neuts % (Manual) Lymphocytes % (Manual) Seg Neutrophils # Seg Neutrophils # Man Lymphocytes # (Manual) Monocytes # (Manual) POC ABG pH POC ABG pO2 Sodium Potassium Chloride Carbon Dioxide BUN Glucose POC Glucose 196 H 184 H 69 L Total Bilirubin Albumin 05/06/16 05/07/16 05/07/16 21:55 06:45 08:46 WBC 17.0 H RBC Hgb 10.9 L Hct MCV 82 L MCH 23 L MCHC 28 L RDW 21.2 H Plt Count 130 L Lymph % (Auto) [place] % (Auto) Lymph # [place] # Seg Neutrophils % Seg Neuts % (Manual) Lymphocytes % (Manual) Seg Neutrophils # Seg Neutrophils # Man Lymphocytes # (Manual) Monocytes # (Manual) POC ABG pH POC ABG pO2 Sodium Potassium Chloride Carbon Dioxide BUN Glucose POC Glucose 113 H 109 H Total Bilirubin Albumin 05/07/16 05/07/16 05/08/16 08:46 10:38 05:39 WBC RBC Hgb Hct MCV MCH MCHC RDW Plt Count Lymph % (Auto) [place] % (Auto) Lymph # [place] # Seg Neutrophils % Seg Neuts % (Manual) Lymphocytes % (Manual) Seg Neutrophils # Seg Neutrophils # Man Lymphocytes # (Manual) Monocytes # (Manual) POC ABG pH 7.475 H POC ABG pO2 57 L Sodium 136 L Potassium Chloride Carbon Dioxide BUN 32 H Glucose 111 H POC Glucose 62 L Total Bilirubin Albumin 05/08/16 05/08/16 05/08/16 07:08 07:08 16:42 WBC 28.3 H RBC 5.28 H Hgb Hct MCV 76 L D MCH 23 L MCHC 30 L RDW 21.2 H Plt Count Lymph % (Auto) [place] % (Auto) Lymph # [place] # Seg Neutrophils % Seg Neuts % (Manual) 96.0 H Lymphocytes % (Manual) 0 L Seg Neutrophils # Seg Neutrophils # Man 27.2 H Lymphocytes # (Manual) 0.0 L Monocytes # (Manual) 1.1 H POC ABG pH POC ABG pO2 Sodium Potassium Chloride 96.1 L Carbon Dioxide BUN 27 H Glucose 74 L POC Glucose 199 H Total Bilirubin Albumin 05/08/16 05/09/16 21:34 06:04 WBC RBC Hgb Hct MCV MCH MCHC RDW Plt Count Lymph % (Auto) [place] % (Auto) Lymph # [place] # Seg Neutrophils % Seg Neuts % (Manual) Lymphocytes % (Manual) Seg Neutrophils # Seg Neutrophils # Man Lymphocytes # (Manual) Monocytes # (Manual) POC ABG pH POC ABG pO2 Sodium Potassium Chloride Carbon Dioxide BUN Glucose POC Glucose 233 H 115 H Total Bilirubin Albumin
[2016-05-09] MEDS ORDERED: ZESTRIL PO SCH (12:00)
--- NOTE | 2016-05-09 12:29 | Progress Note ---
Assessment and Plan No significant change in cardiac status.Prognosis is guarded due to multiple medical problems. - Patient Problems (1) Acute and chronic respiratory failure with hypoxia Current Visit: Yes Status: Acute (2) Acute on chronic systolic heart failure Current Visit: Yes Status: Acute (3) Non-sustained ventricular tachycardia Current Visit: Yes Status: Acute (4) Diabetes mellitus Current Visit: Yes Status: Chronic Qualifiers: Diabetes mellitus type: type 2 (5) Hypertension Current Visit: Yes Status: Chronic Qualifiers: Hypertension type: essential hypertension Qualified Code(s): I10 - Essential (primary) hypertension (6) Ischemic cardiomyopathy Current Visit: Yes Status: Chronic (7) Paroxysmal atrial flutter Current Visit: Yes Status: Chronic (8) CAD (coronary artery disease) Current Visit: No Status: Chronic Qualifiers: Coronary Disease-Associated Artery/Lesion type: [place] artery (9) Hx of CABG Current Visit: No Status: Chronic Subjective Date of service: 05/09/16 Principal diagnosis: Acute Hypoxemic Respiratory Failure; Acute COPD exacerbation Interval history: Appears comfortable.Difficult to comunicate. Objective Vital Signs Temp Pulse Pulse Pulse Pulse Pulse Resp 05/09/16 10:58 94 H 05/09/16 10:22 05/09/16 10:00 05/09/16 08:00 98.5 F 76 20 05/09/16 06:25 97.9 F 71 18 05/09/16 03:48 90 05/09/16 03:40 94 H 05/08/16 23:55 97.8 F 92 H 16 05/08/16 22:07 92 H 05/08/16 21:46 78 05/08/16 21:32 99 H 05/08/16 21:31 05/08/16 20:00 92 H 16 05/08/16 19:40 98.4 F 92 H 18 05/08/16 18:43 102 H 05/08/16 16:30 97.2 F L 102 H 20 05/08/16 15:03 108 H 05/08/16 14:53 105 H 05/08/16 14:05 98.5 F 135 H 24 05/08/16 13:30 124 H 158 H 05/08/16 13:15 122 H 18 05/08/16 13:00 118 H 17 05/08/16 12:48 103 H 18 05/08/16 12:34 99.7 F H 104 H 14 Resp Resp BP BP Pulse Ox 05/09/16 10:58 18 05/09/16 10:22 144/77 05/09/16 10:00 96 05/09/16 08:00 144/67 94 05/09/16 06:25 141/64 93 05/09/16 03:48 20 05/09/16 03:40 20 05/08/16 23:55 126/58 96 05/08/16 22:07 150/60 05/08/16 21:46 16 05/08/16 21:32 18 05/08/16 21:31 95 05/08/16 20:00 98 05/08/16 19:40 150/66 94 05/08/16 18:43 121/74 05/08/16 16:30 121/74 98 05/08/16 15:03 20 05/08/16 14:53 20 05/08/16 14:05 153/92 65 L 05/08/16 13:30 138/78 9 L 05/08/16 13:15 124/73 97 05/08/16 13:00 126/74 98 05/08/16 12:48 122/59 97 05/08/16 12:34 138/60 92 - Physical Examination General: No Apparent Distress HEENT: Positive: PERRL, Mucus Membranes Moist Neck: Positive: neck supple, trachea midline Cardiac: Positive: Reg Rate and Rhythm Lungs: Positive: clear to auscultation Neuro: Positive: Other (appears somewhat confused) Abdomen: Positive: Soft, Active Bowel Sounds, Other (Post peg placement). Negative: Tender, Distended Skin: Positive: Clear Incision: Cardiac Cath Site Musculoskeletal: No Pain, Normal Range of Motion Extremities: Present: normal. Absent: edema - Imaging and Cardiology Echo: report reviewed (EF 25 30% with mild aortic regurgitation)
[2016-05-09 12:37] VITALS: BP 140/64
--- NOTE | 2016-05-09 14:39 | Progress Note ---
Assessment and Plan 1. s/p G-tube placement - tolerating TF well. No complications. Will sign off. Thanks. Subjective Date of service: 05/09/16 Principal diagnosis: Acute Hypoxemic Respiratory Failure; Acute COPD exacerbation Interval history: Pt laying in bed, mouth breathing, looking towards voice. Objective - Constitutional Vitals: Vital Signs - 12hr 05/09/16 05/09/16 05/09/16 03:40 03:48 06:25 Temperature 97.9 F Pulse Rate [ 94 H Anterior Bilateral Throughout] Pulse Rate [ 90 Bilateral] Pulse Rate [ 71 Right Radial] Respiratory 18 Rate Respiratory 20 Rate [Anterior Bilateral Throughout] Respiratory 20 Rate [Bilateral ] Blood Pressure Blood Pressure 141/64 [Right Arm] O2 Sat by Pulse 93 Oximetry 05/09/16 05/09/16 05/09/16 08:00 10:00 10:22 Temperature 98.5 F Pulse Rate [ Anterior Bilateral Throughout] Pulse Rate [ Bilateral] Pulse Rate [ 76 Right Radial] Respiratory 20 Rate Respiratory Rate [Anterior Bilateral Throughout] Respiratory Rate [Bilateral ] Blood Pressure 144/77 Blood Pressure 144/67 [Right Arm] O2 Sat by Pulse 94 96 Oximetry 05/09/16 05/09/16 05/09/16 10:58 12:26 14:07 Temperature Pulse Rate [ Anterior Bilateral Throughout] Pulse Rate [ 94 H 96 H Bilateral] Pulse Rate [ Right Radial] Respiratory Rate Respiratory Rate [Anterior Bilateral Throughout] Respiratory 18 18 Rate [Bilateral ] Blood Pressure 140/64 Blood Pressure [Right Arm] O2 Sat by Pulse Oximetry General appearance: Present: no acute distress, other (Poorly responsive) - EENT Eyes: PERRL, EOM intact - Gastrointestinal General gastrointestinal: Present: soft, non-tender, other (G-tube site clean, no discharge) - Labs CBC & Chem 7: 05/08/16 07:08 05/08/16 07:08 Labs: Abnormal lab results 05/08/16 05/08/16 05/08/16 Range/Units 05:39 16:42 21:34 POC Glucose 62 L 199 H 233 H (70-105) 05/09/16 05/09/16 Range/Units 06:04 11:10 POC Glucose 115 H 154 H (70-105)
[2016-05-09] MEDS ORDERED: ADRENALIN ONE (14:55)
[2016-05-09] MEDS ORDERED: SODIUM BICARBONATE IV ONE (14:55)
--- NOTE | 2016-05-09 16:14 | Event Note ---
Date: 05/09/16 I was called to see this patient and intubate secondary to a CODE BLUE. The hospitalist, Dr. Valdez, was bedside and was running the code using ACLS protocol so that I could focus on intubation. Patient's oropharynx was blocked by what appeared to be a foreign body but ended up being a large amount of the patient's own tissue and secretions that had congealed in the oropharynx. Direct visualization was attempted but I could not see the vocal cords until the tissue was removed, which was done by forceps. Patient was receiving bag valve mask ventilation. A Mac 3 blade was used and the vocal cords were then visualized. A 7.5 tube wasn't placed and seen going through the vocal cords to 24 cm at the lips. The bulb was inflated and at this point there was good condensation in the tube with bag valve ventilation. There was color change capnography and bilateral breath sounds.
--- NOTE | 2016-05-09 20:13 | Event Note ---
Date: 05/09/16
--- NOTE | 2016-05-09 20:14 | Death Summary ---
Summary - Providers Date of service: 05/09/16 Consults: 05/05/16 16:52 Consult to Dietitian/Nutrition [CONS] Routine Physician Instructions: Reason For Exam: Reason for Consult: Write/Manage Tube Feeding 05/08/16 12:45 Consult to Dietitian/Nutrition [CONS] Routine Physician Instructions: Reason For Exam: Reason for Consult: Write/Manage Tube Feeding 04/27/16 22:15 Speech Therapy Evaluation and Treat [CONS] Urgent Reason For Exam: UNABLE TO SWALLOW WATER 05/01/16 14:47 Consult to Physician [CONS] Routine Consulting Provider: DANISH WILLIAM Reason For Exam: A.fib episodes of Vtach Place consult to:: cardiology Notified:: answering service Phone number called:: [phone] Was contact made?: Yes If yes, spoke with:: flor Time called:: 19:00 05/02/16 08:23 Consult to Mental Health [CONS] Routine Reason For Exam: agitation, combative Place consult to:: mental health Notified:: ANCHOR Phone number called:: [phone] Was contact made?: Yes If yes, spoke with:: VINAY Time called:: 09:28 Comment:: COMPLETED Eleanor HOPE 05/02/16 10:58 Consult to Physician [CONS] Routine Consulting Provider: ROCIO LEE Reason For Exam: NPO, couldn't finish swallow eval Place consult to:: [facility] Notified:: ANSWERING SERVICE Phone number called:: [phone] Was contact made?: Yes Time called:: 11:56 Comment:: COMPLETED Attending: DEONDRE MCCOY - summary Date of admission: 04/27/16 16:45 Date of : 05/09/16
--- NOTE | 2016-05-18 08:40 | Query- Present on Admission ---
Paul Sandoval Date:_05/18/16 Peoplesoft/CDS:Alma Delia/Kennedy Valencia Phone#:_[phone] Exercise your independent professional judgment when responding to this query. Questions asked do not imply a particular answer is desired or expected. We greatly appreciate your clarification on this issue. Clinical Documentation States: 75 Y/O Male admitted on 04/27/16 with Hx. of COPD, A-Fib, HTN presented from a intermediate with shortness of breath, on BiPAP having runs of nonsustained V. Tach. Clinical Findings Show: Consult note from 05/02/16 states "Non-STEMI type II" Based on the above clinical scenario and your knowledge of the patient's case please clarify if the diagnosis stated below was present on admission: Diagnosis: Non-STEMI type II Present on admission : [x ] Yes (Y) [ ] Clinically undeterminable(W) [ ] No(N) Please also document response in your Progress Notes and/or Discharge Summary and indicate if the condition was present on admission. MTDD
== END 2016-05-09 15:01 ==
LOC: ED 12:15 → CC1 16:45 → 3A 04-28 16:58
PROVIDERS: ADMIT Internal Medicine; ATTEND Internal Medicine
PROC: 4A033R1 Measurement of Arterial Saturation, Peripheral, Percutaneous Approach (ICD-10-PCS; 2016-04-27)
PROC: 5A09457 Assistance with Respiratory Ventilation, 24-96 Consecutive Hours, Continuous Positive Airway Pressure (ICD-10-PCS; 2016-05-02)
PROC: 0DH63UZ Insertion of Feeding Device into Stomach, Percutaneous Approach (ICD-10-PCS; principal; 2016-05-08)
DX: I21.4 Non-ST elevation (NSTEMI) myocardial infarction (principal); J96.01 Acute respiratory failure with hypoxia; J96.02 Acute respiratory failure with hypercapnia; N18.6 End stage renal disease; J96.21 Acute and chronic respiratory failure with hypoxia; J96.22 Acute and chronic respiratory failure with hypercapnia; I50.23 Acute on chronic systolic (congestive) heart failure; J44.1 Chronic obstructive pulmonary disease with (acute) exacerbation; E44.0 Moderate protein-calorie malnutrition; I48.92 Unspecified atrial flutter; Z68.1 Body mass index [BMI] 19.9 or less, adult; I13.2 Hypertensive heart and chronic kidney disease with heart failure and with stage 5 chronic kidney disease, or end stage renal disease; K21.9 Gastro-esophageal reflux disease without esophagitis; M19.90 Unspecified osteoarthritis, unspecified site; J45.909 Unspecified asthma, uncomplicated; E78.5 Hyperlipidemia, unspecified; F60.9 Personality disorder, unspecified; R45.1 Restlessness and agitation; I25.10 Atherosclerotic heart disease of native coronary artery without angina pectoris; I48.0 Paroxysmal atrial fibrillation; E11.22 Type 2 diabetes mellitus with diabetic chronic kidney disease; I25.5 Ischemic cardiomyopathy; D64.9 Anemia, unspecified; R13.12 Dysphagia, oropharyngeal phase; G47.00 Insomnia, unspecified; Z79.01 Long term (current) use of anticoagulants; Z85.118 Personal history of other malignant neoplasm of bronchus and lung; Z98.49 Cataract extraction status, unspecified eye; Z98.890 Other specified postprocedural states; Z87.891 Personal history of nicotine dependence; Z79.899 Other long term (current) drug therapy; Z79.82 Long term (current) use of aspirin; Z78.1 Physical restraint status; Z86.73 Personal history of transient ischemic attack (TIA), and cerebral infarction without residual deficits; Z82.49 Family history of ischemic heart disease and other diseases of the circulatory system; E87.5 Hyperkalemia; E87.6 Hypokalemia
CPT/HCPCS: 36415; 36600; 51702; 71010; 71020; 74000; 74230; 80048; 80053; 81001; 82140; 82803; 82962; 83735; 83880; 84484; 85007; 85025; 87040; 93005; 93010; 93306; 94640; 94660; 94760; 96365; 96366; 96375; A9270-GY; G8996-GN; G8997-GN; J0171; J0690; J1170; J1630; J1650; J1815; J1940; J1956; J2060; J2250; J2920; J2930; J3010; J3475; J7030; J7070